=== PATIENT | male | born 1935 | race Hispanic/Latino ===

== ENCOUNTER 2018-06-03 20:20 | Observation (INO) | payer OTHER ==
--- OUTSIDE RECORDS SUMMARY | 2018-06-03 20:22 | XMS REPORT ---
:1935 Author Organization eClinicalWorks Care Team Providers Name Role Phone Gina Catalan Provider Role Unavailable Allergies, Adverse Reactions, Alerts Substance Reaction Event Type N.K.D.A. 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 Active Problem 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 Active Problem Hyperlipidemia, mixed E78.2 Active Problem Left sided colitis with rectal K51.511 Active bleeding Problem HTN (hypertension) I10 Active Problem Glaucoma H40.9 Active Problem Cataract H26.9 Active Problem Spinal stenosis in cervical region M48.02 Active Problem Left sided colitis with rectal K51.511 Active bleeding Problem Thrombocytopenia D69.6 Active Problem Degenerative cervical disc M50.30 Active Problem Mixed hyperlipidemia E78.2 Active Problem Chronic systolic congestive heart I50.22 Active failure Medications Medication Code Code Instructions Start End Status Dosage System Date Date [facility] 19741198847 81 MG Orally Active 1 tablet Once a day Metoprolol [facility] 87563519245 25 MG Orally Active 1 tablet Tartrate Twice a day with food Combigan [facility] 12009247375 0.2-0.5 % Active 1 drop into Ophthalmic affected Twice a day eye Pravastatin ND 70318686138 20 MG Orally Active 1 tablet Sodium Once a day Metoprolol ND 71313987984 25 MG Orally Active 1 tablet Tartrate Twice a day with food Pravastatin [facility] 73364579903 20 MG Orally Active 1 tablet Sodium Once a day Travatan Z ND 22860044064 0.004 % Active 1 drop into Ophthalmic Once affected a day eye in the evening Results No Known Results Immunizations Vaccine Administration Date FluAD Jan 06, 2018 Summary Purpose eClinicalWorks Submission
--- OUTSIDE RECORDS SUMMARY | 2018-06-03 20:22 | XMS REPORT ---
:1935 Author Organization eClinicalWorks Care Team Providers Name Role Phone Catalan, Na Provider Role Unavailable Allergies, Adverse Reactions, Alerts Substance Reaction Event Type N.K.D.A. 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 Problem Systolic CHF I50.20 Active Problem Congestive heart failure, systolic, I50.20 Active left NYHA class 4 Problem Cataract H26.9 Active Assessment Medicare annual wellness visit, Z00.00 Active initial Problem Glaucoma H40.9 Active Problem Benign essential [...] Start End Status Dosage System Date Date Travatan Z [facility] 63777671660 0.004 % Active 1 drop into Ophthalmic Once affected a day eye in the evening Combigan [facility] 04934518035 0.2-0.5 % Active 1 drop into Ophthalmic affected Twice a day eye Entresto [facility] 20832036573 24/26mg oral Dec 03, Active one 24/26mg bid 2017 Pravastatin ND 45049503508 20 MG Orally Active 1 tablet Sodium Once a day Metoprolol ND 75582346120 25 MG Orally Active 1 tablet Tartrate Twice a day with food Aspir-81 [facility] 10174005422 81 MG Orally Active 1 tablet Once a day Results No Known Results Summary Purpose eClinicalWorks Submission
--- OUTSIDE RECORDS SUMMARY | 2018-06-03 20:22 | XMS REPORT ---
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 Problem Mixed hyperlipidemia E78.2 Active Problem Chronic systolic congestive heart I50.22 Active failure Medications Medication Code Code Instructions Start End Status Dosage System Date Date Combigan [facility] [place] 46616801205 0.2-0.5 % Active 1 drop into Ophthalmic affected Twice a day eye Travatan Z [facility] [place] 16509605309 0.004 % Active 1 drop into Ophthalmic Once affected a day eye in the evening Pravastatin [facility] [place] 39427832249 20 MG Orally Active 1 tablet Sodium Once a day Aspir-81 [facility] [place] 55714259989 81 MG Orally Active 1 tablet Once a day Pravastatin [facility] [place] 30173003866 20 MG Orally Active 1 tablet Sodium Once a day Metoprolol [facility] [place] 48747247475 25 MG Orally Active 1 tablet Tartrate Twice a day with food Metoprolol [facility] [place] 31572680913 25 MG Orally Active 1 tablet Tartrate Twice a day with food Results No Known Results Summary Purpose eClinicalWorks Submission
--- OUTSIDE RECORDS SUMMARY | 2018-06-03 20:22 | XMS REPORT ---
:1935 Author Organization eClinicalWorks Care Team Providers Name Role Phone Catalan, Gina Provider Role Unavailable Allergies, Adverse Reactions, Alerts Substance Reaction Event Type N.K.D.A. 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 Problem Systolic CHF I50.20 Active Problem Congestive heart failure, systolic, I50.20 Active left NYHA class 4 Problem Cataract H26.9 Active Problem Glaucoma H40.9 Active Assessment HTN (hypertension) I10 Active Assessment Chronic systolic congestive heart I50.22 Active failure Problem Benign essential HTN I10 Active Assessment Mixed hyperlipidemia E78.2 Active Problem Degenerative disc disease, cervical M50.30 [...] Active bleeding Problem Thrombocytopenia D69.6 Active Problem Mixed hyperlipidemia E78.2 Active Medications Medication Code Code Instructions Start End Status Dosage System Date Date Travatan Z ND 23868156319 0.004 % Active 1 drop into Ophthalmic affected eye Once a day in the evening Indomethacin ND 67352317553 50 MG Orally Jan 25, Active 1 capsule TID 2017 Combigan [facility] 52612100386 0.2-0.5 % Active 1 drop into Ophthalmic affected eye Twice a day Clotrimazole-Be ND 00317278517 1-0.05 % Mar 06, Active 1 application tamethasone Externally 2018 to affected Twice a day area Vitamin D-3 [facility] 412[address] Active not defined Clindamycin HCl [facility] 03351733912 300 MG Orally Oct 20, Active 1 capsule QID 2017-81 [facility] 12485639421 81 MG Orally Active 1 tablet Once a day Entresto [facility] 26218799349 49/51mg oral Mar 06, Active one 49/51mg bid 2017 Entresto [facility] 0 Active not defined 24/26mg Pravastatin [facility] 31971021876 20 MG Orally Active 1 tablet Sodium Once a day Pravastatin [facility] 34437064808 20 MG Orally Active 1 tablet Sodium Once a day Metoprolol [facility] 04396040540 25 MG Orally Active 1 tablet with Tartrate Twice a day food PreserVision [facility] [address]-55 Active not defined AREDS Fiber Adult [facility] [address] Active not defined Gummies Results No Known Results Summary Purpose eClinicalWorks Submission
--- OUTSIDE RECORDS SUMMARY | 2018-06-03 20:22 | XMS REPORT ---
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 Problem Benign essential HTN I10 Active Problem Degenerative disc disease, cervical M50.30 Active Problem 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 Active Problem Hyperlipidemia, mixed E78.2 Active Problem Left sided colitis with rectal K51.511 Active bleeding Problem HTN (hypertension) I10 Active Problem Glaucoma H40.9 Active Assessment Chronic systolic congestive heart I50.22 Active failure Problem Cataract H26.9 Active Problem Spinal stenosis in cervical region M48.02 Active Problem Left sided colitis with rectal K51.511 Active bleeding Problem Thrombocytopenia D69.6 Active Problem Degenerative cervical disc M50.30 Active Assessment Thrombocytopenia D69.6 Active Problem Mixed hyperlipidemia E78.2 Active Problem Chronic systolic congestive heart I50.22 Active failure Medications Medication Code Code Instructions Start End Status Dosage System Date Date Entresto [facility] 68610321728 24/26mg oral Dec 03, Active one 24/26mg bid 2017 Metoprolol [facility] 17885378275 25 MG Orally Active 1 tablet Tartrate Twice a day with food Travatan Z ND 58996557766 0.004 % Active 1 drop into Ophthalmic Once affected a day eye in the evening Combigan [facility] 97240955938 0.2-0.5 % Active 1 drop into Ophthalmic affected Twice a day eye Pravastatin ND 67497029733 20 MG Orally Active 1 tablet Sodium Once a day Aspir-81 [facility] 52962846425 81 MG Orally Active 1 tablet Once a day Results No Known Results Summary Purpose eClinicalWorks Submission
--- OUTSIDE RECORDS SUMMARY | 2018-06-03 20:22 | XMS REPORT ---
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
--- OUTSIDE RECORDS SUMMARY | 2018-06-03 20:22 | XMS REPORT | Clinical Summary ---
:1935 Author Organization [facility] Address [address] [place] [address] Care Team Providers Name Role Phone Gina Catalan DO Primary Care Provider Allergies No Known Allergies Medications Medication Sig Dispensed Refills Start Date End Date Status traMADol (ULTRAM) 50 Take 50 mg by mouth 0 Active mg tablet every 6 (six) hours as needed for moderate pain (prn for pain). pravastatin Take 20 mg by mouth 0 Active (PRAVACHOL) 20 MG nightly. tablet aspirin (ECOTRIN) 81 Take 81 mg by mouth 0 Active MG enteric coated daily. tablet travoprost 1 drop nightly. 0 Active (TRAVATAN-Z) 0.004 % timolol (BETIMOL) 0.5 Administer 1 drop 0 Active % ophthalmic solution to the right eye 2 (two) times a day. metoprolol succinate Take 25 mg by mouth 0 Active XL (TOPROL-XL) 25 mg daily. 24 hr tablet sacubitril-valsartan Take 1 tablet by 0 Active (ENTRESTO) 24-26 mg mouth 2 (two) times tablet per tablet a day. cholecalciferol, Take 1,000 Units by 0 Active vitamin D3, (VITAMIN mouth daily. D3) 1,000 unit tablet ANTIOX Take by mouth. 0 Active #8/OM3/DHA/EPA/LUT/ZE AX (PRESERVISION AREDS 2, OMEGA-3, ORAL) BRAN/GUM/FIB/ERIC/PSYL Take by mouth. 0 Active /KELP/PEC (FIBER 6 ORAL) Active Problems Problem Noted Date Cardiomyopathy 12/26/2016 Family History Medical History Relation Name Comments Hypertension Mother Relation Name Status Comments Father Mother Social History Tobacco Use Types Packs/Day Years Used Date Former Smoker Quit: 12/26/1963 Alcohol Use Drinks/Week oz/Week Comments No Sex Assigned at Date Recorded Not on file Job Start Date Occupation Industry Not on file Not on file Not on file Travel History Travel Start Travel End No recent travel history available. Last Filed Vital Signs Not on file Plan of Treatment Health Maintenance Due Date Last Done Comments SHINGLES VACCINES (#1) 1984 65+ PNEUMOCOCCAL VACCINE (1 of 2 - PCV13) 07/04/1999 PNEUMOCOCCAL POLYSACCHARIDE VACCINE AGE 65 AND OVER 07/04/1999 INFLUENZA VACCINE 11/06/2017 Implants Implanted Type Area Animal Science Professor Device Shelf Model / Identifier Expiration Serial / Date Lot Endotak [place] G Model 0295 59 Cm Df4 Tachy Lead - [id number] - [id number] Cardiac Pacing N/A: [place] 06/01/2018 0295 / Implanted: Qty: 1 on 12/26/2016 by Venkata Millard Jr., MD Leads or N/A [employer] [id number] / Electrodes or [id number] Accessories Acuity X4 Spiral S Lv Pacing Lead - [id number] - [id number] Cardiac Pacing N/A: [place] 02/08/2018 4674 / Implanted: Qty: 1 on 12/26/2016 by Venkata Millard Jr., MD Leads or N/A [employer]Qi CRM [id number] / Electrodes or [id number] Accessories Ingevity Ld Bg1 Pfret Str Mri Is1 7740 45cm - [id number] - [id number] Cardiac Pacing N/A: [place] 07/05/2018 7740 / Implanted: Qty: 1 on 12/26/2016 by Venkata Millard Jr., MD Leads or N/A [employer] CRM [id number] / Electrodes or [id number] Accessories Generator Media Professional-D Dynagen X4 Df4 - [id number] - [id number] Defibrillator N/A: [place] 07/10/2018 G158 / Implanted: Qty: 1 on 12/26/2016 by Venkata Millard Jr., MD ICD Devices N/A SCIENTIFIC- CRM [id number] / [id number] Results Not on fileafter 06/02/2017 Insurance Payer Benefit Plan / Group Subscriber ID Type Phone Address MEDICARE MEDICARE PART A AND B xxxxxxxxxx Medicare [place], [place] Advance Directives Patient has advance care planning documents on file. For more information, please contact:H[address] [place] [address]
[2018-06-03 21:14] LABS: Absolute Lymphocytes (CBC) 2.1 K/uL (0.7-4.9); Absolute Monocytes 0.8 K/uL (0.1-1.3); Absolute Neutrophil 4.7 K/uL (1.8-8.0); Basophils % 1.2 % (0-1.3); Eosinophils % 6.5 % (0-4.4); Hematocrit 43.2 % (39.6-49.0); Lymphocytes % 25.6 % (15.3-44.8); MPV 11.9 fL (7.6-11.3); Monocytes % 9.9 % (3.3-12.3); RBC Red Blood Cell Count 4.47 M/uL (4.33-5.43)
[2018-06-03 21:16] LABS: Protime INR 1.12
[2018-06-03 21:35] LABS: Albumin 3.7 g/dL (3.4-5.0); Bilirubin Direct 0.2 mg/dL (0-0.2); Bilirubin Total 0.4 mg/dL (0.2-1.0); Magnesium 2.2 mg/dL (1.8-2.4); Potassium 3.8 mmol/L (3.5-5.1); Protein, Total 7.2 g/dL (6.4-8.2); Troponin (Emerg Dept Use Only) 0.04 ng/mL (0.0-0.045)
[2018-06-03 22:02] LABS: Blood Morphology Comment NOT SEEN (NOT SEEN); Platelet Estimate ADEQ; Urine White Blood Cell Casts OK
--- NOTE | 2018-06-03 23:01 | ER ---
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 pt denies N/V. pt c/o ak1 SOB. Transition of care: patient was not received from another setting of care. Onset of symptoms was June 03, 2018. Risk Assessment: Do you want to hurt yourself or someone else? Patient reports no desire to harm self or others. Initial Sepsis Screen: Does the patient meet any 2 criteria? No. Patient's initial sepsis screen is negative. Does the patient have a suspected source of infection? No. Patient's initial sepsis screen is negative. Note pt sees Dr. Lopez for cardiology. Care prior to arrival: None. 20:28 Method Of Arrival: Ambulatory ak1 20:28 Acuity: AMRIT 3 ak1 Triage Assessment: 20:28 General: Appears in no apparent distress. Behavior is calm, cooperative. Pain: ak1 Complains of pain in xyphoid area and mid-sternal area. Cardiovascular: Reports chest pain, shortness of breath. Respiratory: Reports shortness of breath at rest on exertion Airway is patent. Historical: - Allergies: 20:28 No Known Allergies; ak1 - Home Meds: 21:32 metoprolol tartrate 25 mg Oral tab once daily [Active]; pravastatin 20 mg Oral tab bb nightly [Active]; travatan eye drop both eyes bid [Active]; aspirin 81 mg Oral chew 1 tab once daily [Active]; Entresto 24-26 mg oral tab [Active]; - PMHx: 20:28 Glaucoma; High Cholesterol; Hypertension; ak1 - PSHx: 20:28 pacemaker/deifb; ak1 - Immunization history:: Adult Immunizations unknown. - Social history:: Smoking status: Patient/guardian denies using tobacco. - Ebola Screening: : No symptoms or risks identified at this time. Screenin:22 Abuse screen: Denies threats or abuse. Denies injuries from another. Nutritional ls4 screening: No deficits noted. Tuberculosis screening: No symptoms or risk factors identified. Fall Risk None identified. Assessment: 20:22 General: Appears in no apparent distress. Behavior is calm, cooperative. ls4 20:22 Pain: Pain does not radiate. Pain began suddenly, 1 hour ago. Is intermittent, Also ls4 complains of diaphoresis. Cardiovascular: Capillary refill < 3 seconds. Respiratory: Respiratory effort is even, unlabored, Respiratory pattern is regular. Musculoskeletal: No deficits noted. 23:08 Reassessment: Patient appears in no apparent distress at this time. Patient and/or ak1 family updated on plan of care and expected duration. Pain level reassessed. Patient is alert, oriented x 3, equal unlabored respirations, skin warm/dry/pink. pt and family informed of admission status. will continue to monitor. Patient states feeling better. Patient states symptoms have improved. 06/04 00:40 Reassessment: Patient appears in no apparent distress at this time. pt resting with ak1 eyes closed resp even and unlabored. 01:51 Reassessment: Patient appears in no apparent distress at this time. No changes from ak1 previously documented assessment. Vital Signs: 06/03 20:28 BP 147 / 103; Pulse 111; Resp 18; Temp 98.6; Pulse Ox 98% on R/A; Weight 77.11 kg (R); ak1 Height 5 ft. 6 in. (167.64 cm) (R); Pain 0/10; 21:34 BP 130 / 79; Pulse 89; Resp 16; Pulse Ox 98% on R/A; Pain 0/10; ls4 23:07 BP 124 / 82; Pulse 84; Resp 20; Temp 98.6; Pulse Ox 98% on R/A; ak1 06/04 00:40 BP 115 / 67; Pulse 82; Resp 14; Pulse Ox 98% on R/A; Pain 0/10; ak1 01:51 BP 125 / 67; Pulse 82; Resp 12; Pulse Ox 99% on R/A; Pain 0/10; ak1 06/03 20:28 Body Mass Index 27.44 (77.11 kg, 167.64 cm) ak ED Course: 06/03 20:20 Patient arrived in ED. am2 20:21 Gina Catalan MD is Private Physician. am2 20:28 Triage completed. ak1 20:28 Arm band placed on Patient placed in an exam room, on a stretcher, Patient notified of ak1 wait time. EKG completed in triage. Results shown to MD. 20:30 monitoring engineer on. Pulse ox on. NIBP on. ls4 20:30 Patient has correct armband on for positive identification. Placed in gown. Bed in low ls4 position. Call light in reach. Side rails up X 1. 20:30 No provider procedures requiring assistance completed. Inserted saline lock: 20 gauge ls4 in right forearm, using aseptic technique. Patient maintains SpO2 saturation greater than 95% on room air. 20:30 Initial lab(s) drawn, by me, sent to lab. ls4 20:33 Mauricio Greco MD is Attending Physician. tw4 20:41 Maria Fernanda Lindsay, RN is Primary Nurse. ls4 21:32 XRAY Chest (1 view) In Process Unspecified. EDMS 22:55 Sarah Infante MD is Hospitalizing Provider. tw4 23:09 Patient admitted, IV remains in place. ak1 Administered Medications: No medications were administered Outcome: 23:00 Decision to Hospitalize by Provider. tw4 06/04 00:41 Condition: good ak1 00:41 Instructed on the need for admit. ak1 02:21 Admitted to Tele accompanied by tech, via wheelchair, room 428, with chart. ak1 02:47 Patient left the ED. ak1 Signatures: Dispatcher [employer] EDMS Zoë Mason, RN RN Bri Olsen RN RN ak1 Nory Montelongo 2 Mauricio Greco MD MD tw4 Maria Fernanda Lindsay, RN RN 4
--- NOTE | 2018-06-03 23:01 | EDPHYS ---
Physician Documentation [facility] Name: Elvis Church Age: 82 yrs Sex: Male : 1935 Arrival Date: 06/03/2018 Time: 20:20 Bed 15 Private MD: Gina Catalan ED Physician Mauricio Greco HPI: 06/04 00:28 This 82 yrs old Male presents to ER via Ambulatory with complaints of Chest tw4 Pain. 00:28 The patient or guardian reports chest pain that is located primarily in the anterior tw4 chest wall, left. Onset: today. The pain does not radiate. Associated signs and symptoms: The patient has no apparent associated signs or symptoms. The chest pain is described as a pressure. Duration: The patient or guardian reports a single episode, that is now resolved, . Modifying factors: The symptoms are alleviated by nothing. the symptoms are aggravated by nothing. Severity of pain: At its worst the pain was very mild. Historical: - Allergies: 06/03 20:28 No Known Allergies; ak1 - Home Meds: 21:32 metoprolol tartrate 25 mg Oral tab once daily [Active]; pravastatin 20 mg Oral tab bb nightly [Active]; travatan eye drop both eyes bid [Active]; aspirin 81 mg Oral chew 1 tab once daily [Active]; Entresto 24-26 mg oral tab [Active]; - PMHx: 20:28 Glaucoma; High Cholesterol; Hypertension; ak1 - PSHx: 20:28 pacemaker/deifb; ak1 - Immunization history:: Adult Immunizations unknown. - Social history:: Smoking status: Patient/guardian denies using tobacco. - Ebola Screening: : No symptoms or risks identified at this time. ROS: 06/04 00:28 Constitutional: Negative for fever, chills, and weight loss, Eyes: Negative for injury, tw4 pain, redness, and discharge, Respiratory: Negative for shortness of breath, cough, wheezing, and pleuritic chest pain, Abdomen/GI: Negative for abdominal pain, nausea, vomiting, diarrhea, and constipation, Back: Negative for injury and pain. MS/Extremity: Negative for injury and deformity, Skin: Negative for injury, rash, and discoloration, Neuro: Negative for headache, weakness, numbness, tingling, and seizure. Cardiovascular: Positive for chest pain, Negative for edema, orthopnea, palpitations. Exam: 00:58 Constitutional: This is a well developed, well nourished patient who is awake, alert, tw4 and in no acute distress. Head/Face: Normocephalic, atraumatic. Chest/axilla: Normal chest wall appearance and motion. Nontender with no deformity. No lesions are appreciated. Respiratory: Lungs have equal breath sounds bilaterally, clear to auscultation and percussion. No rales, rhonchi or wheezes noted. No increased work of breathing, no retractions or nasal flaring. Abdomen/GI: Soft, non-tender, with normal bowel sounds. No distension or tympany. No guarding or rebound. No evidence of tenderness throughout. Back: No spinal tenderness. No costovertebral tenderness. Full range of motion. MS/ Extremity: Pulses equal, no cyanosis. Neurovascular intact. Full, normal range of motion. Neuro: Awake and alert, GCS 15, oriented to person, place, time, and situation. Cranial nerves II-XII grossly intact. Motor strength 5/5 in all extremities. Sensory grossly intact. Cerebellar exam normal. Normal gait. Vital Signs: 06/03 20:28 BP 147 / 103; Pulse 111; Resp 18; Temp 98.6; Pulse Ox 98% on R/A; Weight 77.11 kg (R); ak1 Height 5 ft. 6 in. (167.64 cm) (R); Pain 0/10; 21:34 BP 130 / 79; Pulse 89; Resp 16; Pulse Ox 98% on R/A; Pain 0/10; ls4 23:07 BP 124 / 82; Pulse 84; Resp 20; Temp 98.6; Pulse Ox 98% on R/A; ak1 06/04 00:40 BP 115 / 67; Pulse 82; Resp 14; Pulse Ox 98% on R/A; Pain 0/10; ak1 01:51 BP 125 / 67; Pulse 82; Resp 12; Pulse Ox 99% on R/A; Pain 0/10; ak1 06/03 20:28 Body Mass Index 27.44 (77.11 kg, 167.64 cm) [facility] MDM: 06/03 20:33 Patient medically screened. tw4 06/04 00:58 Data reviewed: vital signs, nurses notes. tw4 00:58 Data interpreted: night monitor: rhythm is normal sinus rhythm. Test interpretation: tw4 by ED physician or midlevel provider: ECG. Counseling: I had a detailed discussion with the patient and/or guardian regarding: the historical points, exam findings, and any diagnostic results supporting the discharge/admit diagnosis. Physician consultation: Sarah Infante MD regarding admission, to the telemetry unit. patient's condition, and will see patient in ED. 06/03 20:33 Order name: Basic Metabolic Panel; Complete Time: 22:53 [facility] 06/03 22:53 Interpretation: Normal except: GLUC 110; CL 111; BUN 22; GFR 82. tw 06/03 20:33 Order name: CBC with Diff; Complete Time: 22:53 [facility] 06/03 22:54 Interpretation: Normal except: MPV 11.9; PLT 129; EOSINOPHIL % 6.5. 06/03 20:33 Order name: LFT's; Complete Time: 22:54 [facility] 06/03 22:54 Interpretation: Normal except: AST 9; ALK 41. [facility] 06/03 20:33 Order name: Magnesium; Complete Time: 22:54 [facility] 06/03 22:54 Interpretation: Within normal limits: MG 2.2. 06/03 20:33 Order name: NT PRO-BNP; Complete Time: 22:54 [facility] 06/03 22:54 Interpretation: Normal except: NT PRO-BNP 3991. 06/03 20:33 Order name: PT-INR; Complete Time: 22:54 [facility] 06/03 22:54 Interpretation: Normal except: PT 13.2. 06/03 20:33 Order name: Troponin (emerg Dept Use Only); Complete Time: 22:54 [facility] 06/03 22:54 Interpretation: Within normal limits: TROPED 0.04. 06/03 20:33 Order name: XRAY Chest (1 view) [facility] 06/03 21:27 Order name: CBC Smear Scan; Complete Time: 22:54 [facility] 06/04 01:53 Order name: Lipid Profile [facility] 06/04 01:53 Order name: Lipid Profile [facility] 06/04 01:53 Order name: Troponin I [facility] 06/04 01:53 Order name: Troponin I [facility] 06/04 01:53 Order name: Troponin I [facility] 06/03 20:33 Order name: EKG; Complete Time: 20:34 [facility] 06/03 20:33 Order name: Cardiac monitoring; Complete Time: 20:46 [facility] 06/03 20:33 Order name: EKG - Nurse/Tech; Complete Time: 20:46 [facility] 06/03 20:33 Order name: IV Saline Lock; Complete Time: 20:46 [facility] 06/03 20:33 Order name: Labs collected and sent; Complete Time: 20:46 [facility] 06/03 20:33 Order name: O2 Per Protocol; Complete Time: 20:46 [facility] 06/03 20:33 Order name: O2 Sat Monitoring; Complete Time: 20:46 [facility] 06/04 01:53 Order name: CONS Physician Consult [facility] 06/04 01:53 Order name: Heart Healthy [facility] 06/04 01:53 Order name: Echo with Doppler [facility] 06/04 01:53 Order name: EKG Electrocardiogram [facility] EC:58 Rate is 87 beats/min. Rhythm is regular with Ventricular paced. QRS [place] is Normal. CT tw4 interval is normal. QRS interval is normal. QT interval is normal. T waves are Normal. No ST changes noted. Clinical impression: NSR w/ Non-specific ST/T Changes. Interpreted by me. Reviewed by me. Administered Medications: No medications were administered Disposition: 06/03/18 23:00 Hospitalization ordered by Sarah Infante for Observation. Preliminary diagnosis is Chest pain, unspecified. - Bed requested for Telemetry/MedSurg (observation). - Status is Observation. ak1 - Condition is Fair. - Problem is new. - Symptoms have improved. UTI on Admission? No Signatures: Dispatcher [employer] [facility] Zoë Mason RN RN bb Krenek, Amber, RN RN ak1 Tiffany Nelson RN Mauricio Chung MD MD tw4 Owen Burrows mw2 Corrections: (The following items were deleted from the chart) 06/03 23:00 Hospitalization Ordered by Sarah Infante MD for Observation. Preliminary mw2 diagnosis is Chest pain, unspecified. Bed requested for Telemetry/MedSurg (observation). Status is Observation. Condition is Fair. Problem is new. Symptoms have improved. UTI on Admission? No. 4 06/04 02:02 02:02 06/03/2018 23:00 Hospitalization Ordered by Sarah Infante MD for Observation. cg Preliminary diagnosis is Chest pain, unspecified. Bed requested for Telemetry/MedSurg (observation). Status is Observation. Condition is Fair. Problem is new. Symptoms have improved. UTI on Admission? No. mw2 02:07 02:02 06/03/2018 23:00 Hospitalization Ordered by Sarah Infante MD for Observation. cg Preliminary diagnosis is Chest pain, unspecified. Bed requested for Telemetry/MedSurg (observation). Status is Observation. Condition is Fair. Problem is new. Symptoms have improved. UTI on Admission? No. cg 02:47 02:07 06/03/2018 23:00 Hospitalization Ordered by Sarah Infante MD for Observation. ak1 Preliminary diagnosis is Chest pain, unspecified. Bed requested for Telemetry/MedSurg (observation). Status is Observation. Condition is Fair. Problem is new. Symptoms have improved. UTI on Admission? No. cg
[2018-06-04] MEDS ORDERED: MORPHINE 4 MG/ML SYR IV PRN (01:49)
[2018-06-04] MEDS ORDERED: ACETAMINOPHEN 500 MG TAB PO PRN (01:49)
[2018-06-04] MEDS ORDERED: ALPRAZOLAM 0.25 MG TABLET PO PRN (01:49)
[2018-06-04 05:03] VITALS: BMI 27.8
[2018-06-04 06:37] LABS: Troponin I 0.07 ng/mL (0.0-0.045)
--- NOTE | 2018-06-04 06:56 | EKG ---
Test Date: 2018-06-03 Test Time: 20:28:38 Distribution Superintendent: HAMLET MEASUREMENT RESULTS: Intervals: Rate: 87 NE: QRSD: 166 QT: 420 QTc: 505 [place]: P: 72 NE: QRS: -26 T: 94 INTERPRETIVE STATEMENTS: Electronic ventricular pacemaker Compared to ECG 05/24/2017 21:06:57 AV dual-paced complex(es) or rhythm no longer present Ventricular premature complex(es) no longer present Electronically Signed On 06-04-18 06:55:47 CLINICAL TRAINING COORDINATOR by Zain Tracy
--- NOTE | 2018-06-04 06:59 | EKG ---
Test Date: 2018-06-03 Test Time: 20:29:27 Heel Scourer: HAMLET MEASUREMENT RESULTS: Intervals: Rate: 83 [place]: QRSD: 128 QT: 412 QTc: 484 [place]: P: MN: QRS: -31 T: 252 INTERPRETIVE STATEMENTS: Atrial-sensed ventricular-paced rhythm tracking sinus rhythm with frequent premature ventricular ant atrial complexes Abnormal ECG Compared to ECG 06/03/2018 20:28:38 no significant change from previous ECG Electronically Signed On 06-04-18 06:56:45 BAND CUTTER by Jeffy Lopez
--- NOTE | 2018-06-04 08:13 | RAD REPORT ---
EXAM DESCRIPTION: RAD - Chest Single View - 06/03/2018 9:32 pm CLINICAL HISTORY: CHEST PAIN Chest pain. COMPARISON: Chest Single View dated 05/24/2017; Chest Single View dated 12/11/2016; Chest Pa And Lat (2 Views) dated 12/15/2015; CHEST SINGLE VIEW dated 04/05/2015 FINDINGS: Portable technique limits examination quality. The lungs are grossly clear. The heart is normal in size with the lead pacer/defibrillator device pre sent. No displaced fractures. IMPRESSION: No acute intrathoracic process suspected.
[2018-06-04 08:20] LABS: Urine Appearance CLEAR; Urine Bilirubin NEGATIVE (NEG); Urine Blood NEGATIVE (NEG); Urine Color YELLOW; Urine Glucose NEGATIVE (NEG); Urine Protein NEGATIVE (NEG); Urine Specific Gravity 1.025 (1.005-1.030); Urine Urobilinogen 0.2 mg/dL (0.2-1.0); Urine pH 5.5 (5.0-7.0)
[2018-06-04 08:24] LABS: Urine Microscopic Reflex NO UMIC
[2018-06-04] MEDS ORDERED: ASPIRIN EC 81 MG TAB PO SCH (09:00)
[2018-06-04] MEDS ORDERED: METOPROLOL TAR 50 MG TAB PO SCH (09:00)
[2018-06-04] MEDS ORDERED: LISINOPRIL 10 MG TAB PO SCH (09:00)
[2018-06-04] MEDS ORDERED: SACUBITRIL/VALSARTAN 24/26 MG TAB PO SCH (09:00)
[2018-06-04] MEDS ORDERED: ENOXAPARIN 40 MG/0.4 ML SQ SCH (09:00)
--- NOTE | 2018-06-04 13:07 | CON ---
Date of Consultation: 06/04/2018 Reason For Consultation: Chest pain. History Of Present Illness: He was admitted to Dr. Infante. His was 82. He has a history o f defibrillator. He was followed by and has a history of dyslipidemia, hypertension, ejection fraction of 25%, normal coronaries in 2017, came in with substernal chest burning, radiating to the back with some nausea, but no vomiting or diaphoresis. Denied PND, orthopnea, pedal edema, p alpitations, or syncope. Defibrillator was checked approximately a year ago, that was normal. Past Medical History: As stated above. Allergies: NONE. Review of Systems: Negative. Social History: Negative. Family History: Negative. Medications: Include aspirin, metoprolol, Pravachol, and Entresto. Physical Examination: General: He appears to be in no acute distress. Vital Signs: Stable. Afebrile. HEENT: Negative. Neck: Supple with no bruit. Chest: Clear. Cardiac: Regular rhythm and rate. No murmurs, gallops, or rubs. Abdomen: Benign. Extremities: No clubbing, cyanosis, or edema. Diagnostic Data: All normal except for a BNP of 3991. Chest x-ray is negative. EKG is unremarkable . Impression And Plan: Atypical chest pain with chest burning, most likely related to gastroesophageal reflux disease. There is an echocardiogram pending. He had a normal coronaries in 2017. I will no t repeat any stress test. I think the symptoms are related to gastroesophageal reflux disease and no t coronary artery disease. The echocardiogram should help us to rule out worsening ejection fraction or maybe pericardial effusion. If the echocardiogram does not show any new changes, then we can probably send him home, but I would add a proton pump inhibitor to his regimen and he can go home whenever it is okay with primary care physician. We will see him in the office in the next 2 we eks. PHYLICIA Voice ID: [id number] Report ID: [id number]
--- NOTE | 2018-06-04 13:50 | P.HP ---
Certification for Inpatient Patient admitted to: Observation With expected LOS: <2 Midnights Patient will require the following post-hospital care: None Practitioner: I am a practitioner with admitting privileges, knowledge of patient current condition, hospital course, and medical plan of care. Services: Services provided to patient in accordance with Admission requirements found in Title 42 Section 412.3 of the Code of Federal Regulations Patient History Date of Service: 06/04/18 Reason for admission: Chest pain rule out acute coronary syndrome History of Present Illness: Patient is an 82-year-old gentleman who came into the hospital as her with chest pain. Patient states pain is in the sternal region. There is mild radiation to the left arm. Patient denies any shortness of breath or diaphoresis. Patient states the pain waxes and wanes depending on the time of day that he eats. He has had cardiac workup in the past. He has no evidence of coronary artery disease even at his age. He is admitted for serial troponins and EKG. If his workup is negative then he can follow up as an outpatient with GI. Allergies No Known Allergies Allergy (Verified 06/04/18 03:34) Home Medications: Metoprolol Tartrate [Lopressor*] 25 mg PO DAILY 04/05/15 Pravastatin Sodium [Pravachol] 20 mg PO BEDTIME 04/05/15 Travoprost (Benzalkonium) [Travatan 0.004% Eye Drop] 1 drop RIGHT EYE BEDTIME Aspirin [Aspirin EC 81 MG] 81 mg PO DAILY 05/25/17 Sacubitril/Valsartan [Entresto 24 mg-26 mg Tablet] 1 each PO DAILY 05/25/17 - Past Medical/Surgical History Has patient received pneumonia vaccine in the past: Yes Diabetic: No -: Glaucome, High Cholesterol -: Hypertension -: Congestive heart failure-systolic dysfunction(EF=equals 20-25%) -: Pacemaker/defibrillator -: Cardiac catheterization - Family History Father Medical History: Heart disease - Social History Smoking Status: Never smoker Alcohol use: No CD- Drugs: No Caffeine use: No Place of Residence: Home Review of Systems 10-point ROS is otherwise unremarkable Physical Examination - Vital Signs Temperature: 97.3 F Blood Pressure: 105/62 Pulse: 53 Respirations: 16 Pulse Ox (%): 96 - Physical Exam General: Alert, In no apparent distress, Oriented x3 HEENT: Atraumatic, PERRLA, Mucous membr. moist/pink, EOMI, Sclerae nonicteric Neck: Supple, 2+ carotid pulse no bruit, No LAD, Without JVD or thyroid abnormality Respiratory: Clear to auscultation bilaterally, Normal air movement Cardiovascular: Regular rate/rhythm, Normal S1 S2, No murmurs Gastrointestinal: Normal bowel sounds, Soft and benign, Non-distended, No tenderness, No rebound, No guarding Musculoskeletal: No clubbing, No swelling, No tenderness Integumentary: No rashes Neurological: Normal gait, Normal speech, Normal strength at 5/5 x4 extr, Normal tone, Sensation intact, Cranial nerves 3-12 intact, Normal affect Lymphatics: No axilla or inguinal lymphadenopathy - Studies Laboratory Data (last 24 hrs) 06/03/18 20:51: PT 13.2 H, INR 1.12 06/03/18 20:51: WBC 8.3, Hgb 14.4, Hct 43.2, Plt Count 129 L 06/03/18 20:51: Sodium 143, Potassium 3.8, BUN 22 H, Creatinine 0.89, Glucose 110 H, Magnesium 2.2, Total Bilirubin 0.4, AST 9 L, ALT 15, Alkaline Phosphatase 41 L Assessment & Plan - Problems (Diagnosis) (1) Chest pain, rule out acute myocardial infarction Current Visit: Yes Status: Acute (2) CHF (congestive heart failure) Current Visit: Yes Status: Acute (3) Frequent PVCs Onset Date: 04/06/15 Current Visit: No Status: Acute (4) Presence of combination internal cardiac defibrillator (ICD) and pacemaker Current Visit: No Status: Acute - Plan 1. Serial troponins and EKG 2. Cardiology consultation 3. Echocardiogram 4. Anti-platelet therapy, anti coagulation, beta-jen, statin, and O2 as needed 5. IV morphine for pain 6. Nitro p.r.n. Discharge Plan: Home Plan to discharge in: 48 Hours - Advance Directives Does patient have a Living Will: No Does patient have a Durable POA for Healthcare: Yes - Code Status/Comfort Care Code Status Assessed: Yes Code Status: Full Code Critical Care: No Time Spent Managing PTS Care (In Minutes): 45
--- NOTE | 2018-06-04 14:40 | ECHO ---
HEIGHT: 5 ft 6 in WEIGHT: 172 lb 8 oz DATE OF STUDY: 06/04/[address]: Sarah Infante MD 2-DIMENSIONAL: YES M.MODE: YES DOPPLER: YES COLOR FLOW: YES TDS: PORTABLE: DEFINITY: BUBBLE STUDY: DIAGNOSIS: CHEST PAIN CARDIAC HISTORY: CATHERIZATION: NO SURGERY: NO PROSTHETIC VALVE: NO PACEMAKER: YES MEASUREMENTS (cm) DIASTOLIC (NORMALS) SYSTOLIC (NORMALS) IVSd 1.3 (0.6-1.2) LA Diam 4.0 (1.9-4.0) LVEF 35-39% LVIDd 5.7 (3.5-5.7) LVIDs 4.1 (2.0-3.5) %FS % LVPWd 1.2 (0.6-1.2) Ao Diam 3.1 (2.0-3.7) 2 DIMENSIONAL ASSESSMENT: RIGHT ATRIUM: DILATED LEFT ATRIUM: DILATED RIGHT VENTRICLE: PACEMAKER CATHETER LEFT VENTRICLE: LEFT VENTRICULAR HYPERTROPHY TRICUSPID VALVE: NORMAL MITRAL VALVE: NORMAL PULMONIC VALVE: NORMAL AORTIC VALVE: NORMAL PERICARDIAL EFFUSION: NONE AORTIC ROOT: NORMAL LEFT VENTRICULAR WALL MOTION: GLOBAL HYPOKINESIS. DOPPLER/COLOR FLOW: MILD MITRAL REGURGITATION AND TRICUSPID REGURGITATION. NORMAL RIGHT VENTRICULAR SYSTOLIC PRESSURE. COMMENTS: MILDLY DEPRESSED LEFT VENTRICULAR EJECTION FRACTION. LEFT VENTRICULAR HYPERTROPHY. DILATED LEFT ATRIUM. PACEMAKER CATHETER IN RIGHT VENTRICLE. MILD MITRAL REGURGITATION AND TRICUSPID REGURGITATION. TECHNOLOGIST: ADRIENNE TOPETE
[2018-06-04 17:22] VITALS: BP 102/56; TEMP 98.3
[2018-06-04 17:32] VITALS: O2SAT 98
[2018-06-04] MEDS ORDERED: ATORVASTATIN 10 MG TAB PO SCH (21:00)
[2018-06-04] MEDS ORDERED: HOME MED 1 EA UNK (Travoprost (Benzalkonium) [Travatan 0.004% Eye Drop] 1 DROP) RIGHT EYE SCH (21:00)
[2018-06-05] MEDS ORDERED: ASPIRIN EC 81 MG TAB PO SCH (09:00)
[2018-06-05] MEDS ORDERED: METOPROLOL TAR 25 MG TAB PO SCH (09:00)
== END 2018-06-04 18:09 | disposition home or self-care (01) ==
LOC: ER 20:20 → ERHOLD 06-04 01:50 → 4TH 06-04 02:25
PROVIDERS: ADMIT Hospitalist; ATTEND Hospitalist
DX: R07.9 Chest pain, unspecified (principal); I49.3 Ventricular premature depolarization; I11.0 Hypertensive heart disease with heart failure; I50.22 Chronic systolic (congestive) heart failure; Z95.810 Presence of automatic (implantable) cardiac defibrillator
CPT/HCPCS: 93005 ×2; 93306; 85025; 80048; 36415; 83735; 85610; 80061; 80076; 81003; 84484 ×3; 83880; 71045; 99285; J1650; G0378 ×2

== ENCOUNTER 2018-11-05 01:33 | Inpatient (IN) | payer OTHER ==
--- OUTSIDE RECORDS SUMMARY | 2018-11-05 01:36 | XMS REPORT ---
[...] Dosage System Date Date Travatan Z ND 09364247035 0.004 % Active 1 drop into Ophthalmic affected eye Once a day in the evening Indomethacin ND 16051217029 50 MG Orally Jan 25, Active 1 capsule TID 2017 Combigan [facility] 46826261682 0.2-0.5 % Active 1 drop into Ophthalmic affected eye Twice a day Clotrimazole-Be ND 54176713261 1-0.05 % Mar 06, Active 1 application tamethasone Externally 2018 to affected Twice a day area Vitamin D-3 [facility] [address] Active not defined Clindamycin HCl [facility] 18722922921 300 MG Orally Oct 20, Active 1 capsule QID 2017-81 [facility] 23089591326 81 MG Orally Active 1 tablet Once a day Entresto [facility] 96035843783 49/51mg oral Mar 06, Active one 49/51mg bid 2017 Entresto [facility] 0 Active not defined 24/26mg Pravastatin [facility] 37809083769 20 MG Orally Active 1 tablet Sodium Once a day Pravastatin [facility] 56416703718 20 MG Orally Active 1 tablet Sodium Once a day Metoprolol [facility] 94768754675 25 MG Orally Active 1 tablet with Tartrate Twice a day food PreserVision [facility] [address]-19 Active not defined AREDS Fiber Adult [facility] [address] Active not defined Gummies Results No Known Results Summary Purpose eClinicalWorks Submission
--- OUTSIDE RECORDS SUMMARY | 2018-11-05 01:36 | XMS REPORT ---
[...] Status Dosage System Date Date Travatan Z [facility] 51847274844 0.004 % Active 1 drop into Ophthalmic Once affected a day eye in the evening Combigan [facility] 22918432334 0.2-0.5 % Active 1 drop into Ophthalmic affected Twice a day eye Entresto [facility] 37023324327 24/26mg oral Dec 03, Active one 24/26mg bid 2017 Pravastatin ND 25300854480 20 MG Orally Active 1 tablet Sodium Once a day Metoprolol ND 91022294901 25 MG Orally Active 1 tablet Tartrate Twice a day with food Aspir-81 [facility] 58446545093 81 MG Orally Active 1 tablet Once a day Results No Known Results Summary Purpose eClinicalWorks Submission
--- OUTSIDE RECORDS SUMMARY | 2018-11-05 01:36 | XMS REPORT ---
:1935 Author Organization eClinicalWorks Care Team Providers Name Role Phone Hossein, Gina Provider Role Unavailable Allergies, Adverse Reactions, Alerts Substance Reaction Event Type N.K.D.A. 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 Active Problem Hyperlipidemia, mixed E78.2 Active Problem Left sided colitis with rectal K51.511 Active bleeding Problem Degenerative disc disease, cervical M50.30 Active Problem Osteoarthritis, 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 Problem Left sided colitis with rectal K51.511 Active bleeding Problem Degenerative cervical disc M50.30 Active Problem Chronic systolic congestive heart I50.22 Active failure Problem Cataract H26.9 Active Problem HTN (hypertension) I10 Active Problem Mixed hyperlipidemia E78.2 Active Problem Glaucoma H40.9 Active Problem Spinal stenosis in cervical region M48.02 Active Problem Thrombocytopenia D69.6 Active Medications Medication Code Code Instructions Start End Status Dosage System Date Date PreserVision [facility] [address]-71 Active not defined AREDS Entresto 24/26mg NDC 0 Active not defined Combigan [facility] 18345748100 0.2-0.5 % Active 1 drop into Ophthalmic affected eye Twice a day Indomethacin ND 99270282647 50 MG Orally Oct 20, Active 1 capsule TID 2017 Clarithromycin ND 05420564504 500 MG Orally Active 1 tablet every 12 hrs Pravastatin ND 21560634944 20 MG Orally Active 1 tablet Sodium Once a day Amoxicillin ND 03846534445 500 MG Orally Active 1 capsule every 8 hrs Tramadol HCl ND 72118585589 50 MG Orally June Active as directed every 8 hours , 27, prn pain 2018 2018 Vitamin D-3 [facility] [address] Active not defined Clotrimazole-Bet [facility] 23307513188 1-0.05 % Mar 06, Active 1 application amethasone Externally 2018 to affected Twice a day area Aspir-81 [facility] 09093674653 81 MG Orally Active 1 tablet Once a day Travatan Z [facility] 37394357653 0.004 % Active 1 drop into Ophthalmic affected eye Once a day in the evening Fiber Adult [facility] [address] Active not defined Gummies Protonix [facility] 77853340029 40 MG Orally Active 1 tablet Once a day Bactrim DS [facility] 48343763947 800-160 MG June Active 1 tablet Orally Twice a 2018 Entresto 49/51mg [facility] 48549467032 49/51mg oral Active one bid Metoprolol [facility] 45671124424 25 MG Orally June Active 1 capsule Succinate Once a day 2018 Results No Known Results Summary Purpose eClinicalWorks Submission
--- OUTSIDE RECORDS SUMMARY | 2018-11-05 01:36 | XMS REPORT ---
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 Problem Systolic CHF I50.20 Active Problem Congestive heart failure, systolic, I50.20 Active left NYHA class 4 Problem Cataract H26.9 Active Assessment Wound check, abscess Z51.89 Active Problem Glaucoma H40.9 Active Problem Benign [...] End Status Dosage System Date Date Combigan [facility] 74881106075 0.2-0.5 % Active 1 drop into Ophthalmic affected eye Twice a day Fiber Adult [facility] [address] Active not defined Gummies Entresto 49/51mg [facility] 12486449344 49/51mg oral Active one bid Clarithromycin [facility] 13924555751 500 MG Orally Active 1 tablet every 12 hrs Metoprolol [facility] 15331515175 25 MG Orally June Active 1 capsule Succinate Once a day 2018 Entresto 24/26mg ND 0 Active not defined Clotrimazole-Bet [facility] 60729567112 1-0.05 % Mar 06, Active 1 application amethasone Externally 2017 to affected Twice a day area Tramadol HCl [facility] 03132310782 50 MG Orally June Active as directed every 8 hours , , prn pain 2018 2018 Aspir-81 [facility] 75668636933 81 MG Orally Active 1 tablet Once a day Travatan Z [facility] 19602375696 0.004 % Active 1 drop into Ophthalmic affected eye Once a day in the evening Pravastatin [facility] 51299085472 20 MG Orally Active 1 tablet Sodium Once a day Amoxicillin [facility] 78634322031 500 MG Orally Active 2 tablets every 12 hrs Protonix [facility] 49243729698 40 MG Orally Active 1 tablet Once a day PreserVision [facility] [address]-96 Active not defined AREDS Bactrim DS [facility] 75315186757 800-160 MG June Active 1 tablet Orally Twice a 2018 Vitamin D-3 [facility] [address] Active not defined Indomethacin [facility] 06367452158 50 MG Orally Jan 25, Active 1 capsule TID 2017 Results No Known Results Summary Purpose eClinicalWorks Submission
--- OUTSIDE RECORDS SUMMARY | 2018-11-05 01:36 | XMS REPORT | Clinical Summary ---
:1935 Author Organization [facility] Address [address] [place] [address] Care Team Providers Name Role Phone Gina [...] VACCINE (1 of 2 - PCV13) 07/04/1999 INFLUENZA VACCINE 11/06/2018 Implants Implanted Type Area Stamping Die Maker Bench Device Shelf Model / Identifier Expiration Serial / Date Lot Endotak [place] G Model 0295 59 Cm Df4 Tachy Lead - [id number] - [id number] Cardiac Pacing N/A: [place] 06/01/2018 0295 / Implanted: Qty: 1 on 12/26/2016 by Venkata Millard Jr., MD Leads or N/A SCIENTIFIC- CRM [id number] / Electrodes or [id number] Accessories Acuity X4 Spiral S Lv Pacing Lead - [id number] - [id number] Cardiac Pacing N/A: [place] 02/08/2018 4674 / Implanted: Qty: 1 on 12/26/2016 by Venkata Millard Jr., MD Leads or N/A [employer]IFIC- CRM [id number] / Electrodes or [id number] Accessories Ingevity Ld Bg1 Pfret Str Mri Is1 7740 45cm - [id number] - [id number] Cardiac Pacing N/A: [place] 07/05/2018 7740 / Implanted: Qty: 1 on 12/26/2016 by Venakta Millard Jr., MD Leads or N/A [employer]- CRM [id number] / Electrodes or [id number] Accessories Generator Lead Etl Developer-D Dynagen X4 Df4 - [id number] - [id number] Defibrillator N/A: [place] 07/10/2018 G158 / Implanted: Qty: 1 on 12/26/2016 by Venkata Millard Jr., MD ICD Devices N/A [employer]- CRM [id number] / [id number] Results Not on fileafter 11/04/2017 Insurance Payer Benefit Plan / Subscriber ID Effective Dates Phone Address Type Group MEDICARE MEDICARE PART A xxxxxxxxxx 1999-Present [place], [place] Medicare AND B Advance Directives Patient has advance care planning documents on file. For more information, please contact:Hipolito Porter[address] [place] [address]
--- OUTSIDE RECORDS SUMMARY | 2018-11-05 01:36 | XMS REPORT ---
[...] End Status Dosage System Date Date Combigan [facility] 83951296912 0.2-0.5 % Active 1 drop into Ophthalmic affected Twice a day eye Travatan Z [facility] 56792971909 0.004 % Active 1 drop into Ophthalmic Once affected a day eye in the evening Pravastatin [facility] 18933251291 20 MG Orally Active 1 tablet Sodium Once a day Aspir-81 [facility] 63486716771 81 MG Orally Active 1 tablet Once a day Pravastatin [facility] 79806918829 20 MG Orally Active 1 tablet Sodium Once a day Metoprolol [facility] 88331036971 25 MG Orally Active 1 tablet Tartrate Twice a day with food Metoprolol [facility] 51300499773 25 MG Orally Active 1 tablet Tartrate Twice a day with food Results No Known Results Summary Purpose eClinicalWorks Submission
--- OUTSIDE RECORDS SUMMARY | 2018-11-05 01:36 | XMS REPORT ---
[...] systolic congestive heart I50.22 Active failure Medications No Known Medications Results No Known Results Summary Purpose [employer] Submission
--- OUTSIDE RECORDS SUMMARY | 2018-11-05 01:36 | XMS REPORT ---
[...] End Status Dosage System Date Date Pravastatin [facility] 53066394470 20 MG Orally Active 1 tablet Sodium Once a day Results No Known Results Summary Purpose eClinicalWorks Submission
--- OUTSIDE RECORDS SUMMARY | 2018-11-05 01:36 | XMS REPORT ---
[...] Start End Status Dosage System Date Date [facility] 04173927608 81 MG Orally Active 1 tablet Once a day Metoprolol [facility] 33916935308 25 MG Orally Active 1 tablet Tartrate Twice a day with food Combigan [facility] 46084139530 0.2-0.5 % Active 1 drop into Ophthalmic affected Twice a day eye Pravastatin ND 71531372712 20 MG Orally Active 1 tablet Sodium Once a day Metoprolol ND 78305311297 25 MG Orally Active 1 tablet Tartrate Twice a day with food Pravastatin [facility] 34584420729 20 MG Orally Active 1 tablet Sodium Once a day Travatan Z ND 76671506015 0.004 % Active 1 drop into Ophthalmic Once affected a day eye in the evening Results No Known Results Immunizations Vaccine Administration Date FluAD Jan 06, 2018 Summary Purpose eClinicalWorks Submission
--- OUTSIDE RECORDS SUMMARY | 2018-11-05 01:36 | XMS REPORT ---
:1935 Author Organization eClinicalWorks Care Team Providers Name Role Phone Catalan, Gina Provider Role Unavailable Allergies, Adverse Reactions, Alerts Substance Reaction Event Type N.K.D.A. 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 Problem Systolic CHF I50.20 Active Problem Congestive heart failure, systolic, I50.20 Active left NYHA class 4 Problem Cataract H26.9 Active Problem Glaucoma H40.9 Active Assessment Hospital discharge follow-up Z09 Active Assessment HTN (hypertension) I10 Active Problem Benign essential HTN I10 Active Assessment Atypical chest pain R07.89 Active Problem Degenerative disc disease, cervical M50.30 [...] End Status Dosage System Date Date Pravastatin [facility] 39392884709 20 MG Orally Active 1 tablet Sodium Once a day Entresto [facility] 65581299390 49/51mg oral Active one 49/51mg bid Combigan [facility] 02087507630 0.2-0.5 % Active 1 drop into Ophthalmic affected eye Twice a day Indomethacin [facility] 31503122389 50 MG Orally Jan 20, Active 1 capsule TID 2017 PreserVision [facility] [address]-30 Active not defined AREDS Fiber Adult [facility] [address] Active not defined Gummies Travatan Z [facility] 93554574324 0.004 % Active 1 drop into Ophthalmic affected eye Once a day in the evening Clotrimazole-Be [facility] 41737464194 1-0.05 % Mar 06, Active 1 application tamethasone Externally 2018 to affected Twice a day area Metoprolol [facility] 09181221966 25 MG Orally Active 1 tablet with Tartrate Twice a day food Metoprolol [facility] 82882566433 25 MG Orally June Active 1 capsule Succinate Once a day 2018 Entresto [facility] 0 Active not defined 24/26mg Vitamin D-3 [facility] [address] Active not defined Aspir-81 [facility] 79947079603 81 MG Orally Active 1 tablet Once a day Results No Known Results Summary Purpose eClinicalWorks Submission
--- OUTSIDE RECORDS SUMMARY | 2018-11-05 01:37 | XMS REPORT ---
:1935 Author Organization eClinicalWorks Care Team Providers Name Role Phone Catalan, Na Provider Role Unavailable Allergies, Adverse Reactions, Alerts Substance Reaction Event Type N.K.D.A. Info Not Available Non Drug Allergy Problems Problem Type Condition Code Onset Dates Condition Status Assessment Internal hemorrhoids K64.8 Active Assessment Acquired thrombocytopenia D69.6 Active Assessment Gastroesophageal reflux disease K21.9 Active without esophagitis Assessment Diverticulosis K57.90 Active Assessment Mixed hyperlipidemia E78.2 Active Assessment Chronic systolic congestive heart I50.22 Active failure Assessment Atypical chest pain R07.89 Active Assessment HTN (hypertension) I10 Active Problem Cataract H26.9 Active Problem Degenerative disc disease, cervical M50.30 Active Problem Left sided colitis with rectal K51.511 Active bleeding Problem HTN (hypertension) I10 Active Problem Hyperlipidemia, mixed E78.2 Active Problem Cataract H26.9 Active Problem Glaucoma H40.9 Active Problem Wound check, abscess Z51.89 Active Problem Gastroesophageal reflux disease K21.9 Active without esophagitis Problem Spinal stenosis in cervical region M48.02 Active Problem Thrombocytopenia D69.6 Active Problem 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 Problem Glaucoma H40.9 Active Problem Diverticulosis K57.90 Active Problem Benign essential HTN I10 Active Problem Acquired thrombocytopenia D69.6 Active Problem Atypical chest pain R07.89 Active Problem Chronic systolic congestive heart I50.22 Active failure Problem Osteoarthritis, 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 Problem Mixed hyperlipidemia E78.2 Active Problem Left sided colitis with rectal K51.511 Active bleeding Problem Systolic CHF I50.20 Active Problem 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 Active Problem Congestive heart failure, systolic, I50.20 Active left NYHA class 4 Problem Degenerative cervical disc M50.30 Active Medications Medication Code Code Instructions Start End Status Dosage System Date Date Protonix [facility] 19751480940 40 MG Orally Active 1 tablet Once a day Clotrimazole-Beta ND 94623277331 1-0.05 % Mar 06, Active 1 application methasone Externally 2018 to affected Twice a day area Indomethacin ND 14242598523 50 MG Orally Oct 20, Active 1 capsule TID 2017 Entresto 24/26mg [facility] 48021067321 24/26mg oral Triny Active one bid 2018 Metoprolol [facility] 29054257014 25 MG Orally Active 1 capsule Succinate Once a day Amoxicillin [facility] 72145443220 500 MG Orally Active 2 tablets every 12 hrs PreserVision [facility] [address]-04 Active not defined AREDS Vitamin D-3 [facility] [address] Active not defined Travatan Z [facility] 97007683617 0.004 % Active 1 drop into Ophthalmic affected eye Once a day in the evening Aspir-81 [facility] 68501496016 81 MG Orally Active 1 tablet Once a day Combigan [facility] 49064198236 0.2-0.5 % Active 1 drop into Ophthalmic affected eye Twice a day Entresto 49/51mg [facility] 50589177927 49/51mg oral Active one bid Pravastatin [facility] 58183434675 20 MG Orally Active 1 tablet Sodium Once a day Clarithromycin [facility] 19655576097 500 MG Orally Active 1 tablet every 12 hrs Fiber Adult [facility] [address] Active not defined Gummies Results No Known Results Summary Purpose eClinicalWorks Submission
--- OUTSIDE RECORDS SUMMARY | 2018-11-05 01:37 | XMS REPORT ---
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 [...] H26.9 Active Problem HTN (hypertension) I10 Active Assessment Wound check, abscess Z51.89 Active Problem Mixed hyperlipidemia E78.2 Active Problem Glaucoma H40.9 Active Assessment Chronic systolic congestive heart I50.22 Active failure Problem Spinal stenosis in cervical region M48.02 Active Problem Thrombocytopenia D69.6 Active Medications Medication Code Code Instructions Start End Status Dosage System Date Date Indomethacin [facility] [place] 45209269681 50 MG Orally Jan 25, Active 1 capsule TID 2017 Travatan Z [facility] [place] 18526058927 0.004 % Active 1 drop into Ophthalmic affected eye Once a day in the evening Amoxicillin ND 13495326079 500 MG Orally Active 2 tablets every 12 hrs Entresto 24/26mg ND 19232698112 24/26mg oral July Active one bid 2018 Vitamin D-3 [facility] [place] [address] Active not defined Combigan [facility] [place] 99428271647 0.2-0.5 % Active 1 drop into Ophthalmic affected eye Twice a day Entresto 49/51mg [facility] [place] 66469512071 49/51mg oral Active one bid Clarithromycin [facility] [place] 48925550760 500 MG Orally Active 1 tablet every 12 hrs Protonix [facility] [place] 81088481350 40 MG Orally Active 1 tablet Once a day Metoprolol [facility] [place] 17177770781 25 MG Orally Active 1 capsule Succinate Once a day PreserVision [facility] [place] [address]-69 Active not defined AREDS Clotrimazole-Beta [facility] [place] 00533578210 1-0.05 % Mar 06, Active 1 application methasone Externally 2018 to affected Twice a day area Fiber Adult [facility] [place] [address] Active not defined Gummies Aspir-81 [facility] [place] 79325977808 81 MG Orally Active 1 tablet Once a day Results No Known Results Summary Purpose eClinicalWorks Submission
[2018-11-05] MEDS ORDERED: IPRATROPIUM BROM 0.5MG/2.5ML ONE (02:01)
[2018-11-05] MEDS ORDERED: ALBUTEROL 2.5 MG/3 ML NEB SOL ONE (02:01)
[2018-11-05 02:09] LABS: Absolute Lymphocytes (CBC) 3.4 K/uL (0.7-4.9); Basophils % 1.2 % (0-1.3); Hematocrit 47.4 % (39.6-49.0); MPV 12.2 fL (7.6-11.3); RBC Red Blood Cell Count 4.88 M/uL (4.33-5.43)
[2018-11-05 02:18] LABS: Protime INR 0.99
[2018-11-05 02:21] LABS: Albumin 4.1 g/dL (3.4-5.0); Bilirubin Direct 0.2 mg/dL (0-0.2); Bilirubin Total 0.4 mg/dL (0.2-1.0); CKMB Creatine Kinase MB 1.5 ng/mL (0.3-3.6); Magnesium 2.4 mg/dL (1.8-2.4); Potassium 3.8 mmol/L (3.5-5.1); Protein, Total 8.2 g/dL (6.4-8.2); Troponin (Emerg Dept Use Only) 0.04 ng/mL (0.0-0.045)
[2018-11-05 02:38] LABS: Arterial Blood Carboxyhemoglob 0.8 % (0-1.5); Blood Gas Oxyhemoglobin 91.6 % (94-97)
--- NOTE | 2018-11-05 02:57 | EDPHYS ---
Physician Documentation [facility] Name: Elvis Church Age: 83 yrs Sex: Male : 1935 Arrival Date: 11/05/2018 Time: 01:35 Bed 5 Private MD: ED Physician Mauricio Greco HPI: 11/05 02:53 This 83 yrs old Male presents to ER via EMS with complaints of SOB. tw4 04:12 The patient has shortness of breath at rest. Onset: The symptoms/episode began/occurred tw4 today. Duration: The symptoms are continuous, and are unchanged since they started. The patient's shortness of breath has no apparent modifying factors. Associated signs and symptoms: The patient has no apparent associated signs or symptoms. Severity of symptoms: At their worst the symptoms were in the emergency department the symptoms are unchanged. The patient has not experienced similar symptoms in the past. Historical: - Allergies: 01:42 No Known Allergies; tr5 - Home Meds: 01:42 aspirin 81 mg Oral chew 1 tab once daily [Active]; metoprolol tartrate 25 mg Oral tab tr5 once daily [Active]; pravastatin 20 mg Oral tab nightly [Active]; Entresto 24-26 mg Oral tab [Active]; travatan eye drop both eyes bid [Active]; - PMHx: 01:42 Glaucoma; High Cholesterol; Hypertension; Pacemaker; tr5 - Immunization history:: Adult Immunizations up to date. - Social history:: Smoking status: Patient/guardian denies using tobacco, never smoked. - Ebola Screening: : No symptoms or risks identified at this time. ROS: 04:12 Constitutional: Negative for fever, chills, and weight loss, Eyes: Negative for injury, tw4 pain, redness, and discharge, Cardiovascular: Negative for chest pain, palpitations, and edema, Abdomen/GI: Negative for abdominal pain, nausea, vomiting, diarrhea, and constipation, Back: Negative for injury and pain, MS/Extremity: Negative for injury and deformity, Skin: Negative for injury, rash, and discoloration. 04:12 Respiratory: Positive for cough, shortness of breath, Negative for dyspnea on exertion, hemoptysis, orthopnea, pleurisy. Exam: 04:12 Head/Face: Normocephalic, atraumatic. Chest/axilla: Normal chest wall appearance and tw4 motion. Nontender with no deformity. No lesions are appreciated. Cardiovascular: Regular rate and rhythm with a normal S1 and S2. No gallops, murmurs, or rubs. Normal PMI, no JVD. No pulse deficits. 04:12 Abdomen/GI: Soft, non-tender, with normal bowel sounds. No distension or tympany. No guarding or rebound. No evidence of tenderness throughout. Back: No spinal tenderness. No costovertebral tenderness. Full range of motion. MS/ Extremity: Pulses equal, no cyanosis. Neurovascular intact. Full, normal range of motion. Neuro: Awake and alert, GCS 15, oriented to person, place, time, and situation. Cranial nerves II-XII grossly intact. Motor strength 5/5 in all extremities. Sensory grossly intact. Cerebellar exam normal. Normal gait. 04:12 Constitutional: The patient appears in obvious distress, mildly distressed. 04:12 Respiratory: mild respiratory distress is noted, Respirations: accessory muscle usage, Breath sounds: rales, that are mild, are located in both bases, wheezing: that is moderate. Vital Signs: 01:42 BP 130 / 60; Pulse 100; Resp 20; Pulse Ox 100% on R/A; Weight 77.11 kg; Height 5 ft. 6 tr5 in. (167.64 cm); 03:14 BP 143 / 68; Pulse 94; Resp 16; Pulse Ox 99% on R/A; tr5 04:36 BP 135 / 88; Pulse 80; Pulse Ox 97% on R/A; tr5 05:27 BP 113 / 68; Pulse 81; Resp 16; Pulse Ox 97% on R/A; tr5 06:25 BP 99 / 46; Pulse 83; Resp 16; Pulse Ox 100% on R/A; tr5 07:40 BP 109 / 72; Pulse 76; Resp 18; Pulse Ox 98% ; sv 01:42 Body Mass Index 27.44 (77.11 kg, 167.64 cm) tr5 MDM: 02:46 Patient medically screened. tw4 04:12 Differential diagnosis: Anemia Anxiety Reaction pulmonary edema, Pulmonary Embolism tw4 reactive airway disease. Data reviewed: vital signs, nurses notes. Medication response: albuterol nebulizer treatment(s) markedly relieved the patient's wheezing. Response to treatment: and as a result, I will admit patient. Physician consultation: Sarah Infante MD regarding admission, and will see patient. 11/05 01:37 Order name: Blood Culture Adult (2) 11/05 01:37 Order name: BMP; Complete Time: 02:45 11/05 02:52 Interpretation: Normal except: CL 111; BUN 20; GLUC 122; GFR 70. 11/05 01:37 Order name: CBC with Diff 11/05 02:53 Interpretation: Normal except: PLT 142; EOSINOPHIL % 6.6; MPV 12.2. 11/05 01:37 Order name: Ckmb; Complete Time: 02:45 11/05 01:37 Order name: CPK; Complete Time: 02:45 11/05 01:37 Order name: D-Dimer 11/05 01:37 Order name: Hepatic Function; Complete Time: 02:45 11/05 02:53 Interpretation: Normal except: A/G 1.0; GLOB 4.1; AST 13. 11/05 01:37 Order name: Lipase; Complete Time: 02:45 11/05 01:37 Order name: Magnesium; Complete Time: 02:45 11/05 01:37 Order name: NT PRO-BNP; Complete Time: 02:45 11/05 02:53 Interpretation: Normal except: NT PRO-BNP 4875. 11/05 01:37 Order name: PT-INR 11/05 01:37 Order name: Ptt, Activated 11/05 01:37 Order name: Troponin (emerg Dept Use Only); Complete Time: 02:45 11/05 01:40 Order name: Blood Culture Adult (2) 11/05 01:37 Order name: XRAY CXR (1 view) 11/05 02:10 Order name: ABG; Complete Time: 02:45 11/05 02:53 Interpretation: Normal except: ABGPO2 67.0; SDRV5FG 91.6. 11/05 02:32 Order name: CBC Smear Scan [facility] 11/05 02:46 Order name: CT Chest For PE Angio tw4 11/05 03:54 Order name: NT PRO-BNP [facility] 11/05 03:54 Order name: CBC with Automated Diff [facility] 11/05 03:54 Order name: CBC with Automated Diff [facility] 11/05 03:54 Order name: Comprehensive Metabolic Panel [facility] 11/05 03:54 Order name: Comprehensive Metabolic Panel [facility] 11/05 03:54 Order name: Magnesium [facility] 11/05 03:54 Order name: Magnesium [facility] 11/05 03:54 Order name: Phosphorus [facility] 11/05 03:54 Order name: Phosphorus [facility] 11/05 03:54 Order name: Troponin I [facility] 11/05 03:54 Order name: Troponin I [facility] 11/05 03:54 Order name: Troponin I [facility] 11/05 01:37 Order name: EKG; Complete Time: 01:39 11/05 01:37 Order name: Cardiac monitoring; Complete Time: 01:46 11/05 01:37 Order name: EKG - Nurse/Tech; Complete Time: 01:46 11/05 01:37 Order name: IV Saline Lock; Complete Time: 01:45 11/05 01:37 Order name: Labs collected and sent; Complete Time: 01:45 11/05 01:37 Order name: O2 Per Protocol; Complete Time: 01:45 11/05 01:37 Order name: O2 Sat Monitoring; Complete Time: 01:45 11/05 03:54 Order name: CONS Physician Consult [facility] 11/05 03:54 Order name: Heart Healthy [facility] 11/05 03:54 Order name: Echo with Doppler [facility] EC:26 Rhythm is regular with Ventricular paced. QRS [place] is Normal. MT interval is normal. tw4 QRS interval is normal. QT interval is normal. No Q waves. T waves are Normal. No ST changes noted. Clinical impression: Abnormal EKG without significant change. Interpreted by me. Reviewed by me. Administered Medications: 01:46 Drug: DuoNeb (3:1) (2.5 mg - 0.5 mg) 3 ml Route: Nebulizer; tr5 03:35 Drug: Lasix 40 mg Route: IVP; Site: right antecubital; tr5 04:46 Follow up: Response: No adverse reaction tr5 03:35 Drug: SOLU-Medrol 125 mg Route: IVP; Site: right antecubital; tr5 04:46 Follow up: Response: No adverse reaction tr5 Disposition: 11/05/18 02:56 Hospitalization ordered by Sarah Infante for Inpatient Admission. Preliminary diagnosis are Chronic obstructive pulmonary disease, unspecified, Unspecified diastolic (congestive) heart failure, Hypoxemia. - Bed requested for Telemetry/MedSurg (Inpatient). - Status is Inpatient Admission. sv - Condition is Stable. - Problem is new. - Symptoms have improved. UTI on Admission? No Signatures: Dispatcher [employer] EDEliz Morales RN RN Tiffany Nelson RN RN Mauricio Greco MD MD tw4 Mahesh Mane RN RN tr5 Corrections: (The following items were deleted from the chart) 06:16 02:56 Hospitalization Ordered by Sarah Infante MD for Inpatient Admission. Preliminary cg diagnosis is Chronic obstructive pulmonary disease, unspecified; Unspecified diastolic (congestive) heart failure; Hypoxemia. Bed requested for Telemetry/MedSurg (Inpatient). Status is Inpatient Admission. Condition is Stable. Problem is new. Symptoms have improved. UTI on Admission? No. tw4 07:59 06:16 11/05/2018 02:56 Hospitalization Ordered by Sarah Infante MD for Inpatient sv Admission. Preliminary diagnosis is Chronic obstructive pulmonary disease, unspecified; Unspecified diastolic (congestive) heart failure; Hypoxemia. Bed requested for Telemetry/MedSurg (Inpatient). Status is Inpatient Admission. Condition is Stable. Problem is new. Symptoms have improved. UTI on Admission? No. cg
--- NOTE | 2018-11-05 02:57 | ER ---
Nurse's Notes [facility] Name: Elvis Church Age: 83 yrs Sex: Male : 1935 Arrival Date: 11/05/2018 Time: 01:35 Bed 5 Private MD: Diagnosis: Chronic obstructive pulmonary disease, unspecified;Unspecified diastolic (congestive) heart failure;Hypoxemia Presentation: 11/05 01:39 Presenting complaint: EMS states: Pt started experiencing shortness of breath and tr5 difficulty breathing about an hour ago. This happened once before about 3 months ago. Transition of care: patient was not received from another setting of care. Onset of symptoms was November 05, 2018. Risk Assessment: Do you want to hurt yourself or someone else? Patient reports no desire to harm self or others. Initial Sepsis Screen: Does the patient meet any 2 criteria? No. Patient's initial sepsis screen is negative. Does the patient have a suspected source of infection? No. Patient's initial sepsis screen is negative. Care prior to arrival: Medication(s) given: Oxygen administered. via nasal cannula. 01:39 Method Of Arrival: EMS: [facility] tr5 01:39 Acuity: AMRIT 3 tr5 Triage Assessment: 01:42 General: Appears uncomfortable, Behavior is calm, cooperative, appropriate for age. tr5 Pain: Denies pain. EENT: No signs and/or symptoms were reported regarding the EENT system. Neuro: Level of Consciousness is awake, alert, obeys commands, Oriented to person, place, time, situation, Foundation Relations Manager are equal bilaterally Moves all extremities. Cardiovascular: Heart tones S4 Bruits absent Capillary refill < 3 seconds Pulses are all present. Edema is absent. Respiratory: Reports shortness of breath at rest Airway is patent Trachea midline Respiratory effort is labored, Respiratory pattern is symmetrical, agonal Breath sounds with crackles bilaterally. Breath sounds with wheezes. GI: : No signs and/or symptoms were reported regarding the genitourinary system. Derm: No signs and/or symptoms reported regarding the dermatologic system. Skin is intact, Skin is dry, Skin is pink, warm \T\ dry. Musculoskeletal: Capillary refill < 3 seconds, Range of motion: intact in all extremities. Historical: - Allergies: 01:42 No Known Allergies; tr5 - Home Meds: 01:42 aspirin 81 mg Oral chew 1 tab once daily [Active]; metoprolol tartrate 25 mg Oral tab tr5 once daily [Active]; pravastatin 20 mg Oral tab nightly [Active]; Entresto 24-26 mg Oral tab [Active]; travatan eye drop both eyes bid [Active]; - PMHx: 01:42 Glaucoma; High Cholesterol; Hypertension; Pacemaker; tr5 - Immunization history:: Adult Immunizations up to date. - Social history:: Smoking status: Patient/guardian denies using tobacco, never smoked. - Ebola Screening: : No symptoms or risks identified at this time. Screenin:14 Abuse screen: Denies threats or abuse. Nutritional screening: No deficits noted. tr5 Tuberculosis screening: No symptoms or risk factors identified. Fall Risk None identified. Total Roman Fall Scale indicates No Risk (0-24 pts). Assessment: 03:10 General: Appears in no apparent distress. Behavior is calm, cooperative. Pain: Denies tr5 pain. Neuro: Level of Consciousness is awake, alert, obeys commands, Oriented to person, place, time. Cardiovascular: Reports shortness of breath, Heart tones present Bruits absent Capillary refill < 3 seconds Pulses are all present. Edema is absent. Respiratory: Airway is patent Trachea midline Respiratory effort is even, unlabored, Respiratory pattern is regular, symmetrical, Breath sounds are clear bilaterally. GI: Abdomen is round Bowel sounds present X 4 quads. : No signs and/or symptoms were reported regarding the genitourinary system. EENT: No signs and/or symptoms were reported regarding the EENT system. Derm: Skin is intact, is healthy with good turgor, Skin is dry, Skin is pink, warm \T\ dry. Skin temperature is warm. Musculoskeletal: Capillary refill < 3 seconds, Range of motion: intact in all extremities. 04:36 Reassessment: Patient appears in no apparent distress at this time. Patient and/or tr5 family updated on plan of care and expected duration. Pain level reassessed. Patient is alert, oriented x 3, equal unlabored respirations, skin warm/dry/pink. 05:27 Reassessment: Patient appears in no apparent distress at this time. No changes from tr5 previously documented assessment. Patient is alert, oriented x 3, equal unlabored respirations, skin warm/dry/pink. Patient states feeling better. 06:25 Reassessment: Patient appears in no apparent distress at this time. Patient and/or tr5 family updated on plan of care and expected duration. Pain level reassessed. Vital Signs: 01:42 BP 130 / 60; Pulse 100; Resp 20; Pulse Ox 100% on R/A; Weight 77.11 kg; Height 5 ft. 6 tr5 in. (167.64 cm); 03:14 BP 143 / 68; Pulse 94; Resp 16; Pulse Ox 99% on R/A; tr5 04:36 BP 135 / 88; Pulse 80; Pulse Ox 97% on R/A; tr5 05:27 BP 113 / 68; Pulse 81; Resp 16; Pulse Ox 97% on R/A; tr5 06:25 BP 99 / 46; Pulse 83; Resp 16; Pulse Ox 100% on R/A; tr5 07:40 BP 109 / 72; Pulse 76; Resp 18; Pulse Ox 98% ; sv 01:42 Body Mass Index 27.44 (77.11 kg, 167.64 cm) tr5 ED Course: 01:35 Patient arrived in ED. tw4 01:38 Mauricio Greco MD is Attending Physician. tw4 01:38 Mahesh Mane, RN is Primary Nurse. tr5 01:41 Triage completed. tr5 01:42 Arm band placed on. tr5 01:42 Patient has correct armband on for positive identification. Fall risk band placed. tr5 Placed in gown. Bed in low position. 01:42 No provider procedures requiring assistance completed. tr5 01:50 Initial lab(s) drawn, by me, sent to lab. First set of blood cultures drawn by me. aa1 Inserted saline lock: 20 gauge in right forearm, using aseptic technique. Blood collected. 01:51 X-ray completed. Portable x-ray completed in exam room. Patient tolerated procedure kw well. 02:48 Second set of blood cultures drawn by me. lt1 02:55 Sarah Infante MD is Hospitalizing Provider. tw4 03:00 EKG done, by ED staff. tr5 03:47 CT completed. Patient tolerated procedure well. Patient moved to CT via stretcher. Patient moved back from CT. 05:27 Repeat lab(s) drawn. by me, sent to lab. aa1 05:53 Notified ED physician of a critical lab result(s). Troponin 0.93. tr5 07:43 Patient admitted, IV remains in place. intact. sv Administered Medications: 01:46 Drug: DuoNeb (3:1) (2.5 mg - 0.5 mg) 3 ml Route: Nebulizer; tr5 03:35 Drug: Lasix 40 mg Route: IVP; Site: right antecubital; tr5 04:46 Follow up: Response: No adverse reaction tr5 03:35 Drug: SOLU-Medrol 125 mg Route: IVP; Site: right antecubital; tr5 04:46 Follow up: Response: No adverse reaction tr5 Outcome: 02:56 Decision to Hospitalize by Provider. tw4 07:42 Admitted to Tele accompanied by tech, via wheelchair, room 423, with chart, Report sv called to Apoorva BARRETT 07:42 Condition: stable 07:42 Instructed on the need for admit. 07:59 Patient left the ED. sv Signatures: Eliz Lopez RN Romana Oseguera RN RN aa1 Francisco J Broussard Kimberlee kw Wadley, Terrence, MD MD tw4 Emma Christianson Mahesh Londono RN RN tr5 Corrections: (The following items were deleted from the chart) 03:36 01:40 General: tr5 tr5
[2018-11-05] MEDS ORDERED: FUROSEMIDE 40 MG/4 ML VIAL ONE (03:29)
[2018-11-05] MEDS ORDERED: METHYLPREDNISOLONE 125 MG INJ ONE (03:29)
[2018-11-05 03:47] LABS: Blood Morphology Comment NOT SEEN (NOT SEEN); Platelet Estimate ADEQ; Urine White Blood Cell Casts OK
[2018-11-05] MEDS ORDERED: ACETAMINOPHEN 500 MG TAB PO PRN (03:48)
[2018-11-05] MEDS ORDERED: ONDANSETRON 4 MG/2 ML VIAL IV PRN (03:48)
[2018-11-05] MEDS ORDERED: POTASSIUM CL 40 MEQ in NA CHLORIDE 0.9% 500 ML IV SCH (04:00)
[2018-11-05 05:52] LABS: Troponin I 0.93 ng/mL (0.0-0.045)
--- NOTE | 2018-11-05 07:19 | P.HP ---
Certification for Inpatient Patient admitted to: Inpatient With expected LOS: >2 Midnights Patient will require the following post-hospital care: None Practitioner: I am a practitioner with admitting privileges, knowledge of patient current condition, hospital course, and medical plan of care. Services: Services provided to patient in accordance with Admission requirements found in Title 42 Section 412.3 of the Code of Federal Regulations Patient History Date of Service: 11/05/18 Reason for admission: Respiratory distress History of Present Illness: Patient is an 83yo who was admitted to the hospital respiratory distress. Patient has a history of arrhythmia and he had a.m. pacemaker defibrillator placed for the arrhythmia. Patient denies any history of congestive heart failure although he has a reported in the chart that says his ejection fraction is 20-25%.. In the emergency room patient's workup revealed a fullness in the hilum region bilaterally suggestive of pulmonary edema. Patient has a CT scan which revealed pulmonary hypertension. Decision was made to admit the patient to the hospital for treatment of congestive heart failure. Will get an echocardiogram to assess whether this is systolic or diastolic dysfunction. Otherwise, patient has stated that he has made about 2 L of urine. He is feeling much better. Clinically he appears to be doing well with no distress. He will be admitted for inpatient hospitalization working up his respiratory distress-he may have pulmonary arterial hypertension per CT findings which will worsen his cardiomyopathy. Cardiology consultation as well. Allergies No Known Allergies Allergy (Verified 06/04/18 03:34) Home Medications: Metoprolol Tartrate [Lopressor*] 25 mg PO DAILY 04/05/15 Pravastatin Sodium [Pravachol] 20 mg PO BEDTIME 04/05/15 Travoprost (Benzalkonium) [Travatan 0.004% Eye Drop] 1 drop RIGHT EYE BEDTIME Aspirin [Aspirin EC 81 MG] 81 mg PO DAILY 05/25/17 Sacubitril/Valsartan [Entresto 24 mg-26 mg Tablet] 1 each PO DAILY 05/25/17 - Past Medical/Surgical History Diabetic: No -: Glaucome, High Cholesterol -: Hypertension -: Congestive heart failure-systolic dysfunction(EF=equals 20-25%) -: Pacemaker/defibrillator -: Cardiac catheterization - Family History Father Medical History: Heart disease - Social History Alcohol use: No CD- Drugs: No Caffeine use: No Review of Systems 10-point ROS is otherwise unremarkable Physical Examination - Vital Signs Temperature: 99 F Blood Pressure: 150/90 Pulse: 88 Respirations: 18 Pulse Ox (%): 96 - Physical Exam General: Alert, In no apparent distress, Oriented x3 HEENT: Atraumatic, Normocephalic Neck: Supple, 2+ carotid pulse no bruit, JVD not distended Respiratory: Crackles/rales Cardiovascular: Normal S1 S2, Irregular heart rate/rhythm, Systolic murmur Gastrointestinal: Normal bowel sounds, Soft and benign, Non-distended Musculoskeletal: No clubbing, No swelling, No contractures Integumentary: No rashes Neurological: Normal strength at 5/5 x4 extr, Sensation intact, Cranial nerves 3 -12 intact Lymphatics: No axilla or inguinal lymphadenopathy - Studies Laboratory Data (last 24 hrs) 11/05/18 01:49: PT 11.7, INR 0.99, APTT 32.0 11/05/18 01:49: WBC 10.7, Hgb 16.1, Hct 47.4, Plt Count 142 L 11/05/18 01:49: Sodium 144, Potassium 3.8, BUN 20 H, Creatinine 1.01, Glucose 122 H, Magnesium 2.4, Total Bilirubin 0.4, AST 13 L, ALT 17, Alkaline Phosphatase 48, Lipase 93 Assessment & Plan - Problems (Diagnosis) (1) Pulmonary hypertension Current Visit: Yes Status: Acute (2) Acute exacerbation of congestive heart failure Current Visit: No Status: Acute Qualifiers: Heart failure type: systolic Qualified Code(s): I50.23 - Acute on chronic systolic (congestive) heart failure (3) Frequent PVCs Onset Date: 04/06/15 Current Visit: No Status: Acute (4) Presence of combination internal cardiac defibrillator (ICD) and pacemaker Current Visit: No Status: Acute - Plan 1. Echocardiogram to evaluate pulmonary arterial hypertension 2. Continue Entresto 3. Continue Beta jen 4. Cardiology consultation 5. Aggressive diuresis 6. Strict I's and O's 7. Repeat CXR 8. Daily weights 9. Education regarding diet and treatment of congestive heart failure Discharge Plan: Home Plan to discharge in: Greater than 2 days - Advance Directives Does patient have a Living Will: No Does patient have a Durable POA for Healthcare: Yes - Code Status/Comfort Care Code Status Assessed: Yes Code Status: Full Code Critical Care: No Time Spent Managing PTS Care (In Minutes): 45
--- NOTE | 2018-11-05 08:14 | RAD REPORT ---
EXAM DESCRIPTION: Yenni Single View11/05/2018 3:56 am CLINICAL HISTORY: Shortness of breath COMPARISON: May 2018 FINDINGS: Mild bilateral pulmonary opacities. The heart is moderately enlarged. Pacemaker leads are in place. IMPRESSION: Mild CHF
[2018-11-05] MEDS: FUROSEMIDE 40 MG/4 ML VIAL IV SCH ×2 (08:30→17:08)
[2018-11-05] MEDS: ENOXAPARIN 80 MG/0.8 ML SQ SCH ×2 (08:31→22:16)
[2018-11-05] MEDS: METOPROLOL TAR 50 MG TAB PO SCH ×2 (08:31→21:00)
[2018-11-05] MEDS ORDERED: ENOXAPARIN 40 MG/0.4 ML SQ SCH (09:00)
[2018-11-05] MEDS ORDERED: ASPIRIN EC 81 MG TAB PO SCH (09:00)
[2018-11-05] MEDS ORDERED: LISINOPRIL 10 MG TAB PO SCH (09:00)
[2018-11-05 10:37] LABS: Urine Appearance CLEAR; Urine Bilirubin NEGATIVE (NEG); Urine Blood NEGATIVE (NEG); Urine Color YELLOW; Urine Glucose TRACE (NEG); Urine Protein NEGATIVE (NEG); Urine Urobilinogen 0.2 mg/dL (0.2-1.0)
--- NOTE | 2018-11-05 10:38 | RAD REPORT ---
EXAM DESCRIPTION: CT - Chest For Pe Angio - 11/05/2018 4:35 am CLINICAL HISTORY: The patient is 83 years old and is Male; SOB TECHNIQUE: Axial computed tomographic angiography images of the chest with intravenous contrast usin g pulmonary embolism protocol. Sagittal and coronal reformatted images were created and reviewed. This CT exam was performed using one or more of the following dose reduction techniques: automated exposure control, adjustment of the mA and/or kV according to patient size, and/or use of iterative reconstruction technique. MIP reconstructed images were created and reviewed. COMPARISON: No relevant prior studies available. FINDINGS: ARTIFACTS: The exam is suboptimal secondary to motion artifact. PULMONARY ARTERIES: The main pulmonary arteries and proximal segmental branches opacify normally and are without filling defect. AORTA: No acute findings. No thoracic aortic aneurysm. LUNGS: Mild diffuse septal thickening with subtle scattered groundglass opacities throughout the lungs is noted. PLEURAL SPACE: A small right pleural effusion is present. A trace left pleural effusion is pre sent. No pneumothorax. HEART: The heart is significantly enlarged. No significant pericardial effusion. No evidence of RV dysfunction. BONES/JOINTS: Multilevel degenerative change of the spine is present. No acute fracture. No dislocation. SOFT TISSUES: Unremarkable. LYMPH NODES: Unremarkable. No enlarged lymph nodes. TUBES, LINES AND DEVICES: A triple lead left-sided pacemaker is present IMPRESSION: 1. The main pulmonary arteries and proximal segmental branches opacify normally and ar e without filling defect. However, the remainder of the pulmonary vasculature is not as well evalua petros secondary to motion artifact. 2. Findings suggestive of mild interstitial edema with trace pleural effusions. Electronically signed by: Page Ryder MD 11/05/2018 4:18 AM CDT Due to temporary technical issues with the PACS/Fluency reporting system, reports are being signed by the in house radiologist as a courtesy to ensure prompt reporting. The interpreting radiologist is f ully responsible for the content of the report.
[2018-11-05 10:44] LABS: Urine Bacteria NONE SEEN /HPF (NONE SEEN); Urine Culture Reflex Order NOT NEEDED; Urine RBC <5 /HPF (NONE SEEN)
--- NOTE | 2018-11-05 10:47 | EKG ---
Test Date: 2018-11-05 Test Time: 05:30:13 Stock Handler: TR MEASUREMENT RESULTS: Intervals: Rate: 80 IA: 170 QRSD: 194 QT: 474 QTc: 546 [place]: P: 22 IA: 170 QRS: 248 T: 86 INTERPRETIVE STATEMENTS: Atrial-sensed ventricular-paced rhythm tracking sinus rhythm with premature ventricular complexes Compared to ECG 06/03/2018 20:29:27 no significant change from previous ECG Electronically Signed On 11-05-18 10:46:45 CDT by Jeffy Lopez
--- NOTE | 2018-11-05 11:17 | ECHO ---
HEIGHT: 5 ft 6 in WEIGHT: 166 lb 9.6 oz DATE OF STUDY: 11/05/[address]: Sarah Infante MD 2-DIMENSIONAL: YES M.MODE: YES DOPPLER: YES COLOR FLOW: YES TDS: NO PORTABLE: NO DEFINITY: NO BUBBLE STUDY: NO DIAGNOSIS: CONGESTIVE HEART FAILURE CARDIAC HISTORY: CATHERIZATION: NO SURGERY: NO PROSTHETIC VALVE: NO PACEMAKER: YES MEASUREMENTS (cm) DIASTOLIC (NORMALS) SYSTOLIC (NORMALS) IVSd 1.0 (0.6-1.2) LA Diam 3.7 (1.9-4.0) LVEF 39% LVIDd 6.4 (3.5-5.7) LVIDs 5.1 (2.0-3.5) %FS 19% LVPWd 1.0 (0.6-1.2) Ao Diam 3.1. (2.0-3.7) 2 DIMENSIONAL ASSESSMENT: RIGHT ATRIUM: NORMAL LEFT ATRIUM: DILATED RIGHT VENTRICLE: PACEMAKER IN RIGHT VENTRICLE LEFT VENTRICLE: DILATED TRICUSPID VALVE: NORMAL MITRAL VALVE: NORMAL PULMONIC VALVE: NORMAL AORTIC VALVE: MILD SCLEROSIS PERICARDIAL EFFUSION: NONE AORTIC ROOT: NORMAL LEFT VENTRICULAR WALL MOTION: GLOBAL HYPOKINESIS. DOPPLER/COLOR FLOW: MILD AORTIC REGURGITATION, MITRAL REGURGITATION, AND TRICUSPID REGURGITATION. ESTIMATED RIGHT VENTRICULAR SYSTOLIC PRESSURE 30 MMHG ( NORMAL). COMMENTS: DEPRESSED LEFT VENTRICULAR EJECTION FRAACTION. DILATED LEFT ATRIUM AND LEFT VENTRICLE. PACEMAKER CATHETER IN RIGHT VENTRICLE. AORTIC SCLEROSIS WITH NO AORTIC STENOSIS. MILD AORTIC REGRUGITATION, MITRAL REGURGITATION, AND TRICUSPID REGURGITATION. TECHNOLOGIST: IVONNE MILLARD [facility]
--- NOTE | 2018-11-05 13:54 | CON ---
Identifying Data: An 83-year-old man. Chief Complaint: Dyspnea. Reason For Hospitalization: Congestive heart failure exacerbation. History Of Present Illness: Mr. Church is a gentleman, who has a nonischemic cardiomyopathy. Card iac cath showed no coronary heart disease, EF in the 20s with medical therapy and with a biventricula r pacing defibrillator. His ejection fraction is now in the 30s. He has a very poor understanding o f sodium restriction. He and his have gone through the lecture before, been taught before about daily weights, and told him that is when the weight goes up. Patient seems to think his symptoms oc curred all of a sudden, but most likely he has had a slow weight gain mild symptoms and when he final ly noticed when he came to the hospital, he was found to be in pulmonary edema. He has now had a lot of diuresis, feels much better. He was not having chest pain. He was having orthopnea, swelling, a nd dyspnea on exertion. Medications: Outpatient medications have been pravastatin, metoprolol, aspirin, and Entresto. His d efibrillator checks are up to date. Physical Examination: Vital Signs: 5 feet 6 inches. 169 pounds. HEENT: Normal. Lungs: Totally clear. There are a few sparse basilar crackles. Heart: S4 gallop. No significant murmur. Abdomen: Soft. Extremities: Mild edema. Impression: Patient needs to receive some more Lasix. He should continue with Entresto. Lisinopril absolutely needs to be stopped, it should never be given to somebody who is on Entresto. Need to re sume Entresto and beta-jen and give him a regular dose of Lasix to take as an outpatient and teach him again about sodium restriction. JONAS/MODL Voice ID: [id number] Report ID: [id number]
[2018-11-05] MEDS ORDERED: HOME MED 1 EA UNK (Pravastatin Sodium [Pravachol] 20 MG) PO SCH (21:00)
[2018-11-05] MEDS: ATORVASTATIN 10 MG TAB PO SCH (22:16)
[2018-11-06 05:32] VITALS: BMI 27.0
[2018-11-06 06:30] LABS: Basophils % 0.1 % (0-1.3); Lymphocytes % 4.5 % (15.3-44.8); RBC Red Blood Cell Count 3.95 M/uL (4.33-5.43)
[2018-11-06 06:50] LABS: Albumin 3.4 g/dL (3.4-5.0); Bilirubin Total 0.6 mg/dL (0.2-1.0); Phosphorus 3.1 mg/dL (2.5-4.9); Potassium 4.2 mmol/L (3.5-5.1); Protein, Total 6.6 g/dL (6.4-8.2)
[2018-11-06 09:29] LABS: Blood Morphology Comment NOT SEEN (NOT SEEN); Platelet Estimate ADEQ; Toxic Granulation 2+
[2018-11-06] MEDS: METOPROLOL TAR 50 MG TAB PO SCH ×2 (10:39→21:14)
[2018-11-06] MEDS: ENOXAPARIN 80 MG/0.8 ML SQ SCH ×2 (10:39→21:13)
[2018-11-06] MEDS: ASPIRIN EC 81 MG TAB PO SCH (10:39)
[2018-11-06] MEDS: SACUBITRIL/VALSARTAN 24/26 MG TAB PO SCH (10:45)
[2018-11-06] MEDS: FUROSEMIDE 40 MG/4 ML VIAL IV SCH ×2 (10:46→18:32)
--- NOTE | 2018-11-06 12:21 | PN ---
Date of Progress Note: 11/06/2018 Mr. Serrano was seen by Dr. Lopez yesterday for congestive heart failure. I am seeing him today on for congestive heart failure. He is now on beta blockers, Lasix and Entresto. Echocardiogr am showed an ejection fraction of 39%, also presence of a pacemaker. Today, he denies any shortness of breath, PND, orthopnea, pedal edema. He has no rales. On physical examination, he is in a paced rhythm, very comfortable. I will send him home on beta blockers, Lasix and Entresto and definitely n o lisinopril. We will see him in the office soon. JEROME/OLGA Voice ID: [id number] Report ID: [id number]
[2018-11-06 12:24] LABS: Absolute Lymphocytes (CBC) 1.6 K/uL (0.7-4.9); Basophils % 0.1 % (0-1.3); Hematocrit 41.3 % (39.6-49.0); RBC Red Blood Cell Count 4.28 M/uL (4.33-5.43)
--- NOTE | 2018-11-06 15:13 | RAD REPORT ---
EXAM DESCRIPTION: CT - CT CHEST,ABD,PELVIS W/O - 11/06/2018 1:17 pm CLINICAL HISTORY: Fever of unknown origin, elevated white blood cell count COMPARISON: CT chest November 05 TECHNIQUE: Axial 5 millimeter thick images of the chest abdomen and pelvis were obtained without ora l or IV contrast. The CT scan was performed using dose optimization techniques as appropriate to a performed exam incl uding one or more of the following: Automated exposure control, adjustment of the mA and/or kV accord ing to patient size (this includes techniques or standardized protocols for targeted exams where dose is matched to indication/reason for exam) and use of iterative reconstruction technique. FINDINGS: No pneumonia or other acute lung parenchymal process. No mediastinal or hilar mass or lymp hadenopathy seen. There is no pericardial thickening or effusion. No pleural effusion. No chest wall mass or abnormal axillary lymphadenopathy. The liver, spleen, pancreas, adrenal glands and kidneys show no suspicious findings. Isodense masses and pyelonephritis are not excluded on a noncontrast study. Several punctate gallstones are seen layering near the neck of the gallbladder. No wall thickening, e tylor or other finding to suspect an active gallbladder process. No biliary tree dilatation. No dilated bowel loops or bowel wall thickening. No finding to suspect an acute or occult GI process. Diverticulosis is minimal. No urinary bladder wall thickening or edema. Enlarged prostate gland is present without periprostate stranding or edema. No free air, free fluid or inflammatory stranding. No mass or bulky lymphadenopathy. Fat only left in guinal hernia is present. There is minimal stranding and air in the subcutaneous fat from medication injections. Degenerative changes are present but there are no findings to suspect discitis or osteomyelitis. IMPRESSION: CT chest, abdomen and pelvis imaging was performed but shows no abnormality that would e xplain elevated white count or fever of unknown origin. Full findings are detailed in the body of the report.
--- NOTE | 2018-11-06 16:11 | P.PN ---
Subjective Date of Service: 11/06/18 Chief Complaint: Respiratory distress Patient seen and examined at bedside with RN. Chart reviewed. Case discussed with cardiology. No complaints to offer overnight. Does have elevated white count this morning. Review of Systems 10-point ROS is otherwise unremarkable Physical Examination - Vital Signs Temperature: 98 F Blood Pressure: 109/57 Pulse: 77 Respirations: 18 Pulse Ox (%): 96 - Physical Exam General: Alert, In no apparent distress HEENT: Atraumatic, PERRLA, EOMI Neck: Supple, JVD not distended Respiratory: Clear to auscultation bilaterally, Normal air movement Cardiovascular: Regular rate/rhythm, Normal S1 S2 Gastrointestinal: Normal bowel sounds, No tenderness Musculoskeletal: No tenderness Integumentary: No rashes Neurological: Normal speech, Normal tone, Normal affect Lymphatics: No axilla or inguinal lymphadenopathy - Studies Medications List Reviewed: Yes Assessment And Plan - Current Problems (Diagnosis) (1) Acute exacerbation of congestive heart failure Current Visit: No Status: Acute Plan: CHF exacerbation most likely secondary to noncompliance with medication -currently on IV Lasix beta-jen and Entresto -fluid restriction and low sodium diet here in the hospital Qualifiers: Heart failure type: systolic Qualified Code(s): I50.23 - Acute on chronic systolic (congestive) heart failure (2) Elevated WBC count Current Visit: Yes Status: Acute Plan: Elevated white count most likely secondary to reactive leukocytosis -abdominal CT abdomen and pelvis negative for any acute abnormality cultures are negative thus far -will monitor for next 24-48 hr to ensure that the patient's white count is trending down and will discharge after Qualifiers: Leukocytosis type: lymphocytosis Qualified Code(s): D72.820 - Lymphocytosis (symptomatic) (3) Presence of combination internal cardiac defibrillator (ICD) and pacemaker Current Visit: No Status: Chronic - Plan Pending clinical improvement at this time Discharge Plan: Home Plan to discharge in: Greater than 2 days - Code Status/Comfort Care Code Status Assessed: Yes Critical Care: No
[2018-11-06] MEDS: ATORVASTATIN 10 MG TAB PO SCH (21:13)
[2018-11-07 04:21] VITALS: O2SAT 97
[2018-11-07 09:04] LABS: Absolute Lymphocytes (CBC) 2.7 K/uL (0.7-4.9); Basophils % 0.6 % (0-1.3); Hematocrit 47.3 % (39.6-49.0); MPV 12.3 fL (7.6-11.3); RBC Red Blood Cell Count 4.87 M/uL (4.33-5.43)
[2018-11-07] MEDS: SACUBITRIL/VALSARTAN 24/26 MG TAB PO SCH (09:33)
[2018-11-07] MEDS: METOPROLOL TAR 50 MG TAB PO SCH (09:33)
[2018-11-07] MEDS: ASPIRIN EC 81 MG TAB PO SCH (09:33)
[2018-11-07] MEDS: FUROSEMIDE 40 MG/4 ML VIAL IV SCH (09:35)
[2018-11-07] MEDS: ENOXAPARIN 80 MG/0.8 ML SQ SCH (09:35)
[2018-11-07 09:45] LABS: Platelet Estimate DECR; Urine White Blood Cell Casts OK
[2018-11-07 09:46] LABS: Blood Morphology Comment NOT SEEN (NOT SEEN); Platelets, Giant FEW
[2018-11-07 11:39] VITALS: BP 97/52
[2018-11-07 11:46] VITALS: TEMP 96.4
--- NOTE | 2018-11-07 17:14 | P.DS ---
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 Patient has a history of arrhythmia and he had a.m. pacemaker defibrillator placed for the arrhythmia. Patient denies any history of congestive heart failure although he has a reported in the chart that says his ejection fraction is 20-25%.. In the emergency room patient's workup revealed a fullness in the hilum region bilaterally suggestive of pulmonary edema. Patient has a CT scan which revealed pulmonary hypertension. Decision was made to admit the patient to the hospital for treatment of congestive heart failure. Will get an echocardiogram to assess whether this is systolic or diastolic dysfunction. Otherwise, patient has stated that he has made about 2 L of urine. He is feeling much better. Clinically he appears to be doing well with no distress. He will be admitted for inpatient hospitalization working up his respiratory distress-he may have pulmonary arterial hypertension per CT findings which will worsen his cardiomyopathy. Cardiology consultation as well. Hospital Course: Overall during the hospital stay patient remained stable Patient was initially admitted to the hospital for acute CHF exacerbation. Was started on IV Lasix here in the hospital. Had marked improvement in his symptoms. Cardiology was consulted. Who recommended the patient be switched over to p.o. Lasix and can be discharged once he is adequately diuresed here in the hospital. Patient was adequately diuresed here in the hospital and thus was discharged home under stable condition. While here in the hospital patient also had leukocytosis had had CT chest, abdomen and pelvis done here in the hospital which was all negative for any acute infection. Blood culture urine culture and chest x-ray remained without any acute infection as well. Patient' s repeat WBC did trend down and thus patient was discharged home under stable condition. Patient was asked to continue taking his beta-jen Lasix and entresto at home. Vital Signs/Physical Exam: Temp Pulse Resp BP Pulse Ox 96.4 F L 69 18 97/52 L 95 11/07/18 11:46 11/07/18 11:38 11/07/18 11:38 11/07/18 11:38 11/07/18 11:38 General: Alert, In no apparent distress HEENT: Atraumatic, PERRLA, EOMI Neck: Supple, JVD not distended Respiratory: Clear to auscultation bilaterally, Normal air movement Cardiovascular: Regular rate/rhythm, Normal S1 S2 Gastrointestinal: Normal bowel sounds, No tenderness Musculoskeletal: No tenderness Integumentary: No rashes Neurological: Normal speech, Normal tone, Normal affect Lymphatics: No axilla or inguinal lymphadenopathy Laboratory Data at Discharge: WBC 12.3 K/uL (4.3-10.9) H D 11/07/18 08:35 Hgb 15.8 g/dL (13.6-17.9) 11/07/18 08:35 Hct 47.3 % (39.6-49.0) 11/07/18 08:35 Plt Count 128 K/uL (152-406) L 11/07/18 08:35 PT 11.7 SECONDS (9.5-12.5) 11/05/18 01:49 INR 0.99 11/05/18 01:49 APTT 32.0 SECONDS (24.3-36.9) 11/05/18 01:49 Sodium 141 mmol/L (136-145) 11/06/18 06:04 Potassium 4.2 mmol/L (3.5-5.1) 11/06/18 06:04 BUN 33 mg/dL (7-18) H 11/06/18 06:04 Creatinine 1.08 mg/dL (0.55-1.3) 11/06/18 06:04 Glucose 125 mg/dL (74-106) H 11/06/18 06:04 Phosphorus 3.1 mg/dL (2.5-4.9) 11/06/18 06:04 Magnesium 2.0 mg/dL (1.8-2.4) 11/06/18 06:04 Total Bilirubin 0.6 mg/dL (0.2-1.0) 11/06/18 06:04 AST 35 U/L (15-37) 11/06/18 06:04 ALT 20 U/L (12-78) 11/06/18 06:04 Alkaline Phosphatase 33 U/L (45-117) L 11/06/18 06:04 Troponin I 6.86 ng/mL (0.0-0.045) H* D 11/05/18 12:55 Lipase 93 U/L (73-393) 11/05/18 01:49 Home Medications: Pravastatin Sodium [Pravachol] 20 mg PO BEDTIME 04/05/15 Travoprost (Benzalkonium) [Travatan 0.004% Eye Drop] 1 drop RIGHT EYE BID Aspirin [Aspirin EC 81 MG] 81 mg PO DAILY 05/25/17 Sacubitril/Valsartan [Entresto 24 mg-26 mg Tablet] 1 each PO DAILY 05/25/17 Furosemide [Lasix] 40 mg PO BID #60 tablet 11/06/18 Metoprolol Tartrate [Lopressor*] 25 mg PO BID #60 tab 11/06/18 New Medications: Furosemide [Lasix] 40 mg PO BID #60 tablet Metoprolol Tartrate [Lopressor*] 25 mg PO BID #60 tab Diet: Regular Activity: Ad romina Followup: Zain Tracy MD [ACTIVE - CAN ADMIT] - 1 Week Gina Catalan DO [Primary Care Provider] - 1-2 Weeks (Call to schedule an appointment)
== END 2018-11-07 13:05 | disposition home or self-care (01) | DRG 293 ==
LOC: ER 01:33 → INTOOBSV 03:49 → ERHOLD 03:49 → 4TH 07:44 → OBSVTOIN 11-06 14:16
PROVIDERS: ADMIT Hospitalist; ATTEND Family Medicine
DX: I11.0 Hypertensive heart disease with heart failure (principal); I50.23 Acute on chronic systolic (congestive) heart failure; I27.20 Pulmonary hypertension, unspecified; I49.3 Ventricular premature depolarization; I42.9 Cardiomyopathy, unspecified; Z79.82 Long term (current) use of aspirin; Z95.810 Presence of automatic (implantable) cardiac defibrillator
CPT/HCPCS: 36415; 71045; 71250; 71275; 74176; 80048; 80053; 80076; 81001; 82550; 82553; 82805; 83690; 83735; 83880; 84100; 84484; 85025; 85379; 85610; 85730; 87040; 93005; 93306; 94640; 96374; 96375; 99285; G0378; J1650; J1940; J2930; Q9967

== ENCOUNTER 2019-04-09 22:18 | Observation (INO) | payer OTHER, SELFPAY ==
--- OUTSIDE RECORDS SUMMARY | 2019-04-09 22:20 | XMS REPORT ---
:1935 Author Organization [employer] Care Team Providers Name Role Phone Hossein, Gina Provider Role Unavailable Allergies, Adverse Reactions, Alerts Substance Reaction Event Type N.K.D.A. 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 Active Problem Congestive heart failure, systolic, I50.20 Active left NYHA class 4 Problem Cataract H26.9 Active Problem Glaucoma H40.9 Active Problem Cataract H26.9 Active Problem HTN (hypertension) I10 Active Problem Benign essential HTN I10 Active Problem Acquired thrombocytopenia D69.6 Active Problem Systolic CHF I50.20 Active Problem Acute pain of right shoulder M25.511 Active Problem Wound check, abscess Z51.89 Active Problem Spinal stenosis in cervical region M48.02 Active Problem Thrombocytopenia D69.6 Active Problem Chronic fatigue R53.82 Active Problem Glaucoma H40.9 Active Problem Diverticulosis K57.90 Active Problem Gastroesophageal reflux disease K21.9 Active without esophagitis Problem 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 Problem Atypical chest pain R07.89 Active Assessment Needs flu shot Z23 Active Problem Chronic systolic congestive heart I50.22 Active failure Assessment Chronic fatigue R53.82 Active Problem Osteoarthritis, 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 Problem Mixed hyperlipidemia E78.2 Active Problem Left sided colitis with rectal K51.511 Active bleeding Problem Left sided colitis with rectal K51.511 Active bleeding Problem Hyperlipidemia, mixed E78.2 Active Problem 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 Active Problem Degenerative disc disease, cervical M50.30 Active Medications Medication Code Code Instructions Start End Status Dosage System Date Date Hannah [facility] 81511090385 0.2-0.5 % Active 1 drop into Ophthalmic affected eye Twice a day Entresto [facility] 86855997222 24/26mg oral Active one 24/26mg bid Pravastatin [facility] 33407849172 20 MG Orally Active 1 tablet Sodium Once a day Metoprolol [facility] 91919285494 25 MG Orally Active 1/2 capsule Succinate Once a day Furosemide ND 0 Active not defined Fiber Adult [facility] [address] Active not defined Gummies PreserVision [facility] [address]-24 Active not defined AREDS Travatan Z [facility] 48678736694 0.004 % Active 1 drop into Ophthalmic affected eye Once a day in the evening Indomethacin [facility] 98898298807 50 MG Orally Jan 25, Active 1 capsule TID 2018 Vitamin D-3 [facility] 36423-13705 Active not defined Protonix [facility] 06548459163 40 MG Orally Active 1 tablet Once a day Metoprolol [facility] 57893204257 25 MG Orally Inactive 1 tablet with Tartrate Twice a day food Clotrimazole-Be [facility] 72651673998 1-0.05 % Mar 06, Active 1 application tamethasone Externally 2018 to affected Twice a day area Aspir-81 [facility] 95972443109 81 MG Orally Active 1 tablet Once a day Metoprolol [facility] 76323996721 25 MG Active TAKE 1 TABLET Succinate ER BY MOUTH EVERY DAY Furosemide [facility] 18892359949 40 MG Orally Active 1 tablet Once a day Results No Known Results Immunizations Vaccine Administration Date FluAD Dec 23, 2018 Summary Purpose [employer]Works Submission
--- OUTSIDE RECORDS SUMMARY | 2019-04-09 22:20 | XMS REPORT ---
:1935 Author Organization [employer] Care Team Providers Name Role Phone Catalan, Gina Provider Role Unavailable Allergies, Adverse Reactions, Alerts Substance Reaction Event Type N.K.D.A. 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 Active Problem Congestive heart failure, systolic, I50.20 Active left NYHA class 4 Problem Cataract H26.9 Active Problem HTN (hypertension) I10 Active Problem Cataract H26.9 Active Problem Benign essential HTN I10 Active Problem Glaucoma H40.9 Active Problem Systolic CHF I50.20 Active Problem Gastroesophageal reflux disease K21.9 Active without esophagitis Problem Acquired thrombocytopenia D69.6 Active Problem Chronic fatigue R53.82 Active Problem Acute pain of right shoulder M25.511 Active Problem Mixed hyperlipidemia E78.2 Active Problem Spinal stenosis in cervical region M48.02 Active Problem Seasonal allergic rhinitis, J30.2 Active unspecified trigger Problem Thrombocytopenia D69.6 Active Problem Atypical chest pain R07.89 Active Problem Diverticulosis K57.90 Active Problem Wound check, abscess Z51.89 Active Problem 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 Assessment Gastroesophageal reflux disease K21.9 Active without esophagitis Problem Osteoarthritis, 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 Assessment Seasonal allergic rhinitis, J30.2 Active unspecified trigger Problem 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 Active Problem Left sided colitis with rectal K51.511 Active bleeding Assessment Acute pain of right shoulder M25.511 Active Problem Chronic systolic congestive heart I50.22 Active failure Problem Hyperlipidemia, mixed E78.2 Active Problem Glaucoma H40.9 Active Problem Degenerative disc disease, cervical M50.30 Active Problem Left sided colitis with rectal K51.511 Active bleeding Medications Medication Code Code Instructions Start End Status Dosage System Date Date Clotrimazole-Be [facility] 58416133150 1-0.05 % Nov 29, Active 1 application tamethasone Externally 2017 to affected Twice a day area Potassium [facility] 20034237172 20 MEQ Orally Dec Active 1 capsule Chloride Once a day , taken with 2018 2019 lasix Indomethacin [facility] 48961952315 50 MG Orally Jan 25, Active 1 capsule TID 2017 Combigan [facility] 66494340326 0.2-0.5 % Active 1 drop into Ophthalmic affected eye Twice a day Aspir-81 [facility] 53041025872 81 MG Orally Active 1 tablet Once a day Metoprolol [facility] 77985423751 25 MG Active TAKE 1 TABLET Succinate ER BY MOUTH EVERY DAY Fiber Adult [facility] [address] Active not defined Gummies Pravastatin [facility] 30578689689 20 MG Orally Active 1 tablet Sodium Once a day PreserVision [facility] [address]-88 Active not defined AREDS Furosemide [facility] 14225777696 40 MG Orally Active 1 tablet Once a day Vitamin D-3 [facility] [address]-76 Active not defined Travatan Z [facility] 19835398361 0.004 % Active 1 drop into Ophthalmic affected eye Once a day in the evening Protonix [facility] 60218697813 40 MG Orally Active 1 tablet Once a day Furosemide ND 0 Active not defined Cetirizine HCl [facility] 36793474934 10 MG Orally Feb 23, August 21, Active 1 tablet Once a day 2018 2019 Metoprolol [facility] 72467325240 25 MG Orally Active 1/2 capsule Succinate Once a day Entresto [facility] 22506201808 24/26mg oral Active one 24/26mg bid Results No Known Results Summary Purpose eClinicalWorks Submission
[2019-04-09] MEDS ORDERED: FAMOTIDINE 20 MG/2 ML VIAL IV ONE (23:11)
[2019-04-09] MEDS ORDERED: NA CHLORIDE 0.9% 1,000 ML ONE (23:11)
[2019-04-09 23:24] LABS: Protime INR 1.09
[2019-04-09 23:39] LABS: Absolute Lymphocytes (CBC) 1.4 K/uL (0.7-4.9); Basophils % 0.7 % (0-1.3); Hematocrit 44.6 % (39.6-49.0); Lymphocytes % 12.2 % (15.3-44.8); RBC Red Blood Cell Count 4.63 M/uL (4.33-5.43)
[2019-04-09 23:40] LABS: Albumin 3.6 g/dL (3.4-5.0); Bilirubin Direct 0.4 mg/dL (0-0.2); Bilirubin Total 0.9 mg/dL (0.2-1.0); Magnesium 2.5 mg/dL (1.8-2.4); Potassium 3.8 mmol/L (3.5-5.1); Protein, Total 7.3 g/dL (6.4-8.2); Troponin (Emerg Dept Use Only) 0.03 ng/mL (0.0-0.045)
[2019-04-10] MEDS ORDERED: MORPHINE 2 MG/ML SYR ONE
[2019-04-10] MEDS ORDERED: PIPER/TAZO/NS 3.375gm 3.375 GM/100 ML BAG ONE
[2019-04-10] MEDS ORDERED: ONDANSETRON 4 MG/2 ML VIAL ONE
[2019-04-10 00:43] LABS: Blood Morphology Comment NOT SEEN (NOT SEEN); Platelet Estimate ADEQ; Urine White Blood Cell Casts OK
--- NOTE | 2019-04-10 01:58 | ER ---
Nurse's Notes [facility] Name: Elvis Church Age: 83 yrs Sex: Male : 1935 Arrival Date: 04/09/2019 Time: 22:20 Bed 16 Private MD: Diagnosis: Other chest pain;Abdominal tenderness Presentation: 04/09 22:38 Presenting complaint: Patient states: he started having epigastric pain today going bb through to his back starting at approx 1730 has nausea but denies vomiting or diarrhea. Transition of care: patient was not received from another setting of care. Onset of symptoms was April 09, 2019. Risk Assessment: Do you want to hurt yourself or someone else? Patient reports no desire to harm self or others. Initial Sepsis Screen: Does the patient meet any 2 criteria? No. Patient's initial sepsis screen is negative. Does the patient have a suspected source of infection? No. Patient's initial sepsis screen is negative. Care prior to arrival: None. 22:38 Method Of Arrival: Ambulatory bb 22:38 Acuity: AMRIT 2 bb Historical: - Allergies: 22:42 No Known Allergies; bb - Home Meds: 22:42 aspirin 81 mg Oral chew 1 tab once daily [Active]; travatan eye drop both eyes bid bb [Active]; pravastatin 20 mg Oral tab nightly [Active]; Metoprolol Tartrate Oral [Active]; Betimol ophthalmic ophthalmic [Active]; Combigan ophthalmic ophthalmic [Active]; - PMHx: 22:42 Glaucoma; High Cholesterol; Hypertension; bb 22:46 CHF; bb - PSHx: 22:42 Pacemaker/Defibrillator; Irregular heart rate; bb - Immunization history:: Adult Immunizations up to date. - Social history:: Smoking status: Patient/guardian denies using tobacco. - Ebola Screening: : No symptoms or risks identified at this time. - Family history:: not pertinent. Screenin:00 Abuse screen: Denies threats or abuse. Nutritional screening: No deficits noted. tr5 Tuberculosis screening: No symptoms or risk factors identified. Fall Risk None identified. Assessment: 23:00 Pain: Complains of pain in epigastric area, right upper quadrant and left upper tr5 quadrant Pain radiates to back. Neuro: Level of Consciousness is awake, alert, obeys commands, Oriented to person, place, time, Group Fitness Assistant Department Head are equal bilaterally Moves all extremities. Cardiovascular: Heart tones present Capillary refill < 3 seconds. Cardiovascular: Pulses are all present. Edema is absent. Rhythm is ventricular pacer. Respiratory: Airway is patent Respiratory effort is even, unlabored, Respiratory pattern is regular, symmetrical. GI: Bowel sounds present X 4 quads. Abd is soft. GI: Reports nausea. GI: Reports upper abdominal pain. : No signs and/or symptoms were reported regarding the genitourinary system. EENT: No signs and/or symptoms were reported regarding the EENT system. Derm: No signs and/or symptoms reported regarding the dermatologic system. Musculoskeletal: No signs and/or symptoms reported regarding the musculoskeletal system. 04/10 00:00 Reassessment: Patient appears in no apparent distress at this time. Patient and/or tr5 family updated on plan of care and expected duration. Pain level reassessed. Patient is alert, oriented x 3, equal unlabored respirations, skin warm/dry/pink. 01:00 Reassessment: Patient appears in no apparent distress at this time. Patient and/or tr5 family updated on plan of care and expected duration. Pain level reassessed. Patient is alert, oriented x 3, equal unlabored respirations, skin warm/dry/pink. Vital Signs: 04/09 22:42 BP 120 / 69 LA Sitting (auto/reg); Pulse 70; Resp 16 S; Temp 97.8(O); Pulse Ox 98% on bb R/A; Weight 68.95 kg (R); Height 5 ft. 5 in. (165.10 cm) (R); Pain 8/10; 22:42 BP 107 / 67 RA Supine (auto/reg); bb 04/10 00:00 BP 104 / 58; Pulse 72; Resp 17; Pulse Ox 100% on R/A; tr5 01:00 BP 114 / 54; Pulse 72; Resp 15; Pulse Ox 99% on R/A; tr5 01:00 BP 109 / 65; Pulse 66; Resp 17; Pulse Ox 99% on R/A; tr5 04/09 22:42 Body Mass Index 25.29 (68.95 kg, 165.10 cm) ED Course: 04/09 22:20 Patient arrived in ED. cl3 22:40 Triage completed. 22:42 Arm band placed on Patient placed in an exam room, on a stretcher, on associate professor of art, bb on pulse oximetry. Family accompanied patient. 22:44 Eddie Mcdowell MD is Attending Physician. shabnam 22:50 Mahesh Mane, ARNOLD is Primary Nurse. tr5 22:50 Missed attempt(s): 20 gauge in right Bleeding controlled, band aid applied, catheter jp3 tip intact. 22:55 Missed attempt(s): 20 gauge in right forearm. Bleeding controlled, band aid applied, jp3 catheter tip intact. 23:00 Patient maintains SpO2 saturation greater than 95% on room air. jp3 23:00 Initial lab(s) drawn, by me, sent to lab. Inserted saline lock: 22 gauge in left jp3 forearm, using aseptic technique. Blood collected. 23:06 Placed in gown. Bed in low position. Call light in reach. Side rails up X 1. Side rails jp3 up X2. Warm blanket given. Verbal reassurance given. fitter tacker on. Pulse ox on. NIBP on. 23:14 XRAY Chest (1 view) In Process Unspecified. EDMS 04/10 01:31 CT Abd/Pelvis - PO and IV Contrast In Process Unspecified. EDMS 01:49 Sarah Infante MD is Hospitalizing Provider. shabnam 03:01 No provider procedures requiring assistance completed. Patient admitted, IV remains in tl2 place. 09:44 Troponin I Sent. kj1 Administered Medications: 04/09 23:14 Drug: NS 0.9% 1000 ml Route: IV; Rate: 75 ml/hr; Site: left forearm; sr5 23:15 Drug: Pepcid 20 mg Route: IVP; Site: left forearm; sr5 04/10 00:17 Follow up: Response: Marked relief of symptoms tr5 00:16 Drug: Zosyn 3.375 grams Route: IVPB; Infused Over: 60 mins; Site: right antecubital; tr5 00:17 Drug: morphine 2 mg {Note: RASS:0.} Route: IVP; Site: right antecubital; tr5 00:17 Drug: Zofran 4 mg Route: IVP; Site: right antecubital; tr5 Outcome: 01:50 Decision to Hospitalize by Provider. shabnam 03:01 Admitted to ER Hold. Please see [facility] for further documentation. tl2 03:01 Condition: stable 03:01 Discharge instructions given to patient, Instructed on the need for admit. 14:58 Patient left the ED. iw Signatures: Dispatcher [employer] Eddie Owen MD MD cha Ballard, Brenda, RN RN Elizabeth Soriano RN RN iw Armaan Knight RN RN sr5 Casandra Ceja RN RN tl2 Priyank Rangel jp3 Eva Santiago kj1 Mahesh Mane RN RN tr5 Eleno Pryor 3
--- NOTE | 2019-04-10 01:59 | EDPHYS ---
Physician Documentation [facility] Name: Elvis Church Age: 83 yrs Sex: Male : 1935 Arrival Date: 04/09/2019 Time: 22:20 Bed 16 Private MD: ED Physician Eddie Mcdowell HPI: 04/09 23:13 This 83 yrs old Male presents to ER via Ambulatory with complaints of shabnam Abdominal Pain. 23:13 The patient or guardian reports chest pain that is located primarily in the substernal shabnam area, epigastric area. Onset: just prior to arrival, today. The patient presents with abdominal pain abdominal distention in the upper abdomen. Onset: The symptoms/episode began/occurred today. The pain radiates to back. Associated signs and symptoms: none. Modifying factors: The symptoms are alleviated by nothing, the symptoms are aggravated by nothing. Historical: - Allergies: 22:42 No Known Allergies; bb - Home Meds: 22:42 aspirin 81 mg Oral chew 1 tab once daily [Active]; travatan eye drop both eyes bid bb [Active]; pravastatin 20 mg Oral tab nightly [Active]; Metoprolol Tartrate Oral [Active]; Betimol ophthalmic ophthalmic [Active]; Combigan ophthalmic ophthalmic [Active]; - PMHx: 22:42 Glaucoma; High Cholesterol; Hypertension; bb 22:46 CHF; bb - PSHx: 22:42 Pacemaker/Defibrillator; Irregular heart rate; bb - Immunization history:: Adult Immunizations up to date. - Social history:: Smoking status: Patient/guardian denies using tobacco. - Ebola Screening: : No symptoms or risks identified at this time. - Family history:: not pertinent. ROS: 23:13 Constitutional: Negative for fever, chills, and weight loss, Eyes: Negative for injury, shabnam pain, redness, and discharge, ENT: Negative for injury, pain, and discharge, Neck: Negative for injury, pain, and swelling, Cardiovascular: Negative for chest pain, palpitations, and edema, Respiratory: Negative for shortness of breath, cough, wheezing, and pleuritic chest pain, Back: Negative for injury and pain, : Negative for injury, bleeding, discharge, and swelling, MS/Extremity: Negative for injury and deformity, Skin: Negative for injury, rash, and discoloration, Neuro: Negative for headache, weakness, numbness, tingling, and seizure, Psych: Negative for depression, anxiety, suicide ideation, homicidal ideation, and hallucinations, Allergy/Immunology: Negative for hives, rash, and allergies, Endocrine: Negative for neck swelling, polydipsia, polyuria, polyphagia, and marked weight changes, Hematologic/Lymphatic: Negative for swollen nodes, abnormal bleeding, and unusual bruising. 23:13 Abdomen/GI: Positive for abdominal pain, nausea and vomiting, nausea, vomiting, and diarrhea, nausea, of the epigastric area, right upper quadrant and left upper quadrant. Exam: 23:13 Constitutional: This is a well developed, well nourished patient who is awake, alert, shabnam and in no acute distress. Head/Face: Normocephalic, atraumatic. Eyes: Pupils equal round and reactive to light, extra-ocular motions intact. Lids and lashes normal. Conjunctiva and sclera are non-icteric and not injected. Cornea within normal limits. Periorbital areas with no swelling, redness, or edema. ENT: Nares patent. No nasal discharge, no septal abnormalities noted. Tympanic membranes are normal and external auditory canals are clear. Oropharynx with no redness, swelling, or masses, exudates, or evidence of obstruction, uvula midline. Mucous membranes moist. Neck: Trachea midline, no thyromegaly or masses palpated, and no cervical lymphadenopathy. Supple, full range of motion without nuchal rigidity, or vertebral point tenderness. No Meningismus. Chest/axilla: Normal chest wall appearance and motion. Nontender with no deformity. No lesions are appreciated. Cardiovascular: Regular rate and rhythm with a normal S1 and S2. No gallops, murmurs, or rubs. Normal PMI, no JVD. No pulse deficits. Respiratory: Lungs have equal breath sounds bilaterally, clear to auscultation and percussion. No rales, rhonchi or wheezes noted. No increased work of breathing, no retractions or nasal flaring. Back: No spinal tenderness. No costovertebral tenderness. Full range of motion. Male : Normal genitalia with no discharge or lesions. Skin: Warm, dry with normal turgor. Normal color with no rashes, no lesions, and no evidence of cellulitis. MS/ Extremity: Pulses equal, no cyanosis. Neurovascular intact. Full, normal range of motion. Neuro: Awake and alert, GCS 15, oriented to person, place, time, and situation. Cranial nerves II-XII grossly intact. Motor strength 5/5 in all extremities. Sensory grossly intact. Cerebellar exam normal. Normal gait. Psych: Awake, alert, with orientation to person, place and time. Behavior, mood, and affect are within normal limits. 23:13 Abdomen/GI: Inspection: abdomen appears normal, Bowel sounds: normal, Palpation: moderate abdominal tenderness, in the epigastric area, right upper quadrant and left upper quadrant, Liver: tenderness, that is mild, Hernia: not appreciated. 04/10 10:05 ECG was reviewed by the Attending Physician. kdr Vital Signs: 04/09 22:42 BP 120 / 69 LA Sitting (auto/reg); Pulse 70; Resp 16 S; Temp 97.8(O); Pulse Ox 98% on bb R/A; Weight 68.95 kg (R); Height 5 ft. 5 in. (165.10 cm) (R); Pain 8/10; 22:42 BP 107 / 67 RA Supine (auto/reg); bb 04/10 00:00 BP 104 / 58; Pulse 72; Resp 17; Pulse Ox 100% on R/A; tr5 01:00 BP 114 / 54; Pulse 72; Resp 15; Pulse Ox 99% on R/A; tr5 01:00 BP 109 / 65; Pulse 66; Resp 17; Pulse Ox 99% on R/A; tr5 04/09 22:42 Body Mass Index 25.29 (68.95 kg, 165.10 cm) bb MDM: 04/09 22:[address] [facility] 23:16 Data reviewed: vital signs, nurses notes, lab test result(s), EKG, radiologic studies, [facility] CT scan, plain films. 04/09 22:45 Order name: Basic Metabolic Panel; Complete Time: 00:18 shabnam 04/09 22:45 Order name: CBC with Diff; Complete Time: 01:[address] [facility] 04/09 22:45 Order name: LFT's; Complete Time: 00:18 shabnam 04/09 22:45 Order name: Magnesium; Complete Time: 00:[address] [facility] 04/09 22:45 Order name: NT PRO-BNP; Complete Time: 00:[address] [facility] 04/09 22:45 Order name: PT-INR; Complete Time: 00:[address] [facility] 04/09 22:45 Order name: Troponin (emerg Dept Use Only); Complete Time: 00:[address] [facility] 04/09 22:45 Order name: Lipase; Complete Time: 00:[address] [facility] 04/09 22:45 Order name: Urine Culture [facility] 04/10 00:45 Order name: CBC Smear Scan; Complete Time: 01:15 [facility] 04/10 04:11 Order name: Basic Metabolic Panel [facility] 04/10 04:11 Order name: Basic Metabolic Panel [facility] 04/10 04:11 Order name: CBC with Automated Diff [facility] 04/10 04:11 Order name: CBC with Automated Diff [facility] 04/09 22:45 Order name: XRAY Chest (1 view) [facility] 04/09 22:45 Order name: EKG; Complete Time: 22:[address] [facility] 04/09 23:13 Order name: CT Abd/Pelvis - PO and IV Contrast [facility] 04/10 04:10 Order name: CONS Physician Consult [facility] 04/10 04:10 Order name: Heart Healthy [facility] 04/10 04:10 Order name: EKG Electrocardiogram [facility] 04/10 04:11 Order name: Lipid Profile [facility] 04/10 04:11 Order name: Lipid Profile [facility] 04/10 04:11 Order name: Troponin I [facility] 04/10 04:11 Order name: Troponin I [facility] 04/10 10:16 Order name: Troponin I [facility] 04/09 22:45 Order name: Cardiac monitoring; Complete Time: 23:[address] [facility] 04/09 22:45 Order name: EKG - Nurse/Tech; Complete Time: 00:[address] [facility] 04/09 22:45 Order name: IV Saline Lock; Complete Time: 23:[address] [facility] 04/09 22:45 Order name: Labs collected and sent; Complete Time: 23:[address] [facility] 04/09 22:45 Order name: O2 Per Protocol; Complete Time: 23:[address] [facility] 04/09 22:45 Order name: O2 Sat Monitoring; Complete Time: 23:[address] [facility] 04/10 04:10 Order name: EKG Electrocardiogram [facility] EC/03 10:05 Rate is 60 beats/min. Clinical impression: Paced rhythm. kdr Administered Medications: 04/09 23:14 Drug: NS 0.9% 1000 ml Route: IV; Rate: 75 ml/hr; Site: left forearm; sr5 23:15 Drug: Pepcid 20 mg Route: IVP; Site: left forearm; sr5 04/10 00:17 Follow up: Response: Marked relief of symptoms tr5 00:16 Drug: Zosyn 3.375 grams Route: IVPB; Infused Over: 60 mins; Site: right antecubital; tr5 00:17 Drug: morphine 2 mg {Note: RASS:0.} Route: IVP; Site: right antecubital; tr5 00:17 Drug: Zofran 4 mg Route: IVP; Site: right antecubital; tr5 Disposition: 04/10/19 01:50 Hospitalization ordered by Sarah Infante for Inpatient Admission. Preliminary diagnosis are Other chest pain, Abdominal tenderness. - Bed requested for [facility] ER HOLD. - Status is Inpatient Admission. iw - Condition is Fair. - Problem is new. - Symptoms have improved. UTI on Admission? No Signatures: Dispatcher [employer] EDMS Kelly Andrews RN RN mw Anderson, Corey, MD MD cha Rittger, Kevin, MD MD kdr Ballard, Brenda RN Elizabeth Hardin RN RN Armaan Knight RN RN sr5 Mahesh Mane, RN RN tr5 Corrections: (The following items were deleted from the chart) 02:04 01:50 Hospitalization Ordered by Sarah Infante MD for Inpatient Admission. Preliminary diagnosis is Other chest pain; Abdominal tenderness. Bed requested for Telemetry/MedSurg (Inpatient). Status is Inpatient Admission. Condition is Fair. Problem is new. Symptoms have improved. UTI on Admission? No. shabnam 06:23 02:04 04/10/2019 01:50 Hospitalization Ordered by Sarah Infante MD for Inpatient mw Admission. Preliminary diagnosis is Other chest pain; Abdominal tenderness. Bed requested for [facility] ER HOLD. Status is Inpatient Admission. Condition is Fair. Problem is new. Symptoms have improved. UTI on Admission? No. sumi 07:57 06:23 04/10/2019 01:50 Hospitalization Ordered by Sarah Infante MD for Inpatient iw Admission. Preliminary diagnosis is Other chest pain; Abdominal tenderness. Bed requested for Telemetry/MedSurg (Inpatient). Status is Inpatient Admission. Condition is Fair. Problem is new. Symptoms have improved. UTI on Admission? No. sumi 07:59 07:57 04/10/2019 01:50 Hospitalization Ordered by Sarah Infante MD for Inpatient iw Admission. Preliminary diagnosis is Other chest pain; Abdominal tenderness. Bed requested for Telemetry/MedSurg (Inpatient). Status is Inpatient Admission. Condition is Fair. Problem is new. Symptoms have improved. UTI on Admission? No. iw 14:58 07:59 04/10/2019 01:50 Hospitalization Ordered by Sarah Infante MD for Inpatient iw Admission. Preliminary diagnosis is Other chest pain; Abdominal tenderness. Bed requested for [facility] ER HOLD. Status is Inpatient Admission. Condition is Fair. Problem is new. Symptoms have improved. UTI on Admission? No. iw
[2019-04-10] MEDS ORDERED: ALPRAZOLAM 0.25 MG TABLET PO PRN (04:02)
[2019-04-10] MEDS ORDERED: MORPHINE 4 MG/ML SYR IV PRN (04:02)
[2019-04-10] MEDS ORDERED: ACETAMINOPHEN 500 MG TAB PO PRN (04:02)
--- NOTE | 2019-04-10 04:11 | P.HP ---
Certification for Inpatient Patient admitted to: Observation With expected LOS: <2 Midnights Patient will require the following post-hospital care: None Practitioner: I am a practitioner with admitting privileges, knowledge of patient current condition, hospital course, and medical plan of care. Services: Services provided to patient in accordance with Admission requirements found in Title 42 Section 412.3 of the Code of Federal Regulations Patient History Date of Service: 04/10/19 Reason for admission: Chest pain rule out acute coronary syndrome/gastritis History of Present Illness: Patient is an 83-year-old gentleman who came to the hospital with epigastric pain. He had been eating the really spicy meal and afterwards started having epigastric tenderness. Patient has history of Coronary artery disease and cardiomyopathy. He came into the hospital for further evaluation. In the emergency room his workup is been unremarkable. His pain is improved. It appears he has some gastroesophageal reflux disease or gastritis. Will go ahead and put him on a PPI and rule him out for acute coronary syndrome. Anticipate discharge home this morning. Will get a cardiology consultation as well. Allergies No Known Allergies Allergy (Verified 06/04/18 03:34) Home Medications: Pravastatin Sodium [Pravachol] 20 mg PO BEDTIME 04/05/15 Travoprost (Benzalkonium) [Travatan 0.004% Eye Drop] 1 drop RIGHT EYE BID Aspirin [Aspirin EC 81 MG] 81 mg PO DAILY 05/25/17 Sacubitril/Valsartan [Entresto 24 mg-26 mg Tablet] 1 each PO DAILY 05/25/17 Furosemide [Lasix] 40 mg PO BID #60 tablet 11/06/18 Metoprolol Tartrate [Lopressor*] 25 mg PO BID #60 tab 11/06/18 - Past Medical/Surgical History Diabetic: No -: Glaucoma -: Hypertension -: Congestive heart failure-systolic dysfunction(EF=equals 20-25%) -: Hyperlipidemia -: Pacemaker/defibrillator -: Cardiac catheterization -: Left eye lens implant - Family History Father Medical History: Heart disease Mother Notes: - Social History Smoking Status: Former smoker Alcohol use: No CD- Drugs: No Caffeine use: No Review of Systems 10-point ROS is otherwise unremarkable Physical Examination - Vital Signs Temperature: 98 F Blood Pressure: 120/85 Pulse: 80 Respirations: 18 Pulse Ox (%): 96 - Physical Exam General: Alert, In no apparent distress, Oriented x3 HEENT: Atraumatic, Normocephalic Neck: Supple, 2+ carotid pulse no bruit, JVD not distended, No Thyromegaly Respiratory: Clear to auscultation bilaterally, Normal air movement Cardiovascular: No edema, Normal pulses, Regular rate/rhythm, Normal S1 S2, Systolic murmur Gastrointestinal: Normal bowel sounds, Hypoactive, Soft and benign, Non- distended, No rebound, No guarding Musculoskeletal: No clubbing, No swelling Integumentary: No rashes Neurological: Normal gait, Normal speech, Normal strength at 5/5 x4 extr, Normal tone, Sensation intact, Cranial nerves 3-12 intact - Studies Laboratory Data (last 24 hrs) 04/09/19 23:00: PT 12.8 H, INR 1.09 04/09/19 23:00: WBC 11.6 H, Hgb 15.0, Hct 44.6, Plt Count 167 04/09/19 23:00: Sodium 142, Potassium 3.8, BUN 19 H, Creatinine 0.91, Glucose 124 H, Magnesium 2.5 H D, Total Bilirubin 0.9, AST 40 H, ALT 42, Alkaline Phosphatase 71, Lipase 92 Assessment & Plan - Problems (Diagnosis) (1) Epigastric abdominal tenderness Current Visit: Yes Status: Acute (2) Acute exacerbation of congestive heart failure Current Visit: No Status: Acute Qualifiers: (3) Chest pain, rule out acute myocardial infarction Current Visit: No Status: Acute (4) Pulmonary hypertension Current Visit: No Status: Acute (5) Presence of combination internal cardiac defibrillator (ICD) and pacemaker Current Visit: No Status: Chronic - Plan 1. Serial troponins and EKG 2. Cardiology consultation in the morning 3. Outpatient GI workup if necessary. We will start patient on a PPI 4. Continue with cardiac medications; Anti-platelet therapy, anti coagulation, beta-jen, statin, and O2 as needed 5. IV morphine for pain 6. Nitro p.r.n. - Advance Directives Does patient have a Living Will: Yes Does patient have a Durable POA for Healthcare: Yes - Code Status/Comfort Care Code Status Assessed: Yes Code Status: Full Code Critical Care: No Time Spent Managing PTS Care (In Minutes): 50
[2019-04-10 04:25] VITALS: BMI 25.7
[2019-04-10 05:28] LABS: Troponin I 0.03 ng/mL (0.0-0.045)
[2019-04-10] MEDS: METOPROLOL TAR 50 MG TAB PO SCH ×2 (06:00→09:00)
[2019-04-10] MEDS ORDERED: METOPROLOL TAR 25 MG TAB ONE ×2 (06:00→10:31)
--- NOTE | 2019-04-10 06:44 | EKG ---
Test Date: 2019-04-10 Test Time: 00:08:17 Bar Catcher: TR MEASUREMENT RESULTS: Intervals: Rate: 71 DE: 176 QRSD: 170 QT: 456 QTc: 495 [place]: P: 27 DE: 176 QRS: -77 T: 72 INTERPRETIVE STATEMENTS: Electronic ventricular pacemaker Compared to ECG 11/05/2018 05:30:13 Atrial-sensed ventricular-paced complex(es) or rhythm no longer present Sinus rhythm no longer present Ventricular premature complex(es) no longer present Electronically Signed On 04-10-19 06:43:26 HAND CIGAR MAKER by Zain Tracy
--- NOTE | 2019-04-10 07:36 | P.DS ---
Discharge Date: 04/10/19 Disposition: ROUTINE DISCHARGE Discharge Condition: GOOD Reason for Admission: Chest pain rule out acute coronary syndrome/gastritis - Problems (1) Epigastric abdominal tenderness Current Visit: Yes Status: Acute (2) Acute exacerbation of congestive heart failure Current Visit: No Status: Acute Qualifiers: (3) Chest pain, rule out acute myocardial infarction Current Visit: No Status: Acute (4) Pulmonary hypertension Current Visit: No Status: Acute (5) Presence of combination internal cardiac defibrillator (ICD) and pacemaker Current Visit: No Status: Chronic Brief History of Present Illness: Patient is an 83-year-old gentleman who came to the hospital with epigastric pain. He had been eating the really spicy meal and afterwards started having epigastric tenderness. Patient has history of Coronary artery disease and cardiomyopathy. He came into the hospital for further evaluation. In the emergency room his workup is been unremarkable. His pain is improved. It appears he has some gastroesophageal reflux disease or gastritis. Will go ahead and put him on a PPI and rule him out for acute coronary syndrome. Anticipate discharge home this morning. Will get a cardiology consultation as well. Hospital Course: Troponins were negative. Symptoms most likely related to gastritis. Continue with PPI and daily. Outpatient follow-up with Cardiology and Gastroenterology. Vital Signs/Physical Exam: Temp Pulse Resp BP Pulse Ox 98 F 74 18 105/60 96 04/10/19 04:11 04/10/19 06:00 04/10/19 04:11 04/10/19 06:00 04/10/19 04:11 General: Alert, In no apparent distress, Oriented x3 Laboratory Data at Discharge: WBC 11.6 K/uL (4.3-10.9) H 04/09/19 23:00 Hgb 15.0 g/dL (13.6-17.9) 04/09/19 23:00 Hct 44.6 % (39.6-49.0) 04/09/19 23:00 Plt Count 167 K/uL (152-406) 04/09/19 23:00 PT 12.8 SECONDS (9.5-12.5) H 04/09/19 23:00 INR 1.09 04/09/19 23:00 Sodium 142 mmol/L (136-145) 04/09/19 23:00 Potassium 3.8 mmol/L (3.5-5.1) 04/09/19 23:00 BUN 19 mg/dL (7-18) H 04/09/19 23:00 Creatinine 0.91 mg/dL (0.55-1.3) 04/09/19 23:00 Glucose 124 mg/dL (74-106) H 04/09/19 23:00 Magnesium 2.5 mg/dL (1.8-2.4) H D 04/09/19 23:00 Total Bilirubin 0.9 mg/dL (0.2-1.0) 04/09/19 23:00 AST 40 U/L (15-37) H 04/09/19 23:00 ALT 42 U/L (12-78) 04/09/19 23:00 Alkaline Phosphatase 71 U/L (45-117) 04/09/19 23:00 Troponin I 0.03 ng/mL (0.0-0.045) 04/10/19 05:00 Triglycerides 79 mg/dL (<150) 04/10/19 05:00 Cholesterol 129 mg/dL (<200) 04/10/19 05:00 HDL Cholesterol 52 mg/dL (40-60) 04/10/19 05:00 Cholesterol/HDL Ratio 2.48 04/10/19 05:00 Lipase 92 U/L (73-393) 04/09/19 23:00 Home Medications: Pravastatin Sodium [Pravachol] 20 mg PO BEDTIME 04/05/15 Travoprost (Benzalkonium) [Travatan 0.004% Eye Drop] 1 drop RIGHT EYE BID Aspirin [Aspirin EC 81 MG] 81 mg PO DAILY 05/25/17 Sacubitril/Valsartan [Entresto 24 mg-26 mg Tablet] 1 each PO DAILY 05/25/17 Furosemide [Lasix] 40 mg PO BID #60 tablet 11/06/18 Metoprolol Tartrate [Lopressor*] 25 mg PO BID #60 tab 11/06/18 Metoprolol Tartrate [Lopressor*] 25 mg PO BID #60 tab 04/10/19 Omeprazole [Prilosec] 40 mg PO DAILY #30 capsule. 04/10/19 New Medications: Metoprolol Tartrate [Lopressor*] 25 mg PO BID #60 tab Omeprazole [Prilosec] 40 mg PO DAILY #30 capsule. Patient Discharge Instructions: OK TO DC IV AND DC HOME if 3rd troponin is negative as well. FOLLOW-UP WITH PRIMARY CARE PROVIDER IN 1-2 WEEKS. Follow- up with Gastroenterology in 2-4 weeks. FOLLOW-UP WITH CARDIOLOGY IN 1-2 WEEKS. RETURN TO THE ER IF symptoms worsen. CALL or TEXT DR. WHEELER AT [phone] IF ANY QUESTIONS REGARDING HOSPITAL STAY. PLEASE CALL THE FLOOR AT [phone] IF ANY MEDICATION OR NURSING QUESTIONS. Refrain from spicy foods and any that is considered acidic Diet: AHA Activity: Fall precautions Time spent managing pt's care (in minutes): 40
[2019-04-10] MEDS ORDERED: INFLUENZA VACCINE (for 3y+) 0.5 ML DOSE IMVAC ONE (08:00)
[2019-04-10] MEDS ORDERED: FUROSEMIDE 40 MG TABLET PO SCH (09:00)
[2019-04-10] MEDS ORDERED: ENOXAPARIN 40 MG/0.4 ML SQ SCH (09:00)
[2019-04-10] MEDS ORDERED: PNEUMOCOCCAL VACCINE 0.5 ML IMVAC ONE ×2 (09:00→13:55)
[2019-04-10] MEDS ORDERED: HOME MED 1 EA UNK (Travoprost (Benzalkonium) [Travatan 0.004% Eye Drop] 1 DROP) RIGHT EYE SCH (09:00)
[2019-04-10] MEDS ORDERED: ASPIRIN EC 81 MG TAB PO SCH ×2 (09:00)
[2019-04-10] MEDS ORDERED: SACUBITRIL/VALSARTAN 24/26 MG TAB PO SCH (09:00)
--- NOTE | 2019-04-10 09:11 | RAD REPORT ---
EXAM DESCRIPTION: RAD - Chest Single View - 04/09/2019 11:15 pm CLINICAL HISTORY: Chest pain, abdominal distention COMPARISON: October 2018 TECHNIQUE: AP portable chest image was obtained 2312 hours . FINDINGS: Lungs are clear. Heart and vasculature are normal. No measurable pleural effusion and no p neumothorax. No acute bony abnormality seen. Defibrillator is in place. No acute aortic finding. No s uspicious change from comparison. IMPRESSION: No acute cardiopulmonary process.
[2019-04-10] MEDS ORDERED: ASPIRIN EC 81 MG TAB PO ONE (10:31)
[2019-04-10] MEDS ORDERED: FUROSEMIDE 40 MG/4 ML VIAL ONE (10:32)
[2019-04-10] MEDS ORDERED: ENOXAPARIN 40 MG/0.4 ML SQ ONE (10:32)
[2019-04-10] MEDS ORDERED: FUROSEMIDE 40 MG TABLET ONE (10:38)
--- NOTE | 2019-04-10 12:02 | RAD REPORT ---
EXAM DESCRIPTION: CT - Abdomen Pelvis W Contrast - 04/10/2019 3:31 am CLINICAL HISTORY: Epigastric pain. COMPARISON: 11/06/2018 TECHNIQUE: CT scan of the abdomen and pelvis was performed with IV contrast. This exam was performed according to our departmental dose-optimization program, which includes automated exposure control, adjustment of the mA and/or kV according to patient size and/or use of iterative reconstruction techn ique. FINDINGS: The lung bases are clear. No pleural or pericardial effusions. The liver, spleen, pancreas , gallbladder, adrenal glands, and kidneys are unremarkable. No hydronephrosis or urinary stones are seen. The pelvic organs are also unremarkable. There are scattered colonic diverticula without surrounding inflammatory changes. No small bowel obst ruction. The appendix is not visualized. No intraperitoneal free fluid or free air is seen. The aorta is normal caliber. The osseous structures are intact. No abnormal body wall hernia is seen. IMPRESSION: No acute abdominal or pelvic findings. Electronically signed by: Claudy Saucedo MD 04/10/2019 1:36 AM TEXTILE KNITTER Due to temporary technical issues with the PACS/Fluency reporting system, reports are being signed by the in house radiologist as a courtesy to ensure prompt reporting. The interpreting radiologist is f ully responsible for the content of the report.
[2019-04-10 13:06] VITALS: TEMP 98.3; O2SAT 97
[2019-04-10 13:22] VITALS: BP 118/72
--- NOTE | 2019-04-10 13:47 | EKG ---
Test Date: 2019-04-10 Test Time: 10:59:08 [place] Gatherer: BRIGID MEASUREMENT RESULTS: Intervals: Rate: 60 MD: 168 QRSD: 186 QT: 524 QTc: 524 [place]: P: -13 MD: 168 QRS: 157 T: 52 INTERPRETIVE STATEMENTS: AV sequential or dual chamber electronic pacemaker Compared to ECG 04/10/2019 00:08:17 Ventricular-paced complex(es) or rhythm no longer present Electronically Signed On 04-10-19 13:46:48 CONTACT OFFICER by Zain Tracy
--- NOTE | 2019-04-10 13:52 | ECHO ---
HEIGHT: 5 ft 5 in WEIGHT: 154 lb 5.177 oz DATE OF STUDY: 04/10/[address]: Zain Tracy MD 2-DIMENSIONAL: YES M.MODE: YES DOPPLER: YES COLOR FLOW: YES TDS: YES PORTABLE: DEFINITY: BUBBLE STUDY: DIAGNOSIS: CHEST PAIN CARDIAC HISTORY: CATHERIZATION: SURGERY: PROSTHETIC VALVE: PACEMAKER: YES MEASUREMENTS (cm) DIASTOLIC (NORMALS) SYSTOLIC (NORMALS) IVSd 1.3 (0.6-1.2) LA Diam 3.6 (1.9-4.0) LVEF 39% LVIDd 5.1 (3.5-5.7) LVIDs 4.5 (2.0-3.5) %FS 15% LVPWd 1.2 (0.6-1.2) Ao Diam 3.1 (2.0-3.7) 2 DIMENSIONAL ASSESSMENT: RIGHT ATRIUM: NORMAL LEFT ATRIUM: NORMAL RIGHT VENTRICLE: PACER LEFT VENTRICLE: NORMAL SIZE TRICUSPID VALVE: NORMAL MITRAL VALVE: NORMAL PULMONIC VALVE: NORMAL AORTIC VALVE: NORMAL PERICARDIAL EFFUSION: NONE AORTIC ROOT: NORMAL LEFT VENTRICULAR WALL MOTION: MODERATE GLOBAL HYPOKINESIS DOPPLER/COLOR FLOW: MILD TRICUSPID REGURGITATION. COMMENTS: MODERATE GLOBAL HYPOKINESIS. MILD TRICUSPID REGURGITATION. EJECTION FRACTION 39%. PACER IN RIGHT VENTRICULAR APEX. NO CHANGE FROM OCTOBER 2018. TECHNOLOGIST: ADRIENNE TOPETE
--- NOTE | 2019-04-10 16:03 | CON ---
Date of Consultation: 04/10/2019 Mr. Church was admitted on 04/10/[address] Infante. I saw the patient on 04/10/2019. Reason For Consultation: Chest pain. History Of Present Illness: Mr. Church is an 83-year-old male. He sees Dr. Venkata Millard at [facility]. He has had a history of pacemaker. Has chronic systolic congestive heart failure with an ejection fraction of 39% as of October of 2018. He has a history of hypertension, dyslipidemia, and glaucoma. He came in with midepigastric pain radiating to the back with some nausea. No vomiting. No diaphoresis. Denied PND, orthopnea, pedal edema, palpitation, or syncope. Symptoms have been goi ng on for about a day. He denied fever or chills or diarrhea. Allergies: HE IS ALLERGIC TO NOTHING. Medications: At home include aspirin, Lasix, metoprolol, Pravachol, and Entresto. Review of Systems: Negative. Social History: Negative. Family History: Negative. Physical Examination: General: Mr. Church was asymptomatic when I saw him. He was in no acute distress. He was in a pa zuleyma rhythm, afebrile. HEENT: Negative. Neck: Supple with no bruit. Chest: Clear to auscultation and percussion. Cardiac: Revealed a paced rhythm. No murmurs, gallops, or rubs. Abdomen: Benign. Extremities: Revealed no clubbing, cyanosis, or edema. Skin: Dry and intact. Neurologic: He was neurologically nonfocal. Diagnostic Data: Showed a BNP of 4631. The rest of it was unremarkable. Impression And Plan: Atypical chest pain. I believe this is gastrointestinal in origin. Could be g astritis, could be esophagitis. I would treat him with a proton pump inhibitor. I do not think he n eeds any repeat cardiac workup for now except for maybe an echocardiogram to make sure his ejection f raction has not worsened. He had a normal coronary artery in 2017 by heart catheterization by Dr. Kobi sifuentes. He does not need another stress test. I believe his echocardiogram is normal. He can probabl y go home. GI workup including an ultrasound of the gallbladder may not be a bad idea. His other pr oblems include chronic systolic congestive heart failure that seems to be stable. He has a pacemaker that has been checked recently. Blood pressure and dyslipidemia are well controlled. I will discus s the case further with Dr. Infante. From my standpoint, he can go home whenever it is okay with him. JEROME/OLGA Voice ID: [id number] Report ID: [id number]
[2019-04-10] MEDS ORDERED: ATORVASTATIN 10 MG TAB PO SCH (21:00)
== END 2019-04-10 12:10 | disposition home or self-care (01) ==
LOC: ER 22:18 → ERHOLD 04-10 04:08
PROVIDERS: ADMIT Hospitalist; ATTEND Hospitalist
DX: R10.816 Epigastric abdominal tenderness (principal); I25.10 Atherosclerotic heart disease of native coronary artery without angina pectoris; I11.0 Hypertensive heart disease with heart failure; I50.22 Chronic systolic (congestive) heart failure; I27.20 Pulmonary hypertension, unspecified; K21.9 Gastro-esophageal reflux disease without esophagitis; Z95.810 Presence of automatic (implantable) cardiac defibrillator; Z23 Encounter for immunization
CPT/HCPCS: 93005 ×2; 93306; 85025; 80048; 36415; 83735; 85610; 80061; 80076; 84484 ×3; 83690; 83880; 74177; 71045; 90471; 90670; 99285; Q9967; J1650; J7030; G0378 ×2; J1940

== ENCOUNTER 2022-11-29 12:46 | Emergency (ER) | payer OTHER ==
--- OUTSIDE RECORDS SUMMARY | 2022-11-29 12:50 | XMS REPORT | Continuity of Care Document ---
:1935 Author Organization [facility] t Address [address] [place] [address] Care Team Providers Name Role Phone Gina Catalan DO Primary Care Physician Esha To Attending Clinician Unavailable Gina Catalan Attending Clinician Unavailable Payers Payer Name Policy Type Policy Number Effective Date Expiration Date S arina MEDICARE MB [id number] [facility] MEDICARE MB [id number] [facility] MEDICARE MB [id number] [facility] Problems Condition Condition Condition Status Onset Resolution Last Treating Co mments Source Name Details Category Date Date Treatment Clinician Date Cardiomyop Cardiomyop Disease Active 2016-0 M ethodi athy 12-26 st 00:00: Hospita 00 l [id number] Eosinophil Problem Co mmon count Spirit raised - [facility] 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, - [facility] Hy[facility] HTN Problem Commo n on (hypertens Spirit ion) - [facility] Cataract Cataract Problem Commo n Spirit [facility] 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 platelet - [facility] count [facility] Glaucoma Glaucoma Problem Commo n Spirit - [facility] 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, Spirit emia mixed [facility] 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 [facility] [id number] Gastroesop Problem Co mmon hageal [facility] reflux - [facility] disease [facility] esophagiti [facility] [id number] Acquired Problem Commo n thrombocyt Spirit openia - [facility] 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 [facility] 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 - [facility] joints joints [facility] Left sided Left sided Problem C ommon ulcerative colitis Spiri t colitis with - [facility] rectal [facility] Essential Benign Problem Common hypertensi essential Spi rit on HTN [facility] [id number] Diverticul Problem Co mmon osis Spirit [facility] [id number] Atypical Problem Comm on chest pain [facility] [id number] 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 abscess [facility] [id number] Acute pain Problem Com mon of right 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 Family History Family Member Diagnosis Comments Start Date Stop Date Source Natural father [facility] Natural mother [facility] Social History Social Habit Start Date Stop Date Quantity Comments Source History of Tobacco [facility] - Use [facility] Gender identity [facility] Alcohol intake 2016-12-27 2016-12-27 Current [facility] 00:[facility]:00 non-drinker of Hospital alcohol (finding) History of Social 2016-12-26 2016-12-[address] function 00:00:00 00:00:00 Hospital Sex Assigned At [birth year] [facility] Smoking Status Start Date Stop Date Source Former Smoker 2022-02-16 00:00:00 2022-02-16 00:00:00 Common S pirit - [facility] Medications Ordered Filled Start Stop Current Ordering Indication Dosage Frequency Signature Comments Components Source Medication Medication Date Date Medication? Clinician (SIG) Name Name Cetirizine Cetirizine 2021-04 No 1{table Cetirizine HCl 10 MG HCl 10 MG -11 t} HCl 10 MG 00:00: 00 Cetirizine Cetirizine 2021-04 No 1{table Cetirizine HCl 10 MG HCl 10 MG 11 t} HCl 10 MG 00:00: 00 Benzonatate Benzonatate 2021-04- No 1{capsu TID Benzonatat 100 MG 100 MG 04-18 le_as_n e 100 MG 00:00: 00:00 eeded} 00 :00 Benzonatate Benzonatate 2021-04- No 1{capsu TID Benzonatat 100 MG 100 MG 04-18 le_as_n e 100 MG 00:00: 00:00 eeded} 00 :00 Azithromyci Azithromyci 2021-04- No QD Azithromyc n 250 MG n 250 MG 04-18 in 250 MG 00:00: 00:00 00 :00 Azithromyci Azithromyci 2021-04- No QD Azithromyc n 250 MG n 250 MG 04-18 in 250 MG 00:00: 00:00 00 :00 Cephalexin Cephalexin 2021- No 1{capsu QID Cephalexin 500 MG 500 MG 12-04 le} 500 MG 00:00: 00:00 00 :00 Flonase Flonase 2021-0 No QD Flonase 10-16 00:00: 00 Flonase Flonase 2021-0 No QD Flonase 10-16 00:00: 00 Cetirizine Cetirizine 2018-04 2020- No Na Catalan 1 tablet Common HCl HCl 1-18 05-16 Spirit 00:00: 00:00 - [facility] 00 :00 [facility] LIDOCAINE LIDOCAINE 2019-1 No 5mL Com mon HCL 10MG/ML HCL 10MG/ML 0-21 S pirit 00:00: - [facility]I 00 [facility] Kenalog Kenalog 2019-1 No 1mL Common (Triamcinol (Triamcinol 0-21 S pirit one) one) 00:00: - [facility]I 00 [facility] LIDOCAINE LIDOCAINE 2019-1 No 5mL Com mon HCL 10MG/ML HCL 10MG/ML 0-21 S pirit 00:00: - [facility]I 00 [facility] Kenalog Kenalog 2019-1 No 1mL Common (Triamcinol (Triamcinol 0-21 S pirit one) one) 00:00: - [facility]I 00 [facility] LIDOCAINE LIDOCAINE 2019-1 No 5mL Com mon HCL 10MG/ML HCL 10MG/ML 0-21 S pirit 00:00: - [facility]I 00 [facility] Kenalog Kenalog 2019-1 No 1mL Common (Triamcinol (Triamcinol 0-21 S pirit one) one) 00:00: - [facility]I 00 [facility] LIDOCAINE LIDOCAINE 2019-1 No 5mL Com mon HCL 10MG/ML HCL 10MG/ML 0-21 S pirit 00:00: - [facility]I 00 [facility] Kenalog Kenalog 2019-1 No 1mL Common (Triamcinol (Triamcinol 0-21 S pirit one) one) 00:00: - [facility]I 00 [facility] LIDOCAINE LIDOCAINE 2019-1 No 5mL Com mon HCL 10MG/ML HCL 10MG/ML 0-21 S pirit 00:00: - [facility]I 00 [facility] Kenalog Kenalog 2019-1 No 1mL Common (Triamcinol (Triamcinol 0-21 S pirit one) one) 00:00: - [facility]I 00 [facility] LIDOCAINE LIDOCAINE 2019-1 No 5mL Com mon HCL 10MG/ML HCL 10MG/ML 0-21 S pirit 00:00: - [facility]I 00 [facility] Kenalog Kenalog 2019-1 No 1mL Common (Triamcinol (Triamcinol 0-21 S pirit one) one) 00:00: - [facility]I 00 [facility] LIDOCAINE LIDOCAINE 2019-1 No 5mL Com mon HCL 10MG/ML HCL 10MG/ML 0-21 S pirit 00:00: - [facility]I 00 [facility] Kenalog Kenalog 2019-1 No 1mL Common (Triamcinol (Triamcinol 0-21 S pirit one) one) 00:00: - [facility]I 00 [facility] LIDOCAINE LIDOCAINE 2019-1 No 5mL Com mon HCL 10MG/ML HCL 10MG/ML 0-21 S pirit 00:00: - CHI 00 [facility] Kenalog Kenalog 2019-1 No 1mL Common (Triamcinol (Triamcinol 0-21 S pirit one) one) 00:00: - [facility]I 00 [facility] LIDOCAINE LIDOCAINE 2019-1 No 5mL Com mon HCL 10MG/ML HCL 10MG/ML 0-21 S pirit 00:00: - [facility]I 00 [facility] Kenalog Kenalog 2019-1 No 1mL Common (Triamcinol (Triamcinol 0-21 S pirit one) one) 00:00: - CHI 00 [facility] LIDOCAINE LIDOCAINE 2019-1 No 5mL Com mon HCL 10MG/ML HCL 10MG/ML 0-21 S pirit 00:00: - CHI 00 [facility] Kenalog Kenalog 2019-1 No 1mL Common (Triamcinol (Triamcinol 0-21 S pirit one) one) 00:00: - CHI 00 [facility] Potassium Potassium 2019-0 2020- No Na Catalan 1 capsule Common Chloride Chloride 9-20 03-18 Spirit 00:00: 00:00 - CHI 00 :00 [facility] Clotrimazol Clotrimazol 2018- Yes Na Catalan 1 Common e-Betametha e-Betametha 1-29 applicatio Spirit sone sone 00:00: n to - [facility]I 00 affected [facility] Clotrimazol Clotrimazol 2018-1 No 1{appli BID Clotrimazo e-Betametha e-Betametha 1-29 cation_ le-Betamet sone 1-0.05 sone 1-0.05 00:00: to_affe hasone % % 00 cted_ar 1-0.05 % ea} Indomethaci Indomethaci 2017-04 Yes Na Catalan 1 capsule Common n n 0-20 Spirit 00:00: - [facility]I 00 [facility] Indomethaci Indomethaci 2017-04 No 1{capsu TID Indomethac n 50 MG n 50 MG 0-20 le} in 50 MG 00:00: 00 traMADol Yes 50mg Q6H Take 50 mg Met hodi (ULTRAM) 50 12-[address] mg tablet 12:47: every 6 Hospi ta 42 (six) l hours as needed for moderate pain (prn for pain). pravastatin Yes 20mg QD Take 20 mg [facility] (PRAVACHOL) 12-[address] 20 MG 12:47: nightly. Hospita tablet 42 l aspirin Yes 81mg QD Take 81 mg Meth maddie (ECOTRIN) 12-[address] 81 MG 12:47: daily. Hospita enteric 42 l coated tablet travoprost Yes 1[drp] QD 1 drop Met [facility]odi (TRAVATAN-Z 12-[address] ) 0.004 % 12:47: Hospita 42 l timolol Yes 1[drp] Q.5D Administer Me thodi (BETIMOL) 12-[address] 0.5 % 12:47: the right Hospita ophthalmic 42 eye 2 l solution (two) times a day. metoprolol Yes 25mg QD Take 25 mg M ethodi succinate 12-[address] XL 12:47: daily. Hospita (TOPROL-XL) 42 l 25 mg 24 hr tablet sacubitril- Yes 1{tbl} Q.5D Take 1 Me thodi valsartan 12-[address] (ENTRESTO) 12:47: mouth 2 Hosp nikolas 24-26 mg 42 (two) l tablet per times a tablet day. cholecalcif Yes 1000U QD Take 1,000 [facility] dacia, - Units by st vitamin D3, 12:47: mouth Hospi ta (VITAMIN 42 daily. l D3) 1,000 unit tablet ANTIOX Yes Take by [facility] #8/OM3/DHA/ 12-[address] EPA/LUT/MATT 12:47: Hospit a X 42 l (PRESERVISI ON AREDS 2, OMEGA-3, ORAL) BRAN/GUM/FI 2017 Yes Take by Met hodi B/ERIC/PSYL/ 12-[address] KELP/PEC 12:47: Hospita (FIBER 6 42 l ORAL) Furosemide Furosemide Yes Na Catalan 1 tablet Common [facility] Combigan Combigan Yes Na Catalan 1 drop Co mmon into Spirit affected - [facility] eye [facility] Entresto Entresto Yes Na Catalan one Comm on 24/26mg 24/26mg [facility] Pravastatin Pravastatin Yes Na Catalan 1 tablet Common Sodium Sodium [facility] Metoprolol Metoprolol Yes Na Catalan 1/2 Common Succinate [facility]cc[facility] Furosemide Furosemide Yes Na Catalan not Common defined [facility] Fiber Adult Fiber Adult Yes Na Catalan not Common Gummies Gummies defined [facility] PreserVisio PreserVisio Yes Na Catalan not Common n AREDS n AREDS defined [facility] Travatan Z Travatan Z Yes Na Catalan 1 drop Common into Spirit affected - [facility] eye in the [facility] Protonix Protonix Yes Na Catalan 1 tablet Common [facility] Aspir-81 Aspir-81 Yes Na Catalan 1 tablet Common [facility] Metoprolol Metoprolol Yes Na Catalan TAKE 1 Common Succinate Succinate TABLET BY Spirit ER ER MOUTH - [facility]I EVERY DAY [facility] Vitamin D-3 Vitamin D-3 Yes Na Catalan not Common defined [facility] Pravastatin Pravastatin No 1{table QD Pravastati Sodium 20 Sodium 20 t} n Sodium MG MG 20 MG Latanoprost Latanoprost No 1{drop_ QD Latanopros 0.005 % 0.005 % into_af t 0.005 % fected_ eye_in_ the_eve patrizia} PreserVisio PreserVisio No PreserVisi n AREDS n AREDS on AREDS Omeprazole Omeprazole No 1{capsu QD Omeprazole 40 MG 40 MG le} 40 MG Aspir-81 81 Aspir-81 81 No 1{table QD Aspir-81 MG MG t} 81 MG Metoprolol Metoprolol No Metoprolol Succinate Succinate Succinate ER 25 MG ER 25 MG ER 25 MG Furosemide Furosemide No 1{table QD Furosemide 40 MG 40 MG t} 40 MG Metoprolol Metoprolol No QD Metoprolol Succinate Succinate Succinate 25 MG 25 MG 25 MG Omeprazole Omeprazole No Omeprazole 40 MG 40 MG 40 MG Entresto Entresto No BID Entresto 49/51mg 49/51mg 49/51mg 49/51mg 49/51mg 49/51mg Potassium Potassium No 1{table BID Potassium Chloride ER Chloride ER t_with_ Chloride 20 MEQ 20 MEQ food} ER 20 MEQ Vitamin D-3 Vitamin D-3 No Vitamin D-3 Furosemide Furosemide No 1{table QD Furosemide 40 MG 40 MG t} 40 MG Pravastatin Pravastatin No 1{table QD Pravastati Sodium 20 Sodium 20 t} n Sodium MG MG 20 MG Latanoprost Latanoprost No 1{drop_ QD Latanopros 0.005 % 0.005 % into_af t 0.005 % fected_ eye_in_ the_eve patrizia} PreserVisio PreserVisio No PreserVisi n AREDS n AREDS on AREDS Omeprazole Omeprazole No 1{capsu QD Omeprazole 40 MG 40 MG le} 40 MG Aspir-81 81 Aspir-81 81 No 1{table QD Aspir-81 MG MG t} 81 MG Metoprolol Metoprolol No Metoprolol Succinate Succinate Succinate ER 25 MG ER 25 MG ER 25 MG Pravastatin Pravastatin No Pravastati Sodium 20 Sodium 20 n Sodium MG MG 20 MG Potassium Potassium No 1{table BID Potassium Chloride ER Chloride ER t_with_ Chloride 20 MEQ 20 MEQ food} ER 20 MEQ Vitamin D-3 Vitamin D-3 No Vitamin D-3 Furosemide Furosemide No Furosemide 40 MG 40 MG 40 MG Entresto Entresto No BID Entresto 49/51mg 49/51mg 49/51mg 49/51mg 49/51mg 49/51mg Metoprolol Metoprolol No QD Metoprolol Succinate Succinate Succinate 25 MG 25 MG 25 MG Furosemide Furosemide No 1{table QD Furosemide 40 MG 40 MG t} 40 MG Latanoprost Latanoprost No 1{drop_ QD Latanopros 0.005 % 0.005 % into_af t 0.005 % fected_ eye_in_ the_eve patrizia} PreserVisio PreserVisio No PreserVisi n AREDS n AREDS on AREDS Omeprazole Omeprazole No 1{capsu QD Omeprazole 40 MG 40 MG le} 40 MG Pravastatin Pravastatin No 1{table QD Pravastati Sodium 20 Sodium 20 t} n Sodium MG MG 20 MG Aspir-81 81 Aspir-81 81 No 1{table QD Aspir-81 MG MG t} 81 MG Metoprolol Metoprolol No Metoprolol Succinate Succinate Succinate ER 25 MG ER 25 MG ER 25 MG Furosemide Furosemide No Furosemide 40 MG 40 MG 40 MG Aspir-81 81 Aspir-81 81 No 1{table QD Aspir-81 MG MG t} 81 MG Potassium Potassium No 1{table BID Potassium Chloride ER Chloride ER t_with_ Chloride 20 MEQ 20 MEQ food} ER 20 MEQ Furosemide Furosemide No 1{table QD Furosemide 40 MG 40 MG t} 40 MG Pravastatin Pravastatin No 1{table QD Pravastati Sodium 20 Sodium 20 t} n Sodium MG MG 20 MG Rocklatan Rocklatan No 1{drop_ QD Rocklatan 0.02-0.005 0.02-0.005 into_af 0.02-0.005 % % fected_ % eye} Pravastatin Pravastatin No Pravastati Sodium 20 Sodium 20 n Sodium MG MG 20 MG PreserVisio PreserVisio No PreserVisi n AREDS n AREDS on AREDS Latanoprost Latanoprost No 1{drop_ QD Latanopros 0.005 % 0.005 % into_af t 0.005 % fected_ eye_in_ the_eve patrizia} Vitamin D-3 Vitamin D-3 No Vitamin D-3 Metoprolol Metoprolol No Metoprolol Succinate Succinate Succinate ER 25 MG ER 25 MG ER 25 MG Metoprolol Metoprolol No QD Metoprolol Succinate Succinate Succinate 25 MG 25 MG 25 MG Entresto Entresto No BID Entresto 49/51mg 49/51mg 49/51mg 49/51mg 49/51mg 49/51mg Omeprazole Omeprazole No 1{capsu QD Omeprazole 40 MG 40 MG le} 40 MG Pravastatin Pravastatin No Pravastati Sodium 20 Sodium 20 n Sodium MG MG 20 MG PreserVisio PreserVisio No PreserVisi n AREDS n AREDS on AREDS Furosemide Furosemide No 1{table QD Furosemide 40 MG 40 MG t} 40 MG Aspir-81 81 Aspir-81 81 No 1{table QD Aspir-81 MG MG t} 81 MG Pravastatin Pravastatin No 1{table QD Pravastati Sodium 20 Sodium 20 t} n Sodium MG MG 20 MG Metoprolol Metoprolol No Metoprolol Succinate Succinate Succinate ER 25 MG ER 25 MG ER 25 MG Rocklatan Rocklatan No 1{drop_ QD Rocklatan 0.02-0.005 0.02-0.005 into_af 0.02-0.005 % % fected_ % eye} Entresto Entresto No BID Entresto 49/51mg 49/51mg 49/51mg 49/51mg 49/51mg 49/51mg Omeprazole Omeprazole No 1{capsu QD Omeprazole 40 MG 40 MG le} 40 MG Furosemide Furosemide No Furosemide 40 MG 40 MG 40 MG Latanoprost Latanoprost No 1{drop_ QD Latanopros 0.005 % 0.005 % into_af t 0.005 % fected_ eye_in_ the_eve patrizia} Metoprolol Metoprolol No QD Metoprolol Succinate Succinate Succinate 25 MG 25 MG 25 MG Vitamin D-3 Vitamin D-3 No Vitamin D-3 Furosemide Furosemide No Furosemide 40 MG 40 MG 40 MG Aspir-81 81 - 81 No 1{table QD Aspir-81 MG MG t} 81 MG Metoprolol Metoprolol No QD Metoprolol Succinate Succinate Succinate 25 MG 25 MG 25 MG Furosemide Furosemide No 1{table QD Furosemide 40 MG 40 MG t} 40 MG Metoprolol Metoprolol No Metoprolol Succinate Succinate Succinate ER 25 MG ER 25 MG ER 25 MG Rocklatan Rocklatan No 1{drop_ QD Rocklatan 0.02-0.005 0.02-0.005 into_af 0.02-0.005 % % fected_ % eye} PreserVisio PreserVisio No PreserVisi n AREDS n AREDS on AREDS Omeprazole Omeprazole No 1{capsu QD Omeprazole 40 MG 40 MG le} 40 MG Vitamin D-3 Vitamin D-3 No Vitamin D-3 Latanoprost Latanoprost No 1{drop_ QD Latanopros 0.005 % 0.005 % into_af t 0.005 % fected_ eye_in_ the_eve patrizia} Pravastatin Pravastatin No Pravastati Sodium 20 Sodium 20 n Sodium MG MG 20 MG Entresto Entresto No BID Entresto 49/51mg 49/51mg 49/51mg 49/51mg 49/51mg 49/51mg Furosemide Furosemide No 1{table QD Furosemide 40 MG 40 MG t} 40 MG Entresto Entresto No BID Entresto 49/51mg 49/51mg 49/51mg 49/51mg 49/51mg 49/51mg Latanoprost Latanoprost No 1{drop_ QD Latanopros 0.005 % 0.005 % into_af t 0.005 % fected_ eye_in_ the_eve patrizia} Vitamin D-3 Vitamin D-3 No Vitamin D-3 Omeprazole Omeprazole No 1{capsu QD Omeprazole 40 MG 40 MG le} 40 MG Pravastatin Pravastatin No Pravastati Sodium 20 Sodium 20 n Sodium MG MG 20 MG Potassium Potassium No 1{table BID Potassium Chloride ER Chloride ER t_with_ Chloride 20 MEQ 20 MEQ food} ER 20 MEQ Pravastatin Pravastatin No 1{table QD Pravastati Sodium 20 Sodium 20 t} n Sodium MG MG 20 MG Furosemide Furosemide No Furosemide 40 MG 40 MG 40 MG Metoprolol Metoprolol No QD Metoprolol Succinate Succinate Succinate 25 MG 25 MG 25 MG Metoprolol Metoprolol No Metoprolol Succinate Succinate Succinate ER 25 MG ER 25 MG ER 25 MG Aspir-81 81 Aspir-81 81 No 1{table QD Aspir-81 MG MG t} 81 MG PreserVisio PreserVisio No PreserVisi n AREDS n AREDS on AREDS [facility] No 1{drop_ QD Centereachlatan 0.02-0.005 0.02-0.005 into_af 0.02-0.005 % % fected_ % eye} [facility] No 1{drop_ QD Rocklatan 0.02-0.005 0.02-0.005 into_af 0.02-0.005 % % fected_ % eye} Metoprolol Metoprolol No QD Metoprolol Succinate Succinate Succinate 25 MG 25 MG 25 MG Vitamin D-3 Vitamin D-3 No Vitamin D-3 Omeprazole Omeprazole No 1{capsu QD Omeprazole 40 MG 40 MG le} 40 MG Latanoprost Latanoprost No 1{drop_ QD Latanopros 0.005 % 0.005 % into_af t 0.005 % fected_ eye_in_ the_eve patrizia} Aspir-81 81 Aspir-81 81 No 1{table QD Aspir-81 MG MG t} 81 MG Potassium Potassium No 1{table BID Potassium Chloride ER Chloride ER t_with_ Chloride 20 MEQ 20 MEQ food} ER 20 MEQ Furosemide Furosemide No 1{table QD Furosemide 40 MG 40 MG t} 40 MG Entresto Entresto No BID Entresto 49/51mg 49/51mg 49/51mg 49/51mg 49/51mg 49/51mg Metoprolol Metoprolol No Metoprolol Succinate Succinate Succinate ER 25 MG ER 25 MG ER 25 MG PreserVisio PreserVisio No PreserVisi n AREDS n AREDS on AREDS Pravastatin Pravastatin No Pravastati Sodium 20 Sodium 20 n Sodium MG MG 20 MG Fluticasone Fluticasone No Fluticason Propionate Propionate e 50 MCG/ACT 50 MCG/ACT Propionate 50 MCG/ACT Pravastatin Pravastatin No 1{table QD Pravastati Sodium 20 Sodium 20 t} n Sodium MG MG 20 MG Furosemide Furosemide No Furosemide 40 MG 40 MG 40 MG Aspir-81 81 Aspir-81 81 No 1{table QD Aspir-81 MG MG t} 81 MG PreserVisio PreserVisio No PreserVisi n AREDS n AREDS on AREDS Metoprolol Metoprolol No QD Metoprolol Succinate Succinate Succinate 25 MG 25 MG 25 MG Potassium Potassium No 1{table BID Potassium Chloride ER Chloride ER t_with_ Chloride 20 MEQ 20 MEQ food} ER 20 MEQ Rocklatan Rocklatan No 1{drop_ QD Rocklatan 0.02-0.005 0.02-0.005 into_af 0.02-0.005 % % fected_ % eye} Entresto Entresto No BID Entresto 49/51mg 49/51mg 49/51mg 49/51mg 49/51mg 49/51mg Omeprazole Omeprazole No 1{capsu QD Omeprazole 40 MG 40 MG le} 40 MG Pravastatin Pravastatin No 1{table QD Pravastati Sodium 20 Sodium 20 t} n Sodium MG MG 20 MG Furosemide Furosemide No Furosemide 40 MG 40 MG 40 MG Latanoprost Latanoprost No 1{drop_ QD Latanopros 0.005 % 0.005 % into_af t 0.005 % fected_ eye_in_ the_eve patrizia} Pravastatin Pravastatin No Pravastati Sodium 20 Sodium 20 n Sodium MG MG 20 MG Furosemide Furosemide No 1{table QD Furosemide 40 MG 40 MG t} 40 MG Metoprolol Metoprolol No Metoprolol Succinate Succinate Succinate ER 25 MG ER 25 MG ER 25 MG Vitamin D-3 Vitamin D-3 No Vitamin D-3 Fluticasone Fluticasone No Fluticason Propionate Propionate e 50 MCG/ACT 50 MCG/ACT Propionate 50 MCG/ACT Pravastatin Pravastatin No 1{table QD Pravastati Sodium 20 Sodium 20 t} n Sodium MG MG 20 MG Rocklatan Rocklatan No 1{drop_ QD Rocklatan 0.02-0.005 0.02-0.005 into_af 0.02-0.005 % % fected_ % eye} PreserVisio PreserVisio No PreserVisi n AREDS n AREDS on AREDS Metoprolol Metoprolol No Metoprolol Succinate Succinate Succinate ER 25 MG ER 25 MG ER 25 MG Pravastatin Pravastatin No Pravastati Sodium 20 Sodium 20 n Sodium MG MG 20 MG Furosemide Furosemide No Furosemide 40 MG 40 MG 40 MG Potassium Potassium No 1{table BID Potassium Chloride ER Chloride ER t_with_ Chloride 20 MEQ 20 MEQ food} ER 20 MEQ Entresto Entresto No BID Entresto 49/51mg 49/51mg 49/51mg 49/51mg 49/51mg 49/51mg Aspir-81 81 Aspir-81 81 No 1{table QD Aspir-81 MG MG t} 81 MG Furosemide Furosemide No 1{table QD Furosemide 40 MG 40 MG t} 40 MG Omeprazole Omeprazole No 1{capsu QD Omeprazole 40 MG 40 MG le} 40 MG Latanoprost Latanoprost No 1{drop_ QD Latanopros 0.005 % 0.005 % into_af t 0.005 % fected_ eye_in_ the_eve patrizia} Fluticasone Fluticasone No Fluticason Propionate Propionate e 50 MCG/ACT 50 MCG/ACT Propionate 50 MCG/ACT Vitamin D-3 Vitamin D-3 No Vitamin D-3 Metoprolol Metoprolol No QD Metoprolol Succinate Succinate Succinate 25 MG 25 MG 25 MG Entresto Entresto No BID Entresto 49/51mg 49/51mg 49/51mg 49/51mg 49/51mg 49/51mg Aspir-81 81 Aspir-81 81 No 1{table QD Aspir-81 MG MG t} 81 MG Pravastatin Pravastatin No Pravastati Sodium 20 Sodium 20 n Sodium MG MG 20 MG PreserVisio PreserVisio No PreserVisi n AREDS n AREDS on AREDS Metoprolol Metoprolol No Metoprolol Succinate Succinate Succinate ER 25 MG ER 25 MG ER 25 MG Latanoprost Latanoprost No 1{drop_ QD Latanopros 0.005 % 0.005 % into_af t 0.005 % fected_ eye_in_ the_eve patrizia} Potassium Potassium No 1{table BID Potassium Chloride ER Chloride ER t_with_ Chloride 20 MEQ 20 MEQ food} ER 20 MEQ Vitamin D-3 Vitamin D-3 No Vitamin D-3 Metoprolol Metoprolol No QD Metoprolol Succinate Succinate Succinate 25 MG 25 MG 25 MG Rocklatan Rocklatan No 1{drop_ QD Rocklatan 0.02-0.005 0.02-0.005 into_af 0.02-0.005 % % fected_ % eye} Furosemide Furosemide No Furosemide 40 MG 40 MG 40 MG Fluticasone Fluticasone No Fluticason Propionate Propionate e 50 MCG/ACT 50 MCG/ACT Propionate 50 MCG/ACT Omeprazole Omeprazole No 1{capsu QD Omeprazole 40 MG 40 MG le} 40 MG Pravastatin Pravastatin No 1{table QD Pravastati Sodium 20 Sodium 20 t} n Sodium MG MG 20 MG Furosemide Furosemide No 1{table QD Furosemide 40 MG 40 MG t} 40 MG Entresto Entresto No BID Entresto 49/51mg 49/51mg 49/51mg 49/51mg 49/51mg 49/51mg Potassium Potassium No 1{table BID Potassium Chloride ER Chloride ER t_with_ Chloride 20 MEQ 20 MEQ food} ER 20 MEQ Metoprolol Metoprolol No QD Metoprolol Succinate Succinate Succinate 25 MG 25 MG 25 MG PreserVisio PreserVisio No PreserVisi n AREDS n AREDS on AREDS Furosemide Furosemide No Furosemide 40 MG 40 MG 40 MG Fluticasone Fluticasone No Fluticason Propionate Propionate e 50 MCG/ACT 50 MCG/ACT Propionate 50 MCG/ACT Latanoprost Latanoprost No 1{drop_ QD Latanopros 0.005 % 0.005 % into_af t 0.005 % fected_ eye_in_ the_eve patrizia} Vitamin D-3 Vitamin D-3 No Vitamin D-3 Metoprolol Metoprolol No Metoprolol Succinate Succinate Succinate ER 25 MG ER 25 MG ER 25 MG Rocklatan Rocklatan No 1{drop_ QD Rocklatan 0.02-0.005 0.02-0.005 into_af 0.02-0.005 % % fected_ % eye} Pravastatin Pravastatin No Pravastati Sodium 20 Sodium 20 n Sodium MG MG 20 MG Omeprazole Omeprazole No 1{capsu QD Omeprazole 40 MG 40 MG le} 40 MG Pravastatin Pravastatin No 1{table QD Pravastati Sodium 20 Sodium 20 t} n Sodium MG MG 20 MG Aspir-81 81 Aspir-81 81 No 1{table QD Aspir-81 MG MG t} 81 MG Furosemide Furosemide No 1{table QD Furosemide 40 MG 40 MG t} 40 MG Entresto Entresto No BID Entresto 49/51mg 49/51mg 49/51mg 49/51mg 49/51mg 49/51mg Potassium Potassium No 1{table BID Potassium Chloride ER Chloride ER t_with_ Chloride 20 MEQ 20 MEQ food} ER 20 MEQ Metoprolol Metoprolol No QD Metoprolol Succinate Succinate Succinate 25 MG 25 MG 25 MG PreserVisio PreserVisio No PreserVisi n AREDS n AREDS on AREDS Furosemide Furosemide No Furosemide 40 MG 40 MG 40 MG Fluticasone Fluticasone No Fluticason Propionate Propionate e 50 MCG/ACT 50 MCG/ACT Propionate 50 MCG/ACT Latanoprost Latanoprost No 1{drop_ QD Latanopros 0.005 % 0.005 % into_af t 0.005 % fected_ eye_in_ the_eve patrizia} Vitamin D-3 Vitamin D-3 No Vitamin D-3 Metoprolol Metoprolol No Metoprolol Succinate Succinate Succinate ER 25 MG ER 25 MG ER 25 MG Rocklatan Rocklatan No 1{drop_ QD Rocklatan 0.02-0.005 0.02-0.005 into_af 0.02-0.005 % % fected_ % eye} Pravastatin Pravastatin No Pravastati Sodium 20 Sodium 20 n Sodium MG MG 20 MG Omeprazole Omeprazole No 1{capsu QD Omeprazole 40 MG 40 MG le} 40 MG Pravastatin Pravastatin No 1{table QD Pravastati Sodium 20 Sodium 20 t} n Sodium MG MG 20 MG Aspir-81 81 Aspir-81 81 No 1{table QD Aspir-81 MG MG t} 81 MG Metoprolol Metoprolol No Metoprolol Succinate Succinate Succinate ER 25 MG ER 25 MG ER 25 MG Potassium Potassium No 1{table BID Potassium Chloride ER Chloride ER t_with_ Chloride 20 MEQ 20 MEQ food} ER 20 MEQ Pravastatin Pravastatin No Pravastati Sodium 20 Sodium 20 n Sodium MG MG 20 MG Cetirizine Cetirizine No 1{table QD Cetirizine HCl 10 MG HCl 10 MG t} HCl 10 MG Omeprazole Omeprazole No 1{capsu QD Omeprazole 40 MG 40 MG le} 40 MG Fiber Adult Fiber Adult No Fiber Gummies Gummies Adult Gummies Furosemide Furosemide No 1{table QD Furosemide 40 MG 40 MG t} 40 MG Aspir-81 81 Aspir-81 81 No 1{table QD Aspir-81 MG MG t} 81 MG Combigan Combigan No 1{drop_ BID Combigan 0.2-0.5 % 0.2-0.5 % into_af 0.2-0.5 % fected_ eye} Pravastatin Pravastatin No 1{table QD Pravastati Sodium 20 Sodium 20 t} n Sodium MG MG 20 MG PreserVisio PreserVisio No PreserVisi n AREDS n AREDS on AREDS Furosemide Furosemide No Furosemide Metoprolol Metoprolol No QD Metoprolol Succinate Succinate Succinate 25 MG 25 MG 25 MG Travatan Z Travatan Z No 1{drop_ QD Travatan Z 0.004 % 0.004 % into_af 0.004 % fected_ eye_in_ the_eve patrizia} Entresto Entresto No BID Entresto 49/51mg 49/51mg 49/51mg 49/51mg 49/51mg 49/51mg Furosemide Furosemide No Furosemide 40 MG 40 MG 40 MG Omeprazole Omeprazole No Omeprazole 40 MG 40 MG 40 MG Vitamin D-3 Vitamin D-3 No Vitamin D-3 Entresto Entresto No BID Entresto 24/26mg 24/26mg 24/26mg 24/26mg 24/26mg 24/26mg Furosemide Furosemide No 1{table QD Furosemide 40 MG 40 MG t} 40 MG Metoprolol Metoprolol No QD Metoprolol Succinate Succinate Succinate 25 MG 25 MG 25 MG Omeprazole Omeprazole No Omeprazole 40 MG 40 MG 40 MG Entresto Entresto No BID Entresto 49/51mg 49/51mg 49/51mg 49/51mg 49/51mg 49/51mg Potassium Potassium No 1{table BID Potassium Chloride ER Chloride ER t_with_ Chloride 20 MEQ 20 MEQ food} ER 20 MEQ Vitamin D-3 Vitamin D-3 No Vitamin D-3 Furosemide Furosemide No 1{table QD Furosemide 40 MG 40 MG t} 40 MG Potassium Potassium No 1{table BID Potassium Chloride ER Chloride ER 10-30 t_with_ Chloride 20 MEQ 20 MEQ 00:00 food} ER 20 MEQ :00 Potassium Potassium 2021- No 1{table BID Potassium Chloride ER Chloride ER 10-30 t_with_ Chloride 20 MEQ 20 MEQ 00:00 food} ER 20 MEQ :00 Immunizations Ordered Immunization Filled Immunization Date Status Commen ts Source Name Name FluAD FluAD 2021-01-20 [facility]:00 - [facility] FluAD FluAD 2021-01-20 [facility] 13:52:00 - [facility] FluAD FluAD 2021-01-20 Completed [facility] 13:52:00 - [facility] FluAD FluAD 2021-01-20 Completed [facility] 13:52:00 - [facility] FluAD FluAD 2021-01-20 Completed [facility] 13:52:00 - [facility] FluAD FluAD 2021-01-20 Completed [facility] 13:52:00 - [facility] FluAD FluAD 2021-01-20 Completed [facility] 13:52:00 - [facility] FluAD FluAD 2021-01-20 Completed [facility] 13:52:00 - [facility] FluAD FluAD 2021-01-20 Completed [facility] 13:52:00 - [facility] FluAD FluAD 2021-01-20 Completed [facility] 13:52:00 - [facility] FluAD FluAD 2021-01-20 Completed [facility] 13:52:00 - [facility] FluAD FluAD 2021-01-20 Completed [facility] 13:52:00 - [facility] FluAD FluAD 2021-01-20 Completed [facility] 13:52:00 - [facility] FluAD FluAD 2021-01-20 Completed [facility] 13:52:00 - [facility] FluAD FluAD 2020-01-18 Completed [facility] 10:12:00 - [facility] FluAD FluAD 2020-01-18 Completed [facility] 10:12:00 - [facility] FluAD FluAD 2020-01-18 Completed [facility] 10:12:00 - [facility] FluAD FluAD 2020-01-18 Completed [facility] 10:12:00 - [facility] FluAD FluAD 2020-01-18 Completed [facility] 10:12:00 - [facility] FluAD FluAD 2020-01-18 Completed [facility] 10:12:00 - [facility] FluAD FluAD 2020-01-18 Completed [facility] 10:12:00 - [facility] FluAD FluAD 2020-01-18 Completed [facility] 10:12:00 - [facility] FluAD FluAD 2020-01-18 Completed [facility] 10:12:00 - [facility] FluAD FluAD 2020-01-18 Completed [facility] 10:12:00 - [facility] FluAD FluAD 2020-01-18 Completed [facility] 10:12:00 - [facility] FluAD FluAD 2020-01-18 Completed [facility] 10:12:00 - [facility] FluAD FluAD 2020-01-18 Completed [facility] 10:12:00 - [facility] FluAD FluAD 2020-01-18 Completed [facility] 10:12:00 - [facility] LIDOCAINE HCL LIDOCAINE HCL 2019-01-26 [facility] 10MG/ML 10MG/ML 12:04:00 - [facility] LIDOCAINE HCL LIDOCAINE HCL 2019-01-26 [facility] 10MG/ML 10MG/ML 12:04:00 - [facility] LIDOCAINE HCL LIDOCAINE HCL 2019-01-26 [facility] 10MG/ML 10MG/ML 12:04: - [facility] Rick Cabrera 2019-01-26 Completed [facility] (Triamcinolone) (Triamcinolone) 12:03:00 - [facility] Rick Cabrera 2019-01-26 Completed [facility] (Triamcinolone) (Triamcinolone) 12:03:00 [facility] Rick Cabrera 2019-01-26 Completed [facility] (Triamcinolone) (Triamcinolone) 12:03:00 - [facility] FluAD FluAD 2018-12-23 Completed [facility] 12:13:00 - [facility] FluAD FluAD 2018-12-23 Completed [facility] 12:13:00 - [facility] FluAD FluAD 2018-12-23 Completed [facility] 12:13:00 - [facility] FluAD FluAD 2018-12-23 Completed [facility] 12:13:00 - [facility] FluAD FluAD 2018-12-23 Completed [facility] 12:13:00 - [facility] FluAD FluAD 2018-12-23 Completed [facility] 12:13:00 - [facility] FluAD FluAD 2018-12-23 Completed [facility] 12:13:00 - [facility] FluAD FluAD 2018-12-23 Completed [facility] 12:13:00 - [facility] FluAD FluAD 2018-12-23 Completed [facility] 12:13:00 - [facility] FluAD FluAD 2018-12-23 Completed [facility] 12:13:00 - [facility] FluAD FluAD 2018-12-23 Completed [facility] 12:13:00 - [facility] FluAD FluAD 2018-12-23 Completed [facility] 12:13:00 - [facility] FluAD FluAD 2018-12-23 Completed [facility] 12:13:00 - [facility] FluAD FluAD 2018-12-23 Completed [facility] 12:13:00 - [facility] FluAD FluAD 2018-12-23 Completed [facility] 00:00:00 - [facility] FluAD FluAD 2018-01-06 Completed [facility] 09:04:00 - [facility] FluAD FluAD 2018-01-06 Completed [facility] 09:04:00 - [facility] FluAD FluAD 2018-01-06 Completed [facility] 09:04:00 - [facility] FluAD FluAD 2018-01-06 Completed [facility] 09:04:00 - [facility] FluAD FluAD 2018-01-06 Completed [facility] 09:04:00 - [facility] FluAD FluAD 2018-01-06 Completed [facility] 09:04:00 - [facility] FluAD FluAD 2018-01-06 Completed [facility] 09:04:00 - [facility] FluAD FluAD 2018-01-06 Completed [facility] 09:04:00 - [facility] FluAD FluAD 2018-01-06 Completed [facility] 09:04:00 - [facility] FluAD FluAD 2018-01-06 Completed [facility] 09:04:00 - [facility] FluAD FluAD 2018-01-06 Completed [facility] 09:04:00 - [facility] FluAD FluAD 2018-01-06 Completed [facility] 09:04:00 - [facility] FluAD FluAD 2018-01-06 Completed [facility] 09:04:00 - [facility] FluAD FluAD 2018-01-06 Completed [facility] 09:04:00 - [facility] FluAD FluAD 2018-01-06 Completed [facility] 00:00:00 - [facility] Vital Signs Vital Name Observation Time Observation Value Comments Source height 2022-02-16 08:20:00 65.00 [in_i] [facility] weight 2022-02-16 08:20:00 153 [lb_av] [facility] bmi 2022-02-16 08:20:00 25.46 kg/m2 [facility] height 2022-02-16 09:00:00 65.00 [in_i] [facility] weight 2022-02-16 09:00:00 153 [lb_av] [facility] temperature 2022-02-16 09:00:00 98.4 [degF] [facility] bmi 2022-02-16 09:00:00 25.46 kg/m2 [facility] height 2021-12-12 10:20:00 65.00 [in_i] [facility] weight 2021-12-12 10:20:00 159.6 [lb_av] [facility] temperature 2021-12-12 10:20:00 97.5 [degF] [facility] 2021-12-12 10:20:00 26.56 kg/m2 [facility] oximetry 2021-12-12 10:20:00 98 % [facility] respiratory rate 2021-12-12 10:20:00 16 /min Comm on [facility] blood pressure 2021-12-12 10:20:00 139 mm[Hg] [facility] - systolic [facility] blood pressure 2021-12-12 10:20:00 64 mm[Hg] [facility] diastolic [facility] height 2021-12-04 10:00:00 65.00 [in_i] [facility] weight 2021-12-04 10:00:00 161.4 [lb_av] [facility] temperature 2021-12-04 10:00:00 97.8 [degF] [facility] bmi 2021-12-04 10:00:00 26.86 kg/m2 [facility] oximetry 2021-12-04 10:00:00 98 % [facility] respiratory rate 2021-12-04 10:00:00 16 /min Comm on [facility] blood pressure 2021-12-04 10:00:00 137 mm[Hg] [facility] - systolic [facility] blood pressure 2021-12-04 10:00:00 65 mm[Hg] [facility] - diastolic [facility] height 2021-10-30 09:40:00 65.00 [in_i] Common [facility] weight 2021-10-30 09:40:00 159.0 [lb_av] [facility] temperature 2021-10-30 09:40:00 97.3 [degF] Common [facility] bmi 2021-10-30 09:40:00 26.46 kg/m2 [facility] oximetry 2021-10-30 09:40:00 97 % Common [facility] respiratory rate 2021-10-30 09:40:00 15 /min Comm on [facility] blood pressure 2021-10-30 09:40:00 119 mm[Hg] Common [facility] - systolic [facility] blood pressure 2021-10-30 09:40:00 58 mm[Hg] Common [facility] - diastolic [facility] height 2021-07-31 09:40:00 65.00 [in_i] [facility] weight 2021-07-31 09:40:00 157.8 [lb_av] [facility] temperature 2021-07-31 09:40:00 97.3 [degF] [facility] bmi 2021-07-31 09:40:00 26.26 kg/m2 [facility] oximetry 2021-07-31 09:40:00 98 % [facility] respiratory rate 2021-07-31 09:40:00 16 /min Comm on [facility] blood pressure 2021-07-31 09:40:00 137 mm[Hg] Common [facility] - systolic [facility] blood pressure 2021-07-31 09:40:00 65 mm[Hg] [facility] - diastolic [facility] height 2021-01-24 10:00:00 65.00 [in_i] [facility] weight 2021-01-24 10:00:00 155 [lb_av] [facility] temperature 2021-01-24 10:00:00 97.4 [degF] [facility] bmi 2021-01-24 10:00:00 25.79 kg/m2 [facility] oximetry 2021-01-24 10:00:00 98 % [facility] respiratory rate 2021-01-24 10:00:00 20 /min [facility] on [facility] blood pressure 2021-01-24 10:00:00 129 mm[Hg] [facility] systolic [facility] blood pressure 2021-01-24 10:00:00 61 mm[Hg] [facility] diastolic [facility] Procedures This patient has no known procedures. Plan of Care Planned Activity Planned Date Details Comments Source Future Scheduled 2022-11-10 COVID-19 VACCINE (#1) [facility] Test 02:19:43 [code = COVID-19 VACCINE (#1)] Future Scheduled 2022-11-10 SHINGLES VACCINES (1 Met [facility] Test 02:19:43 of 2) [code = SHINGLES VACCINES (1 of 2)] Future Scheduled 2022-11-10 65+ PNEUMOCOCCAL Methodi [facility] Test 02:19:43 VACCINE (1 - PCV) [code = 65+ PNEUMOCOCCAL VACCINE (1 - PCV)] Future Scheduled 2022-11-10 INFLUENZA VACC[address] Method [facility] Test 02:19:43 [code = INFLUENZA VACCINE] Encounters Start End Encounter Admission Attending Care Care Encounter Source Date/Time Date/Time Type Type Clinicians Facility Department ID 2022-11-[address] [facility] [id number] 10:22:00 Esha [id number] [facility] 2022-11-01 Outpatient To, STLMLC STLMLC [id number] [facility] 13:51:00 Esha [id number] [facility] 2022-07-20 Outpatient To, STLMLC STLMLC [id number] Common 13:38:00 Esha [id number] [facility] 2022-07-11 Outpatient To, STLMLC STLMLC [id number] Common 09:24:00 Esha [id number] [facility] 2022-05-21 Outpatient To, STLMLC STLMLC [id number] Common 09:43:00 Esha [id number] [facility] 2022-02-13 Outpatient Catalan, Na STLMLC STLMLC [id number] Common 08:27:00 [id number] [facility] 2021-05-03 Outpatient Catalan, Na STLMLC STLMLC [id number] Common 14:37:04 [facility] 2021-05-03 Outpatient Catalan, Na STLMLC STLMLC [id number] Common 12:51:48 [id number] [facility] 2021-05-03 Outpatient Catalan, Na STLMLC STLMLC [id number] Common 11:53:09 [id number] [facility] 2021-05-03 Outpatient Catalan, Na STLMLC STLMLC [id number] Common 11:50:45 [id number] [facility] 2021-05-03 Outpatient Catalan, Na STLMLC STLMLC [id number] Common 11:17:10 [id number] [facility] 2021-05-03 Outpatient Catalan, Na STLMLC STLMLC [id number] [facility] 11:11:27 [id number] [facility] 2022-02-16 2022-02-16 OL DIG E/M STLMLC STLMLC [id number] [facility] 00:00:00 00:00:00 SVC 21+ [facility] 2022-02-162022-02-16 SUB ANNUAL STLMLC STLMLC [id number] [facility] 00:00:00 00:00:00 MCR [facility] VISIT [facility] 2022-02-14 2022-02-14 (TEL) STLMLC STLMLC [id number] Co mmon 00:00:00 00:00:00 [facility] 2021-12-12 2021-12-12 OFFICE STLMLC STLMLC [id number] Co mmon 00:00:00 00:00:00 VISIT EST Spir [facility] PT LEVEL 3 [facility] 2021-12-04 2021-12-04 OFFICE STLMLC STLMLC [id number] Co mmon 00:00:00 00:00:00 VISIT EST Spir it PT LEVEL 3 [facility] 2021-11-28 2021-11-28 (TEL) STLMLC STLMLC [id number] Co mmon 00:00:00 00:00:00 [facility] 2021-10-30 2021-10-30 OFFICE STLMLC STLMLC [id number] Co m[facility] 00:00:00 00:00:00 VISIT EST Spir it PT LEVEL 3 [facility] 2021-10-16 2021-10-16 (TEL) STLMLC STLMLC [id number] [facility] 00:00:00 00:00:00 [facility] 2021-08-08 2021-08-08 (TEL) STLMLC STLMLC [id number] Co m[facility] 00:00:00 00:00:00 [facility] 2021-07-31 2021-07-31 OFFICE STLMLC STLMLC [id number] [facility] 00:00:00 00:00:00 VISIT [facility] PT LEVEL 3 [facility] 2021-04-25 2021-04-25 OL DIG E/M STLMLC STLMLC [id number] [facility] 00:00:00 00:00:00 [facility] [id number] Spir it MIN [facility] 2021-01-25 2021-01-25 (TEL) STLMLC STLMLC [id number] Co mmon 00:00:00 00:00:00 [facility] 2021-01-24 2021-01-24 OFFICE STLMLC STLMLC [id number] Co mmon 00:00:00 00:00:00 VISIT [facility] 4 [facility] 2021-01-20 2021-01-20 ([place]) Nurse STLMLC STLMLC [id number] Common 00:00:00 00:00:00 Visit [facility] 2020-12-01 2020-12-01 Outpatient STLMLC STLMLC [id number] [facility] 00:00:00 00:00:00 [facility] 2020-10-20 2020-10-20 Outpatient STLMLC STLMLC [id number] [facility] 00:00:00 00:00:00 [facility] 2020-10-20 2020-10-20 Outpatient STLMLC STLMLC [id number] [facility] 00:00:00 00:00:00 [facility] 2020-08-22 2020-08-22 Outpatient STLMLC STLMLC [id number] [facility] 00:00:00 00:00:00 [facility] 2020-07-21 2020-07-21 Outpatient STLMLC STLMLC [id number] [facility] 00:00:00 00:00:00 [facility] 2020-04-19 2020-04-19 Outpatient STLMLC STLMLC [id number] [facility] 00:00:00 00:00:00 [facility] 2020-01-18 2020-01-18 Outpatient STLMLC STLMLC [id number] [facility] 00:00:00 00:00:00 [facility] 2019-02-23 2019-02-23 [id number] [facility] 10:20:00 10:20:00 [facility] [employer] [facility] 2018-12-26 2018-12-26 [facility] [id number] [facility] 10:31:00 10:31:00 [facility] [employer] [address] [facility] 2018-12-23 2018-12-23 [facility] [id number] [facility] 10:00:00 10:00:[address] [facility] [facility] 2018-12-03 2018-12-03 [facility] [id number] [facility] 16:31:00 16:31:[address] [facility] [facility] 2018-11-21 2018-11-21 [facility] [id number] Common 09:40:00 09:40:[address] [facility] [facility] 2018-11-10 2018-11-10 [facility] [id number] [facility] 08:59:00 08:59:[address] [facility] [facility] 2018-09-08 2018-09-08 [facility] [id number] [facility] 09:40:00 09:40:[address] [facility] [facility] 2018-07-08 2018-07-08 [facility] [id number] [facility] 10:00:00 10:00:[address] [facility] [facility] 2018-06-30 2018-06-30 [facility] [id number] [facility] 10:00:00 10:00:[address] [facility] [facility] 2018-06-29 2018-06-29 [facility] [id number] [facility] 12:25:00 12:25:[address] [facility] [address] [facility] [address] [facility] 2018-06-27 2018-06-27 [facility] [id number] [facility] 11:00:00 11:00:[address] [facility] [facility] 2018-06-06 2018-06-06 [facility] [id number] [facility] 10:45:00 10:45:[address] [facility] 2018-04-11 2018-04-11 [facility] [id number] [facility] 14:13:00 14:13:[address] [facility] [facility] [address] [facility] 2018-03-06 2018-03-06 [facility] [id number] [facility] 15:30:00 15:30:[address] [facility] [facility] [address] [facility] 2018-01-06 2018-01-06 [facility] [id number] [facility] 09:45:00 09:45:[address] [facility] [facility] 2017-12-05 2017-12-05 [facility] [id number] [facility] 14:15:00 14:15:[address] [facility] [facility] 2017-10-17 2017-10-17 [facility] [id number] [facility] 14:30:00 14:30:[address] [facility] 2017-09-04 2017-09-04 [facility] [id number] [facility] 09:30:00 09:30:[address] [facility] Results This patient has no known results.
[2022-11-29] MEDS ORDERED: TDAP (DIPHTH,PERTUSS(ACELL),TET VAC) 0.5 ML VIAL IMVAC ONE (13:18)
--- NOTE | 2022-11-29 13:22 | EDPHYS ---
Physician Documentation [facility] Name: Elvis Church Age: 87 yrs Sex: Male : 1935 Arrival Date: 11/29/2022 Time: 12:46 Bed 11 Private MD: ED Physician Moisés Dawson HPI: 11/29 13:38 This 87 yrs old Male presents to ER via Ambulatory with complaints of Hand rt Injury. 13:38 Patient presents to the ED with an injury to his left hand. Patient states that he was rt loading a water into a shopping cart, when it slipped, his skin got pinched between the 2 objects causing a skin tear. Denies deeper injury. Denies other acute complaints at this time. Symptoms are mild in severity, no other aggravating or alleviating factors. Historical: - Allergies: 12:58 No Known Allergies; hb - PMHx: 12:58 CHF; Glaucoma; High Cholesterol; Hypertension; hb - Immunization history:: Adult Immunizations up to date. - Social history:: Smoking status: Patient denies any tobacco usage or history of. - Family history:: not pertinent. ROS: 13:38 Constitutional: Negative for fever, chills, and weight loss, Cardiovascular: Negative rt for chest pain, palpitations, and edema, Respiratory: Negative for shortness of breath, cough, wheezing, and pleuritic chest pain, Abdomen/GI: Negative for abdominal pain, nausea, vomiting, diarrhea, and constipation, MS/Extremity: Negative for injury and deformity, Neuro: Negative for headache, weakness, numbness, tingling, and seizure, Psych: Negative for depression, anxiety, suicide ideation, homicidal ideation, and hallucinations. 13:38 Skin: Positive for laceration(s), Negative for abrasions. Exam: 13:38 Constitutional: This is a well developed, well nourished patient who is awake, alert, rt and in no acute distress. Head/Face: Normocephalic, atraumatic. Neck: Trachea midline, no thyromegaly or masses palpated, and no cervical lymphadenopathy. Supple, full range of motion without nuchal rigidity, or vertebral point tenderness. No Meningismus. MS/ Extremity: Pulses equal, no cyanosis. Neurovascular intact. Full, normal range of motion. Neuro: Awake and alert, GCS 15, oriented to person, place, time, and situation. Cranial nerves II-XII grossly intact. Motor strength 5/5 in all extremities. Sensory grossly intact. Cerebellar exam normal. Normal gait. 13:38 Skin: Skin tear to the dorsum of the left hand, about 4 cm in length, no active bleeding. Vital Signs: 12:56 BP 145 / 98; Pulse 69; Resp 16; Temp 98.1; Pulse Ox 100% on R/A; Weight 69.85 kg; hb Height 5 ft. 5 in. ; Pain 5/10; 12:56 Body Mass Index 25.63 (69.85 kg, 165.1 cm) hb 12:56 Pain Scale: Adult hb Laceration: 13:38 Wound Repair of 4cm ( 1.6in ) subcutaneous laceration to left hand. Linear shaped.. rt Distal neuro/vascular/tendon intact. Wound prep: Moderate cleansing by nurse. Skin closed with steri strips steri strips using steri strips. Dressed with non-adherent dressing. Patient tolerated well. MDM: 12:56 Patient medically screened. rt 13:38 Differential diagnosis: Skin tear, laceration. Data reviewed: vital signs, nurses rt notes. I considered the following discharge prescriptions or medication management in the emergency department Medications were administered in the Emergency Department. See MAR. Test considered but Not performed: X-ray: Patient is clear that the skin was only pinched, no deeper injuries are suspected, no focal tenderness on the hand, no bony abnormalities. Very low suspicion for a fracture, x-ray not indicate. Counseling: I had a detailed discussion with the patient and/or guardian regarding the historical points, exam findings, and any diagnostic results supporting the discharge/admit diagnosis, the need for outpatient follow up, to return to the emergency department if symptoms worsen or persist or if there are any questions or concerns that arise at home. Administered Medications: 13:12 Drug: Tetanus-Diphtheria Toxoid IM Adult 0.5 ml {Special Education Coordinator: [employer] ([employer]). kc6 Exp: 04/25/2023. Lot #: [id number]. } Route: IM; Site: right deltoid; 13:29 Follow up: Response: No adverse reaction kc6 Disposition Summary: 11/29/22 13:22 Discharge Ordered Location: Home rt Problem: new rt Symptoms: have improved rt Condition: Stable rt Diagnosis - Skin tear to left hand rt Followup: rt - With: Private Physician - When: 5 - 6 days - Reason: Discharge Instructions: - Discharge Summary Sheet rt - Skin Tear rt Forms: - Medication Reconciliation Form rt - Thank You Letter rt - Antibiotic Education rt - Prescription Opioid Use rt - Patient Portal Instructions rt - Leadership Thank You Letter rt Signatures: Edith Lr, RN RN hb Beth Rowland RN RN kc6 Moisés Dawson MD MD rt
--- NOTE | 2022-11-29 13:22 | ER ---
Nurse's Notes [facility] Name: Elvis Church Age: 87 yrs Sex: Male : 1935 Arrival Date: 11/29/2022 Time: 12:46 Bed 11 Private MD: Diagnosis: Skin tear to left hand Presentation: 11/29 12:56 Chief complaint: Shopping cart fell over when he was loading cases of water, left hand hb caught between cart and tile floor. Large skin tear noted back of left hand. Coronavirus screen: At this time, the client does not indicate any symptoms associated with coronavirus-19. Ebola Screen: No symptoms or risks identified at this time. Initial Sepsis Screen: Does the patient meet any 2 criteria? No. Patient's initial sepsis screen is negative. Does the patient have a suspected source of infection? No. Patient's initial sepsis screen is negative. Risk Assessment: Do you want to hurt yourself or someone else? Patient reports no desire to harm self or others. Onset of symptoms was November 29, 2022. 12:56 Method Of Arrival: Ambulatory hb 12:56 Acuity: AMRIT 4 hb Historical: - Allergies: 12:58 No Known Allergies; hb - PMHx: 12:58 CHF; Glaucoma; High Cholesterol; Hypertension; hb - Immunization history:: Adult Immunizations up to date. - Social history:: Smoking status: Patient denies any tobacco usage or history of. - Family history:: not pertinent. Screenin:57 [facility] ED Fall Risk Assessment (Adult) History of falling in the last 3 months, kc6 including since admission No falls in past 3 months (0 pts) Confusion or Disorientation No (0 pts) Intoxicated or Sedated No (0 pts) Impaired Gait No (0 pts) Mobility Assist Device Used No (0 pt) Altered Elimination No (0 pt) Score/Fall Risk Level 0 - 2 = Low Risk. Abuse screen: Denies threats or abuse. Denies injuries from another. Nutritional screening: No deficits noted. Tuberculosis screening: No symptoms or risk factors identified. Assessment: 13:05 General: Appears in no apparent distress. comfortable, Behavior is calm, cooperative, kc6 appropriate for age. Pain: Complains of pain in left hand. Neuro: Level of Consciousness is awake, alert, obeys commands, Oriented to person, place, time, situation, Appropriate for age. Cardiovascular: Capillary refill < 3 seconds. Respiratory: Airway is patent Trachea midline Respiratory effort is even, unlabored, Respiratory pattern is regular, symmetrical. GI: No signs and/or symptoms were reported involving the gastrointestinal system. : No signs and/or symptoms were reported regarding the genitourinary system. EENT: No signs and/or symptoms were reported regarding the EENT system. Derm: Skin has skin tears on anterior aspect of the left hand Skin is pink, warm \T\ dry. Musculoskeletal: No signs and/or symptoms reported regarding the musculoskeletal system. Circulation, motion, and sensation intact. Capillary refill < 3 seconds, Range of motion: intact in all extremities. Vital Signs: 12:56 BP 145 / 98; Pulse 69; Resp 16; Temp 98.1; Pulse Ox 100% on R/A; Weight 69.85 kg; hb Height 5 ft. 5 in. ; Pain 5/10; 12:56 Body Mass Index 25.63 (69.85 kg, 165.1 cm) hb 12:56 Pain Scale: Adult hb ED Course: 12:48 Patient arrived in ED. im 12:50 Beth Rowland, ARNOLD is Primary Nurse. kc6 12:54 Moisés Dawson MD is Attending Physician. rt 12:57 Patient has correct armband on for positive identification. Bed in low position. Call kc6 light in reach. Side rails up X 1. Adult w/ patient. 12:58 Triage completed. hb 13:07 Arm band placed on. kc6 13:20 Wound care: to skin tear located on left hand was cleaned with soap and water, kc6 irrigated with normal saline, dressed with non adherent, Patient tolerated well. 13:30 No provider procedures requiring assistance completed. Patient did not have IV access kc6 during this emergency room visit. 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 kc6 Exp: 04/25/2023. Lot #: [id number]. } Route: IM; Site: right deltoid; 13:29 Follow up: Response: No adverse reaction kc6 Medication: 13:31 VIS not applicable for this client. kc6 Outcome: 13:22 Discharge ordered by . rt 13:31 Discharged to home ambulatory, with family. kc6 13:31 Condition: stable 13:31 Discharge instructions given to patient, Instructed on discharge instructions, follow up and referral plans. wound care, Demonstrated understanding of instructions, follow-up care, wound care. 13:31 Patient left the ED. kc6 Signatures: Edith Lr RN ARNOLD hb Beth Rowland RN RN kc6 Moisés Dawson MD MD rt Sandra Dunbar Corrections: (The following items were deleted from the chart) 12:58 12:56 Acuity: AMRIT 3 hb hb
[2022-11-29 14:05] VITALS: BP 145/98; TEMP 98.1; O2SAT 100
== END 2022-11-29 13:31 | disposition home or self-care (01) ==
LOC: ER 12:46
PROC: 0HQGXZZ Repair Left Hand Skin, External Approach (ICD-10-PCS; principal; 2022-11-29)
DX: S61.412A Laceration without foreign body of left hand, initial encounter (principal); Z23 Encounter for immunization
CPT/HCPCS: 90471; 99284

== ENCOUNTER → 2023-06-22 | Emergency (ER) | payer MEDICARE, OTHER ==
[~2023-06-22] MED LIST: BUPIVACAINE 0.5% PF 10 ML VIAL ONE; LIDOCAINE 1% MPF 5 ML VIAL ONE
--- NOTE | 2023-06-22 20:32 | ER ---
Nurse's Notes [facility] Name: Elvis Church Age: 87 yrs Sex: Male : 1935 Arrival Date: 06/22/2023 Time: 18:49 Bed 8 Private MD: Diagnosis: Nail avulsion - left thumb;skin avulsion - dorsal aspect of left thumb Presentation: 06/21 19:12 Chief complaint: Patient states: I was using my saw and cut my left thumb. Coronavirus jb4 screen: At this time, the client does not indicate any symptoms associated with coronavirus-19. Ebola Screen: No symptoms or risks identified at this time. Initial Sepsis Screen: Does the patient meet any 2 criteria? No. Patient's initial sepsis screen is negative. Does the patient have a suspected source of infection? No. Patient's initial sepsis screen is negative. Risk Assessment: Do you want to hurt yourself or someone else? Patient reports no desire to harm self or others. Onset of symptoms was June 22, 2023. Transition of care: patient was not received from another setting of care. 19:12 Method Of Arrival: Ambulatory jb4 19:12 Acuity: AMRIT 4 jb4 Triage Assessment: 19:14 General: Appears in no apparent distress. comfortable, Behavior is calm, cooperative. jb4 Pain: Complains of pain in dorsal aspect of distal phalanx of left thumb Pain does not radiate. Pain currently is 4 out of 10 on a pain scale. Musculoskeletal: Circulation, motion, and sensation intact. Range of motion: intact in all extremities. Injury Description: Laceration sustained to dorsal aspect of distal phalanx of left thumb. Historical: - Allergies: 19:14 No Known Allergies; jb4 - PMHx: 19:14 CHF; Glaucoma; High Cholesterol; Hypertension; [place] (Hypertension); jb4 - PSHx: 19:14 Pacemaker (Hypertension); jb4 - Immunization history:: Adult Immunizations up to date, Last tetanus immunization: up to date. - Social history:: Smoking status: Patient denies any tobacco usage or history of. Screenin:23 [facility] ED Fall Risk Assessment (Adult) History of falling in the last 3 months, cm10 including since admission No falls in past 3 months (0 pts) Confusion or Disorientation No (0 pts) Intoxicated or Sedated No (0 pts) Impaired Gait No (0 pts) Mobility Assist Device Used No (0 pt) Altered Elimination No (0 pt) Score/Fall Risk Level 0 - 2 = Low Risk Oriented to surroundings, Maintained a safe environment, Hourly rounding (assess needs \T\ fall precautionary measures) done. Abuse screen: Denies threats or abuse. Denies injuries from another. Nutritional screening: No deficits noted. Tuberculosis screening: No symptoms or risk factors identified. Assessment: 19:20 General: Appears in no apparent distress. comfortable, Behavior is calm, cooperative. cm10 Pain: Complains of pain in dorsal aspect of distal phalanx of left thumb Pain currently is 4 out of 10 on a pain scale. Neuro: No deficits noted. Level of Consciousness is awake, alert, obeys commands, Oriented to person, place, time, situation. Cardiovascular: No deficits noted. Patient's skin is warm and dry. Respiratory: No deficits noted. Airway is patent Respiratory effort is even, unlabored, Respiratory pattern is regular, symmetrical. Derm: Skin is healthy with good turgor, Skin is pink, warm \T\ dry. Wound noted dorsal aspect of distal phalanx of left thumb Wound is Laceration to tip of left thumb, bleeding controlled. Musculoskeletal: No deficits noted. Range of motion: intact in all extremities. Injury Description: Laceration sustained to dorsal aspect of distal phalanx of left thumb is jagged, 0.5 to 2.5 cm long, not bleeding, a small amount of bleeding noted at this time. Vital Signs: 19:12 BP 141 / 91; Pulse 58; Resp 16; Temp 97.5(O); Pulse Ox 100% on R/A; Weight 70.31 kg jb4 (R); Height 5 ft. 7 in. (R); Pain 4/10; 20:30 BP 142 / 84; Pulse 44; Resp 16; Pulse Ox 98% on R/A; cm10 19:12 Body Mass Index 24.28 (70.31 kg, 170.18 cm) jb4 19:12 Pain Scale: Adult jb4 ED Course: 18:52 Patient arrived in ED. mg5 18:52 Dimple Santiago [facility]C [facility]. kb 18:53 Zbigniew Draper MD is Attending Physician. kb 19:10 Camila Clarke, ARNOLD is Primary Nurse. cm10 19:14 Triage completed. jb4 19:14 Arm band placed on right wrist. jb4 19:24 Patient has correct armband on for positive identification. Bed in low position. Call cm10 light in reach. Provided Education on: ER process and procedures. . Pulse ox on. NIBP on. 19:58 Assist provider with laceration repair on dorsal aspect of distal phalanx of left thumb cm10 using sutures. Set up tray. Performed by Dimple CALLE. 20:24 Wound care: to laceration located on dorsal aspect of distal phalanx of left thumb was cm10 dressed with Neosporin, 4X4s, Kerlix, Patient tolerated well. 20:44 Patient did not have IV access during this emergency room visit. cm10 Administered Medications: 20:23 Drug: Bupivacaine Infiltration (0.5 %) 1 vials 10 ml Infiltration once {Note: Given by cm10 provider..} Volume: 10 ml; Route: Infiltration; 20:23 Drug: Lidocaine Infiltration (1 %) 1 vials 5 ml Infiltration once; to bedside {Note: cm10 Given by provider..} Volume: 5 ml; Route: Infiltration; Medication: 19:23 VIS not applicable for this client. cm10 Outcome: 20:31 Discharge ordered by . kb 20:44 Discharged to home ambulatory, cm10 20:44 Condition: good 20:44 Discharge instructions given to patient, Instructed on discharge instructions, follow up and referral plans. medication usage, wound care, Demonstrated understanding of instructions, follow-up care, medications, wound care, Prescriptions given X 1, 20:45 Patient left the ED. cm10 Signatures: Dimple Santiago FNP-C FNP-Nick Davis, RN RN jb4 Camila Clarke, RN RN cm10 Harriet Vidales mg5
--- NOTE | 2023-06-22 20:32 | EDPHYS ---
Physician Documentation [facility] Name: Elvis Church Age: 87 yrs Sex: Male : 1935 Arrival Date: 06/22/2023 Time: 18:49 Bed 8 Private MD: ED Physician Zbigniew Draper HPI: 06/21 19:36 This 87 yrs old Male presents to ER via Ambulatory with complaints of Finger kb Injury - LAC. 19:36 Patient is a 87-year-old male who was using a table saw and accidentally cut the tip of kb his left thumb on the blade just prior to arrival.. Historical: - Allergies: 19:14 No Known Allergies; jb4 - PMHx: 19:14 CHF; Glaucoma; High Cholesterol; Hypertension; [place] (Hypertension); jb4 - PSHx: 19:14 Pacemaker (Hypertension); jb4 - Immunization history:: Adult Immunizations up to date, Last tetanus immunization: up to date. - Social history:: Smoking status: Patient denies any tobacco usage or history of. ROS: 19:34 Constitutional: As per HPI kb Exam: 19:34 Constitutional: This is a well developed, well nourished patient who is awake, alert, kb and in no acute distress. Head/Face: Normocephalic, atraumatic. ENT: Moist Mucous membranes Cardiovascular: Regular rate Respiratory: Respirations even and unlabored. No increased work of breathing. Talking in full sentences MS/ Extremity: Pulses equal, no cyanosis. Neurovascular intact. Full, normal range of motion. Neuro: Awake and alert, GCS 15, oriented to person, place, time, and situation. Moves all extremities. Normal gait. 19:34 Skin: avulsion to dorsal aspect of tip of left thumb. Vital Signs: 19:12 BP 141 / 91; Pulse 58; Resp 16; Temp 97.5(O); Pulse Ox 100% on R/A; Weight 70.31 kg jb4 (R); Height 5 ft. 7 in. (R); Pain 4/10; 20:30 BP 142 / 84; Pulse 44; Resp 16; Pulse Ox 98% on R/A; cm10 19:12 Body Mass Index 24.28 (70.31 kg, 170.18 cm) jb4 19:12 Pain Scale: Adult jb4 Procedures: 19:33 Nerve block: (digital) of palmar aspect of proximal phalanx of left thumb Medication: kb Lidocaine 1% without epinephrine Marcaine 0.5%, Amount: 4 mls were injected, Effect: the patient has resolution of the pain, Set up for procedure. Performed by Dimple CALLE Patient tolerated well. MDM: 18:53 Patient medically screened. kb 19:33 Data reviewed: vital signs, nurses notes. kb 19:35 Differential diagnosis: laceration, avulsion, partial amputation. Counseling: I had a kb detailed discussion with the patient and/or guardian regarding the historical points, exam findings, and any diagnostic results supporting the discharge/admit diagnosis, the need for outpatient follow up, a family practitioner, to return to the emergency department if symptoms worsen or persist or if there are any questions or concerns that arise at home. 20:30 ED course: nail removed, one 5.0 vicryl suture placed to repair nailbed. Nail replaced kb into matrix, figure 8 suture (4.0 prolene) placed to secure nail.. 06/21 19:10 Order name: Dressing - Wound; Complete Time: 19:20 kb 06/21 19:10 Order name: Gloves, Sterile; Complete Time: 19:20 kb 06/21 19:10 Order name: Prolene, Sutures; Complete Time: 19:20 kb 06/21 19:10 Order name: Setup Suture Tray; Complete Time: 19:20 kb Administered Medications: 20:23 Drug: Bupivacaine Infiltration (0.5 %) 1 vials 10 ml Infiltration once {Note: Given by cm10 provider..} Volume: 10 ml; Route: Infiltration; 20:23 Drug: Lidocaine Infiltration (1 %) 1 vials 5 ml Infiltration once; to bedside {Note: cm10 Given by provider..} Volume: 5 ml; Route: Infiltration; Disposition: 06/22 08:17 Co-signature as Attending Physician, Zbigniew Draper MD I agree with the assessment and cp3 plan of care. Disposition Summary: 06/22/23 20:31 Discharge Ordered Notes: Location: Home Condition: Stable kb Diagnosis - Nail avulsion - left thumb kb - skin avulsion - dorsal aspect of left thumb kb Followup: kb - With: Emergency Department - When: As needed - Reason: Worsening of condition Followup: kb - With: Private Physician - When: 2 - 3 days - Reason: Recheck today's complaints, Continuance of care, Re-evaluation by your physician Discharge Instructions: - Discharge Summary Sheet kb - Nail Avulsion kb - Deep Skin Avulsion kb Forms: - Medication Reconciliation Form kb - Thank You Letter kb - Antibiotic Education kb - Prescription Opioid Use kb - Patient Portal Instructions kb - Leadership Thank You Letter kb Prescriptions: - Cephalexin 500 mg Oral Capsule - take 1 capsule ORAL route every 8 hours for 10 days; 30 capsule; Refills: 0, kb Product Selection Permitted Signatures: Dimple Santiago, TORI-C Zbigniew Lopez MD MD cp3 Nick Blanco RN RN jb4 Camila Clarke RN RN cm10
[2023-06-22 21:07] VITALS: BP 142/84; TEMP 97.5; O2SAT 98
== END ==
LOC: ER 18:49
PROC: 0HQQXZZ Repair Finger Nail, External Approach (ICD-10-PCS; principal; 2023-06-22)
DX: S61.102A Unspecified open wound of left thumb with damage to nail, initial encounter (principal); Z95.0 Presence of cardiac pacemaker
CPT/HCPCS: 64450; 99284; 11760; J2001